=== PATIENT | male | born 1950 | race Caucasian/White ===

== ENCOUNTER → 2016-06-14 | Outpatient (CLI) | payer OTHER ==
[2016-03-29 12:20] VITALS: BP 116/91
[~2016-06-14] MED LIST: CYCL10TA2 PO; DIVA500T4 PO; FLUV100C2 PO; FLUV100T2 PO; HYDR200T PO; HYDR4TAB13 PO; IBUP200C9 PO; LIDO700A4 TP; LORA2TAB89 PO; OMEG-33 PO; OXYC-250 PO; OXYC10TA32 PO; OXYC20OR PO; OXYC20TA34 PO; PRED20TA PO; PRED50TA PO; PRED5SOL PO; PRIM250T28 PO; PROP60CA8 PO; RIVA20TA2 PO; VITA1000 PO
--- NOTE | 2016-06-14 11:26 | KCIC ---
PROCEDURE Bone mineral density exam HISTORY Steroid use, back pain, loss of height COMPARISON None FINDINGS Bone mineral density exam utilizing DEXA was performed. Lumbar spine bone mineral density was 1.290 grams/centimeter squared which corresponds with T-score 1.8 and a Z-score 2.6. Left hip bone mineral density was 1.014 grams/centimeter squared which corresponds with T-score of-0.1 and a Z-score 0.4. World Health Organization criteria for bone mineral density interpretation: Normal T-score greater than or equal to-1.0, Osteopenia T score between-1.0 and-2.5, Osteoporosis T-score less than or equal to-2.5. IMPRESSION There is normal bone density of the lumbar spine and the left hip. Electronically signed by: Dipesh Castro MD (Jun 14, 2016 11:24:59)
== END | disposition home or self-care (01) ==
LOC: KCIC DEXA 10:50
PROVIDERS: ATTEND Internal Medicine Rheumatology
DX: M54.9 Dorsalgia, unspecified (principal); R29.890 Loss of height; M81.8 Other osteoporosis without current pathological fracture
CPT/HCPCS: 77080

== ENCOUNTER → 2016-08-21 | Outpatient (CLI) | payer OTHER ==
[2016-03-29 12:20] VITALS: BP 116/91
--- NOTE | 2016-08-22 00:51 | PAIN ---
DATE OF SERVICE: 08/21/2016 DIAGNOSES: 1. 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 2. Myofascial pain. HISTORY OF PRESENT ILLNESS: The patient is a 66-year-old male who returns for followup status post thoracic facet injections as well as radiofrequency of the thoracic T6-7, T7-8, and T8-9 levels. The patient also has been managed with medication including Percocet and hydromorphone, which he is doing very well with. The patient has increased his activity with greater ease and comfort and is actually walking in today without use of his wheelchair, which is a significant stepper. He is trying to increase his activity better, trying to strengthen his back and leg muscles, he still has some balance issues, but is on his feet today and walking and looking much more comfortable. The patient reports still having pain in his low back as well as his right flank and chest mainly in the upper mid back on the right side. The patient reports it is tolerable with medication and is controlled about 80% without significant side effects. The patient is quite pleased with this. He did have some constipation, but has been using MiraLax with excellent results. We did try some Amitiza within the last visit, but this was only minimally helpful and the patient reports using MiraLax is much more effective and well tolerated. He also is keeping himself hydrated. The patient reports his pain is 4 on a scale 10 today, described as sharp, dull, alternating and worse with activity, but again he has been increasing his activity with better ease and ____ with medications and again without side effects. PHYSICAL EXAMINATION: VITAL SIGNS: The patient's blood pressure is 125/80, pulse 54, respirations are 18, temperature is 98.1 degrees Fahrenheit. Height is 6 feet 1 inch, weight is 276 pounds. GENERAL: The patient is awake, alert, oriented, appropriate, very pleasant demeanor. HEENT: Shows normocephalic, atraumatic. Extraocular movements are intact and symmetrical. Oral cavity, mucous membranes are moist and pink. Dentition is intact. NECK: Shows anterior throat supple without palpable lymphadenopathy noted. Swallow reflex is symmetrical. Neck shows full rotational motion of the cervical spine without difficulty or tenderness. CHEST: Shows normal on inspection. Breath sounds clear to auscultation bilaterally. HEART: Shows S1 and S2 clear. No murmurs are auscultated. BACK: The patient's posterior chest wall and ribs shows some moderate tenderness with palpation in the thoracic paraspinous musculature on the right side compared to the left in the mid and low distribution, but without significant pain in the upper and middle distribution of paraspinous muscles, rhomboid or trapezius, which are supple with palpation today without specific trigger points, without specific tenderness, which is found exceptional for him as he is usually very tender in this region. The patient's lower extremity show deep tendon reflexes at 1+ in the patellar and tendo calcaneus tendons are equal. Motor exam is approximately 4/5 with dorsiflexion, extension and 4/5 with quadriceps and hamstring flexion, but equal and symmetrical bilaterally. Again, the patient is able to stand, stand on his own power, he is not using any assistive devices; however, he is holding on to the wall fairly significantly when ambulating, does look a bit off balance. We discussed perhaps using a cane in the future as well with the patient. Options were discussed with the patient. The patient's old chart was reviewed and his current medication regimen updated. Current review of systems updated to date as well. We will refill the patient's medications of Percocet as well as hydromorphone with instructions, side effects to be aware of discussed. Also encouraged the patient obtain a cane and/or walker. He would like to start with a cane. We gave him some information ____ to obtain one and sizing, etc. Also, the patient will maintain hydration and MiraLax as necessary for constipation. The patient will follow in approximately 60 days, given 2-month prescription refill with instructions, side effects to be aware of. The patient will follow up as scheduled. ABBIE VALENCIA MD DR: JULIEN/sonam JOB#: [id number] / [id number]
== END | disposition home or self-care (01) ==
LOC: PNCL 13:36
PROVIDERS: ATTEND Anesthesiology
DX: M51.34 Other intervertebral disc degeneration, thoracic region (principal); M47.894 Other spondylosis, thoracic region; M51.24 Other intervertebral disc displacement, thoracic region; M79.1 Myalgia
CPT/HCPCS: G0463

== ENCOUNTER 2016-09-16 07:29 | Inpatient (IN) | payer OTHER ==
[~2016-09-16] VITALS: Ht 185.4 cm; Wt 126.1 kg
[2016-09-16] MEDS ORDERED: IV NORMAL SALINE 1000ML BAG 1,000 ML IV SCH (07:44)
[2016-09-16] MEDS ORDERED: IPRATRPIUM/ALBUTEROL 0.5/2.5MG 3 ML NEBU. NEB ONE (07:45)
--- NOTE | 2016-09-16 07:56 | PHYS DOC ---
Past Medical History Past Medical History: Bipolar, Other Additional Past Medical Histor: low back pain, tremors, "unidentified autoimmune disorder" Past Surgical History: Cholecystectomy, Other Additional Past Surgical Histo: pericardial sac removed, lumbar surgery Alcohol Use: None Drug Use: None Adult General Chief Complaint Chief Complaint: SHORTNESS OF BREATH HPI HPI Patient is a 66 year old male brought to the ED by his with the complaint of shortness of air since yesterday, getting worse. Patient does not have any history of COPD or asthma. 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 The patient had shortness of air and "wheezing, rattling, since last evening, worsening. No known fever. Denies vomiting. Denies significant pain at this time. Patient has no history of CHF, A. fib, or coronary artery disease. He had a pericardiectomy in the related to his autoimmune disease. PCP in [place], he sees Dr. Mckee at the pain clinic here, also sees a miniature set constructor. Medications include Depakote 500 twice a day for bipolar, Luvoxx, primidone, Dilaudid and Percocet daily for pain, Inderal 20 twice a day, Flexeril, prednisone 20 mg daily, vitamin E and fish oil Review of Systems Review of Systems Constitutional: No known fever per the patient or Eyes: Denies change in visual acuity, redness, or eye pain [] HENT: Denies nasal congestion or sore throat [] Respiratory: As in history of present illness Cardiovascular: No significant chest pain changed from usual GI: Denies abdominal pain, nausea, vomiting, bloody stools or diarrhea [] : Denies dysuria or hematuria [] Musculoskeletal: Chronic back and joint pain Integument: Denies rash or skin lesions [] Neurologic: Denies headache, focal weakness or sensory changes [] Current Medications Current Medications Current Medications Medications (Trade) Dose Ordered Sig/Ayanna Start Time Stop Time Status Last Admin Dose Admin Albuterol/ Ipratropium 3 ml 3 ml 1X ONCE 09/16/16 07:45 09/16/16 07:47 DC 09/16/16 08:02 3 ML Sodium Chloride (Iv Sodium Chloride 0.9% 1000ml Bag) 1,000 ml @ 100 mls/hr Q10H 09/16/16 07:56 Allergies Allergies Allergies Coded Allergies Type Severity Reaction Last Updated Verified No Known Allergies Allergy Unknown 10/27/13 Yes Physical Exam Physical Exam Constitutional: Obese male, appears dyspneic on room air, alert, color is good, mentating normally, pulse ox on room air 93% HENT: Normocephalic, atraumatic, bilateral external ears normal, nose normal. [ ] Eyes:, conjunctiva normal, no discharge. [] Neck: Normal range of motion, no stridor. [] Cardiovascular:Heart rate regular rhythm, no murmur [] Lungs & Thorax: Breath sounds present bilaterally, mildly diminished, no prolongation of expiratory phase, expiratory wheezes mild, scattered throughout Abdomen: Obese, Bowel sounds normal, soft, no tenderness, no masses, no pulsatile masses. [] Skin: Warm, dry, no erythema, no rash. [] Extremities: No tenderness, no cyanosis, no clubbing, ROM intact, no edema. [] Neurologic: Alert and oriented X 3, normal motor function, normal sensory function, no focal deficits noted. [] Current Patient Data Vital Signs Vital Signs Date Time Temp Pulse Resp B/P Pulse Ox O2 Delivery O2 Flow Rate FiO2 09/16/16 07:56 95 Nasal Cannula 2.0 09/16/16 07:51 75 24 152/95 09/16/16 07:35 99.2 99.2 Lab Values Laboratory Tests Test 09/16/16 07:47 09/16/16 07:55 09/16/16 08:25 White Blood Count 12.3x10^3/uL (4.0-11.0) H Red Blood Count 3.89x10^6/uL (4.30-5.70) L Hemoglobin 11.5g/dL (13.0-17.5) L Hematocrit 35.8% (39.0-53.0) L Mean Corpuscular Volume 92fL (79-100) Mean Corpuscular Hemoglobin 30pg (25-35) Mean Corpuscular Hemoglobin Concent 32g/dL (31-37) Red Cell Distribution Width 13.6% (11.5-14.5) Platelet Count 203x10^3/uL (140-400) Neutrophils (%) (Auto) 65% (31-73) Lymphocytes (%) (Auto) 23% (24-48) L Monocytes (%) (Auto) 10% (0-9) H Eosinophils (%) (Auto) 1% (0-3) Basophils (%) (Auto) 0% (0-3) Neutrophils # (Auto) 8.0x10^3uL (1.8-7.7) H Lymphocytes # (Auto) 2.9x10^3/uL (1.0-4.8) Monocytes # (Auto) 1.3x10^3/uL (0.0-1.1) H Eosinophils # (Auto) 0.1x10^3/uL (0.0-0.7) Basophils # (Auto) 0.1x10^3/uL (0.0-0.2) Sodium Level 136mmol/L (136-145) Potassium Level 4.2mmol/L (3.5-5.1) Chloride Level 98mmol/L (98-107) Carbon Dioxide Level 31mmol/L (21-32) Anion Gap 7 (6-14) Blood Urea Nitrogen 19mg/dL (8-26) Creatinine 1.0mg/dL (0.7-1.3) Estimated GFR (Cockcroft-Gault) 75.0 BUN/Creatinine Ratio 19 (6-20) Glucose Level 95mg/dL (70-99) Lactic Acid Level 1.4mmol/L (0.4-2.0) Calcium Level 8.7mg/dL (8.5-10.1) Total Bilirubin 0.3mg/dL (0.2-1.0) Aspartate Amino Transferase (AST) 20U/L (15-37) Alanine Aminotransferase (ALT) 31U/L (16-63) Alkaline Phosphatase 54U/L (46-116) Creatine Kinase 28U/L (39-308) L Creatine Kinase MB (Mass) < 0.5ng/mL (0.0-3.6) Creatine Kinase MB Relative Index % (0-4) Troponin I Quantitative < 0.017ng/mL (0.000-0.055) AJ-Rvv-S-Type Natriuretic Peptide 2190pg/mL (0-124) H Total Protein 7.4g/dL (6.4-8.2) Albumin 3.0g/dL (3.4-5.0) L Albumin/Globulin Ratio 0.7 (1.0-1.7) L Influenza Type A Antigen Negative (NEGATIVE) Influenza Type B Antigen Negative (NEGATIVE) Urine Collection Type Void Urine Color Yellow Urine Clarity Clear Urine pH 6.5 Urine Specific [place] 1.020 Urine Protein Negativemg/dL (NEG-TRACE) Urine Glucose (UA) Negativemg/dL (NEG) Urine Ketones (Stick) Negativemg/dL (NEG) Urine Blood Small (NEG) Urine Nitrite Negative (NEG) Urine Bilirubin Negative (NEG) Urine Urobilinogen Dipstick 1.0mg/dL (0.2 mg/dL) Urine Leukocyte Esterase Trace (NEG) Urine RBC 3-5/HPF (0-2) Urine WBC Occ/HPF (0-4) Urine Bacteria 0/HPF (0-FEW) Laboratory Tests 09/16/16 07:47 Laboratory Tests 09/16/16 07:47 EKG EKG 12-lead EKG read by me. Sinus rhythm. One PAC. There are no acute ST or T wave changes indicative of ischemia or infarction. No STEMI. 0741 [] Radiology/Procedures Radiology/Procedures [] Course & Med Decision Making Course & Med Decision Making Pertinent Labs and Imaging studies reviewed. 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 He has no history of cardiac disease, no history of CHF or A. fib, he has no edema and does not appear wet. EKG appears normal. His temp is slightly elevated at 99 to, I believe he likely has pneumonia. We'll start him with a breathing treatment during ED evaluation. It does not seem like the albuterol treatment helped his symptoms much. Chest x- ray clear. I'm still suspicious of pneumonia. I discussed with the radiologist, Dr. Lora, and will order a CT scan of his chest with contrast. Recheck patient at 0850. He is resting more comfortably wearing 2 L nasal cannula. He is laying flat on the cart with no dyspnea. I stopped his IV fluids. At this time did not give him any IV furosemide because I'd like to see the results of the CT scan. I discussed the case with Dr. Solorzano, [facility] medicine, who will admit the patient. I wrote bridge orders. Patient and his are agreeable to the plan for admission. [] Dragon Disclaimer Dragon Disclaimer This electronic medical record was generated, in whole or in part, using a voice recognition dictation system. Departure Departure Impression: Primary Impression: Community acquired pneumonia Additional Impression: Steroid dependent Disposition: ADMITTED INPATIENT Admitting Physician: Edgar Solorzano Condition: STABLE Referrals: ANUEL MAYER MD (PCP) Problem Qualifiers UBALDO ALVARENGA MD Sep 16, 2016 07:55
[2016-09-16 08:04] LABS: BASO # 0.1 x10^3/uL (0.0-0.2); BASO % 0 % (0-3); EOS % 1 % (0-3); HEMATOCRIT 35.8 % (39.0-53.0); HEMOGLOBIN 11.5 g/dL (13.0-17.5); LYMPH # 2.9 x10^3/uL (1.0-4.8); LYMPH % 23 % (24-48); MEAN CORPUSCULAR HEMOGLOBIN 30 pg (25-35); MEAN CORPUSCULAR HGB CONC 32 g/dL (31-37); MEAN CORPUSCULAR VOLUME 92 fL (79-100); MONO % 10 % (0-9); NEUT % 65 % (31-73); PLATELET COUNT 203 x10^3/uL (140-400); RED BLOOD COUNT 3.89 x10^6/uL (4.30-5.70); RED CELL DISTRIBUTION WIDTH 13.6 % (11.5-14.5); WHITE BLOOD COUNT 12.3 x10^3/uL (4.0-11.0)
[2016-09-16 08:15] LABS: CALCIUM 8.7 mg/dL (8.5-10.1); POTASSIUM 4.2 mmol/L (3.5-5.1)
[2016-09-16 08:19] LABS: ALBUMIN/GLOBULIN RATIO 0.7 (1.0-1.7); TOTAL BILIRUBIN 0.3 mg/dL (0.2-1.0); TOTAL PROTEIN 7.4 g/dL (6.4-8.2)
--- NOTE | 2016-09-16 08:24 | RAD ---
PORTABLE CHEST 1V Clinical Indication: soa Comparison: April 15, 2015 Technique: Single portable upright AP view of the chest is obtained. Findings: The patient is rotated to the right. No focal consolidation, pleural effusion or pneumothorax is seen. The inferior lateral left costophrenic angle is excluded from view. The cardiomediastinal silhouette appears stable in size, with stable cardiomegaly. Median sternotomy wires are redemonstrated. Visualized osseous structures and overlying soft tissues demonstrate no acute interval change. IMPRESSION: No focal consolidation or acute radiographic change.
[2016-09-16 08:31] LABS: CKMB MASS < 0.5 ng/mL (0.0-3.6); CREATINE KINASE 28 U/L (39-308)
[2016-09-16 08:32] LABS: OBC FLU VALID
[2016-09-16 08:33] LABS: BILIRUBIN,URINE NEGATIVE (NEG); GLUCOSE,URINE NEGATIVE (NEG); NITRITE,URINE NEGATIVE (NEG); PH,URINE 6.5; PROTEIN,URINE NEGATIVE (NEG-TRACE)
[2016-09-16 08:57] LABS: BACTERIA,URINE 0 /HPF (0-FEW); WBC,URINE OCC /HPF (0-4)
[2016-09-16] MEDS ORDERED: CONTRAST GIVEN MC PRN (09:15)
[2016-09-16] MEDS ORDERED: IOHEXOL 300 MG/ML 75 ML VIAL IV ONE (09:15)
--- NOTE | 2016-09-16 09:45 | ACF ---
Admit Criteria Forms Admit Criteria Forms Admit Criteria Forms PNEUMONIA, COMMUNITY ACQUIRED Clinical Indications for Admission to Inpatient Care ( Place 'X' for any and all applicable criteria): Admission is indicated for ANY ONE of the following (1)(2)(3): [ ]I. Hypoxemia indicated by ANY ONE of the following: [ ]a) Oxygen saturation less than 90% while breathing room air [ ]b) PO2 less than 60 mm Hg (8.0 kPa) while breathing room air [ ]c) Chronic lung disease with significant deterioration from baseline oxygenation [ ]II. Appropriate diagnostic testing and treatment unavailable in outpatient or recovery facility (eg,testing or infection control measures unavailable(10) [ ]III. Moderate-risk or high-risk category patients (Pneumonia Severity Index (PSI) class IV or V, or CURB-65 score of 3 or greater). [ ]IV. Outpatient treatment failure as indicated by ANY ONE of the following(9) : [ ]a) Failure to respond to antibiotic (eg, resistant organism) [ ]b) Clinically significant adverse effects from medication (eg, vomiting) [ ]c) Complications of pneumonia (eg, empyema, bacteremia) [ ]d) Significant worsening of comorbid cond necessitating inpatient care (eg, chronic heart failure) [ ]V. Intermediate-risk category patients (eg, PSI class III or CURB-65 score 2) who do not improve with initial therapy and observation. [ ]. Immunocompromised patients (eg, AIDS, chronic steroid use) at moderate or high risk based on clinical evaluation. [ ]VII. Complicated pleural effusions (eg, exudative, loculated) [ ]VIII.Hemodynamic instability [ ] IX. Altered mental status that is severe or persistent. [ ]X. Dehydration that is severe or persistent. [ ]XI. Bacteremia [X]XII. Respiratory finding (eg. tachypnea) that do not respond to outpatient or observation care treatment Extended stay beyond goal length of stay may be needed for (20) [ ]a) Unclear diagnosis [ ]b) Pleural disease [ ]c) Severe pneumonia or treatment failure (25 [ ]d) Respiratory failure (anticipate invasive or noninvasive ventilatory support) [ ]e) Abnormal serum electrolytes (serum Na concentration less than 135 mEq/L (mmol/L) (32)(33) [ ]f) Clinically significant comorbid illness (eg, heart failure, atrial fibrillation with rapid heart rate, alcohol withdrawal, renal insufficiency)(34)(35) [ ]g) Comorbid acute exacerbation of COPD(36) [ ]h) Concomitant diagnosis of malignancy that may be associated with malnutrition, immunologic impairment, or bronchial obstruction. [ ]i) Concomitant altered mental status [ ]j) Culture-identified Gram-negative or antibiotic-resistant organism (eg, Pseudomonas, methicillin-resistant Staphylococcus aureus)(30) [ ]k) Healthcare-associated pneumonia The original [email or web address] content created by [employer] has been revised. The portions of the content which have been revised are identified through the use of italic text or in bold, and [facility] has neither reviewed nor approved the modified material. All other unmodified content is copyright [email or web address]. Please see references footnoted in the original [email or web address] edition 2016 SUDHA GALLARDO Sep 16, 2016 09:45
--- NOTE | 2016-09-16 09:57 | RAD ---
EXAM: Chest CT with intravenous contrast. HISTORY: 66-year-old male with shortness of breath, crackles when breathing. TECHNIQUE: Computed tomographic images of the chest were obtained following the administration of 75 cc of Omni 300 intravenous contrast. Multiplanar reformatting was performed. PQRS Compliance Statement: One or more of the following individualized dose reduction techniques were utilized for this examination: 1. Automated exposure control 2. Adjustment of the mA and/or kV according to patient size 3. Use of iterative reconstruction technique COMPARISON: May 14, 2005. FINDINGS: No focal consolidation is present. Scattered centrilobular nodules and opacities are present within the right lung. The left lung is clear. No significant pleural effusion or pneumothorax is present. Central airways remain patent. A few scattered mediastinal lymph nodes are present, although without significant change when compared to the previous CT exam. Post-CABG changes are present. Heart is within upper limits of normal in size, without pericardial effusion. Coronary artery calcification is present. Thoracic aorta is normal in caliber with scattered atherosclerotic calcification. Overlying soft tissues and visualized osseous structures demonstrate no acute or suspicious finding. Visualized upper abdomen demonstrates no acute finding. Gallbladder is surgically absent. Degenerative changes are present throughout the spine. Healed anterior right-sided rib fractures are present. Median sternotomy wires are present. Post kyphoplasty changes at the L1 level. IMPRESSION: Scattered centrilobular nodules and groundglass opacities within the right lung, likely represent an infectious or inflammatory etiology. No focal consolidation. Left lung is clear.
[2016-09-16 10:25] VITALS: BP 134/74
[2016-09-16] MEDS ORDERED: PRIM250T (10:54)
[2016-09-16] MEDS ORDERED: OXYC1TAB9 (10:54)
[2016-09-16] MEDS ORDERED: DIVA500T4 PO (10:54)
[2016-09-16] MEDS ORDERED: FLUV100T2 PO (10:57)
[2016-09-16 10:59] VITALS: BP 134/74
[2016-09-16] MEDS ORDERED: PROP20TA PO (11:03)
[2016-09-16] MEDS ORDERED: DOCU-27 PO (11:03)
[2016-09-16] MEDS ORDERED: SENN8.6T3 PO (11:03)
--- NOTE | 2016-09-16 11:08 | PDOC ---
Provider Note Provider Note [id number] acute resp faiil acute bronchitis vs pneumonia ae of copd ? id consult, see orders. МАРИЯ MAJANO MD Sep 16, 2016 11:08
[2016-09-16] MEDS: IV NORMAL SALINE 1000ML BAG 1,000 ML IV SCH ×3 (11:49→23:00)
--- NOTE | 2016-09-16 11:55 | CONS ---
DATE OF CONSULTATION: 09/16/2016 I was asked to see this 66-year-old gentleman for shortness of breath, cough, wheezing. HISTORY OF PRESENT ILLNESS: He is a lifelong nonsmoker. He has history of pulmonary embolism two years ago, he was on Eliquis for 4 months. He has some sort of autoimmune disease and he is on prednisone 20 mg daily, so he has good days and bad days worth, but for the past 2 or 3 days he has had increased shortness of breath and cough with no sputum production. He denies chest pain, but has had wheezing. He has excessive daytime sleepiness, had an overnight oximetry done 2 years ago, which was not suggestive of sleep apnea. PAST MEDICAL HISTORY: Pulmonary embolism, back surgery, autoimmune disorder. ALLERGIES: No known drug allergies. MEDICATIONS: Currently, he is on IV fluid. SOCIAL HISTORY: He is a lifelong nonsmoker. FAMILY HISTORY: There is no history of lung disease. REVIEW OF SYSTEMS: As mentioned as above, other systems otherwise negative. PHYSICAL EXAMINATION: GENERAL: This is an obese gentleman. VITAL SIGNS: His O2 saturation on 2 liters of oxygen is 95%, respiratory rate 24, heart rate 75, temperature 99.2. HEENT: Normocephalic, atraumatic. Pupils are equal, round and reactive to light. Throat is clear. There is dependent palate right tongue base. Nose is clear. NECK: There is no JVD, lymphadenopathy or thyromegaly. CARDIOVASCULAR: Regular rate and rhythm. PMI is nondisplaced. CHEST: Inspection is normal. LUNGS: There is bilateral end expiratory wheezing. Percussion is within normal limit. ABDOMEN: Soft and obese. Bowel sounds are good. There is no mass. EXTREMITIES: There is no edema. LYMPHATICS: There is no lymphadenopathy. NEUROLOGIC: Alert and oriented x 3. SKIN: Chronic changes. LABORATORY DATA: I reviewed the following lab data: Chest x-ray shows no infiltrates. CT of the chest shows scattered centrilobular nodules and ground-glass opacities within the right lung. Left lung is clear. IMPRESSION: 1. Acute respiratory failure, multifactorial in etiology including acute exacerbation of asthma, acute bronchitis versus pneumonia versus others. 2. Abnormal CT of the chest. 3. Acute exacerbation of asthma. 4. Acute bronchitis versus pneumonia. 5. Immunocompromised. 6. Obesity, excessive daytime sleepiness, probable obstructive sleep apnea-hypopnea syndrome. 7. Autoimmune disease. 8. Leukocytosis. 9. Anemia. PLAN AND RECOMMENDATIONS: 1. Titrate the FiO2 to keep O2 saturation 92%. 2. Start bronchodilator. 3. Start Pulmicort. 4. Start Solu-Medrol 40 mg IV every 8 hours. 5. Protonix and Lovenox for deep venous thrombosis and stress ulcer prophylaxis. 6. Legionella and strep pneumoniae antigen. 7. I do recommend Infectious Disease consultation. The patient is immunocompromised. 8. Start Levaquin. 9. If he does not improve, he may require bronchoscopy to rule out atypical or opportunistic infection. 10. I do recommend sleep study as an outpatient. 11. Monitor respiratory status very closely. 12. Echocardiogram. 13. The findings and recommendations were discussed with the patient and his . They understood and agreed to proceed with the plan. I have answered all of their questions. Thank you very much for allowing me to participate in care of this very nice gentleman. МАРИЯ MAJANO M.D. DR: COREY/sonam JOB#: [id number] / [id number]
[2016-09-16] MEDS: IPRATRPIUM/ALBUTEROL 0.5/2.5MG 3 ML NEBU. NEB SCH ×3 (12:00→20:28)
[2016-09-16] MEDS: BUDESONIDE 0.5 MG/2 ML NEBU. NEB SCH ×2 (12:00→20:29)
--- NOTE | 2016-09-16 12:02 | EKG ---
[facility] [address] [place] [id number] Test Date: 2016-09-16 Test Time: 07:41:37 Pat Name: KENROY MCKINNEY Department: Room: Gender: M Direct Mail Coordinator: : 1950 Requested By: UBALDO ALVARENGA Order Number: [id number] Reading MD: Measurements Intervals [place] Rate: 70 P: 0 MS: 308 QRS: -24 QRSD: 106 T: 31 QT: 376 QTc: 409 Interpretive Statements SINUS RHYTHM PROLONGED MS INTERVAL LEFTWARD AXIS RI6.01 No previous ECG available for comparison
[2016-09-16] MEDS ORDERED: HYDROMORPHONE 4 MG TABLET. PO PRN (13:30)
[2016-09-16] MEDS ORDERED: CYCLOBENZAPRINE 10 MG TABLET. PO PRN (13:30)
[2016-09-16] MEDS ORDERED: SENNOSIDES 8.6 MG TABLET PO PRN (13:30)
[2016-09-16] MEDS ORDERED: DOCUSATE SODIUM 100 MG CAPSULE. PO PRN (13:30)
[2016-09-16] MEDS ORDERED: methylPREDNISolone SOD SUCC PF 40 MG/ML VIAL. IV SCH (14:00)
[2016-09-16] MEDS ORDERED: PREDNISONE 20 MG TABLET PO SCH (14:00)
[2016-09-16] MEDS: DIVALPROEX EXTENDED RELEASE 500 MG TAB.ER.24H. PO SCH ×2 (14:52→21:25)
[2016-09-16] MEDS: OXYCODONE/APAP 10/325 TABLET. PO PRN (14:52)
[2016-09-16 15:00] VITALS: BP 133/90
[2016-09-16] MEDS: ENOXAPARIN 40 MG/0.4 ML SYRINGE. SQ SCH (17:06)
[2016-09-16] MEDS: PRIMIDONE 250 MG TABLET PO SCH ×2 (17:06→21:26)
[2016-09-16 19:57] VITALS: BP 143/92
[2016-09-16] MEDS ORDERED: PRIMIDONE 250 MG TABLET PO SCH (21:00)
[2016-09-16] MEDS: PROPRANOLOL 10 MG TABLET. PO SCH (21:00)
[2016-09-16] MEDS: OMEGA-3 FATTY ACIDS/FISH OIL 1,000 MG CAPSULE. PO SCH (21:25)
[2016-09-16 23:11] VITALS: BP 148/84
--- NOTE | 2016-09-17 00:37 | HP ---
ADMIT DATE: 09/16/2016 CHIEF COMPLAINT: Shortness of breath. HISTORY OF PRESENT ILLNESS: A 66-year-old male patient with several comorbid conditions, presented to the ER with complaints of shortness of breath for 3 days with cough with minimal expectoration. The patient's ability to function is limited due to comorbid conditions; however, for last few days, his shortness of breath is very high. He denies any fever or chills. He is chronically taking steroids for his unknown rheumatological condition. At the time of arrival to the ER, the patient was with shortness of breath; however, he was saturating more than 90% on 2 liters of oxygen. He is actively wheezing. He denies any sick contacts or travel history. PAST MEDICAL HISTORY: Pulmonary embolism, back surgery, and rheumatological condition. ALLERGIES: NKDA. MEDICATIONS: Reviewed and reconciled. Please see MRAD. SOCIAL HISTORY: No smoking, no alcohol, no drug abuse. FAMILY HISTORY: No coronary artery disease or lung conditions. REVIEW OF SYSTEMS: CONSTITUTIONAL: No fever or chills. EYES: No recent vision changes. SKIN: No rash or itching. CARDIOVASCULAR: No chest pain, syncope, palpitations or edema. RESPIRATORY: Short of breath and cough. GASTROINTESTINAL: No nausea, vomiting, diarrhea or abdominal pain. NEUROLOGICAL: No headache, paralysis. ENDOCRINOLOGIC: No cold or heat intolerance. GENITOURINARY: No burning with urination, no urgency. MUSCULOSKELETAL: No back pain or joint pain. LYMPHATICS: No enlarged nodes. PSYCHIATRIC: No anxiety or depression. PHYSICAL EXAM: GENERAL: The patient is in distress. VITAL SIGNS: Temperature 97.8, pulse is 71, respirations 20, blood pressure 134/74, pulse ox 98% on 2 liters. HEENT: Head normocephalic, atraumatic. NECK: Supple. LUNGS: There is bilateral inspiratory and expiratory wheezing present. Normal air entry. HEART: Regular rate and rhythm; S1, S2 present; pulses intact. ABDOMEN: Soft and positive bowel sounds. EXTREMITIES: No cyanosis or edema. NEUROLOGIC: Normal speech and normal tone; alert and oriented. PSYCHIATRIC: Normal affect, normal mood. SKIN: No ulceration. LABORATORY DATA: WBC 12.3, hemoglobin is ____, MCV 92, platelets 203. Chemistry: Sodium 136, potassium 4.2, chloride is 98, anion gap is 7, BUN is 19, creatinine 1.0, ____. Troponin is less than 0.017. Albumin is 3.0. Urine: Color is yellow, pH is 6.5, protein negative, blood small, nitrites negative, bilirubin negative. Influenza A and B negative. IMAGING STUDIES: CT of the chest showed scattered centrilobular nodules and ground-glass opacities within the right lung, possible infectious or inflammatory process. No solid consolidation seen. ASSESSMENT: 1. Acute respiratory failure present on admission. Possible differential infectious versus inflammatory process. 2. Possible acute bronchitis. 3. Immunocompromised, chronic steroid use. 4. Obesity. BMI is 37.0. 5. Mild leukocytosis. 6. Physical debility. PLAN: 1. The patient has been kept on oxygen to keep saturations around 90% and DuoNebs every 4-6 hours for symptomatic relief. 2. Pulmonology has been started on Pulmicort and IV Solu-Medrol 40 mg t.i.d. 3. Lovenox for DVT prophylaxis. 4. He has been started on IV Levaquin in the ER. We will continue that. 5. Labs for legionella and pneumococcal antigen are pending. 6. Echocardiogram ordered and it is pending. 7. Monitor clinical response closely. 8. DVT prophylaxis with Lovenox. JOVANA CISNEROS MD DR: ODALYS/sonam JOB#: [id number] / [id number]
[2016-09-17] MEDS: OXYCODONE/APAP 10/325 TABLET. PO PRN ×2 (01:41→07:49)
[2016-09-17 03:52] VITALS: BP 141/89
[2016-09-17 07:00] VITALS: BP 158/110
--- NOTE | 2016-09-17 07:45 | PDOC ---
PULMONARY PROGRESS NOTES Subjective sob, cough, improved, has back pain, no runny nose. Vitals Vital Signs Date Time Temp Pulse Resp B/P Pulse Ox O2 Delivery O2 Flow Rate FiO2 09/17/16 03:52 97.7 67 18 141/89 97 Nasal Cannula 2.0 97.7 ROS: No Nausea, No Chest Pain, No Abdominal Pain General: Alert HEENT: Other (nc at perrl, nose clear, shallow oropharynx) Lungs: Other (a few end exp wheezing, better air movement) Cardiovascular: S1, S2 Abdomen: Soft, Non-tender Neuro Exam: Alert, Oriented Extremities: Other (edema) Skin: Warm Labs Laboratory Tests Test 09/16/16 07:47 09/16/16 07:55 09/16/16 08:25 White Blood Count 12.3x10^3/uL (4.0-11.0) Red Blood Count 3.89x10^6/uL (4.30-5.70) Hemoglobin 11.5g/dL (13.0-17.5) Hematocrit 35.8% (39.0-53.0) Mean Corpuscular Volume 92fL (79-100) Mean Corpuscular Hemoglobin 30pg (25-35) Mean Corpuscular Hemoglobin Concent 32g/dL (31-37) Red Cell Distribution Width 13.6% (11.5-14.5) Platelet Count 203x10^3/uL (140-400) Neutrophils (%) (Auto) 65% (31-73) Lymphocytes (%) (Auto) 23% (24-48) Monocytes (%) (Auto) 10% (0-9) Eosinophils (%) (Auto) 1% (0-3) Basophils (%) (Auto) 0% (0-3) Neutrophils # (Auto) 8.0x10^3uL (1.8-7.7) Lymphocytes # (Auto) 2.9x10^3/uL (1.0-4.8) Monocytes # (Auto) 1.3x10^3/uL (0.0-1.1) Eosinophils # (Auto) 0.1x10^3/uL (0.0-0.7) Basophils # (Auto) 0.1x10^3/uL (0.0-0.2) Sodium Level 136mmol/L (136-145) Potassium Level 4.2mmol/L (3.5-5.1) Chloride Level 98mmol/L (98-107) Carbon Dioxide Level 31mmol/L (21-32) Anion Gap 7 (6-14) Blood Urea Nitrogen 19mg/dL (8-26) Creatinine 1.0mg/dL (0.7-1.3) Estimated GFR (Cockcroft-Gault) 75.0 BUN/Creatinine Ratio 19 (6-20) Glucose Level 95mg/dL (70-99) Lactic Acid Level 1.4mmol/L (0.4-2.0) Calcium Level 8.7mg/dL (8.5-10.1) Total Bilirubin 0.3mg/dL (0.2-1.0) Aspartate Amino Transf (AST/SGOT) 20U/L (15-37) Alanine Aminotransferase (ALT/SGPT) 31U/L (16-63) Alkaline Phosphatase 54U/L (46-116) Creatine Kinase 28U/L (39-308) Creatine Kinase MB (Mass) < 0.5ng/mL (0.0-3.6) Creatine Kinase MB Relative Index % (0-4) Troponin I Quantitative < 0.017ng/mL (0.000-0.055) ZK-[id number]-Type Natriuretic Peptide 2190pg/mL (0-124) Total Protein 7.4g/dL (6.4-8.2) Albumin 3.0g/dL (3.4-5.0) Albumin/Globulin Ratio 0.7 (1.0-1.7) Influenza Type A Antigen Negative (NEGATIVE) Influenza Type B Antigen Negative (NEGATIVE) Urine Collection Type Void Urine Color Yellow Urine Clarity Clear Urine pH 6.5 Urine Specific [place] 1.020 Urine Protein Negativemg/dL (NEG-TRACE) Urine Glucose (UA) Negativemg/dL (NEG) Urine Ketones (Stick) Negativemg/dL (NEG) Urine Blood Small (NEG) Urine Nitrite Negative (NEG) Urine Bilirubin Negative (NEG) Urine Urobilinogen Dipstick 1.0mg/dL (0.2 mg/dL) Urine Leukocyte Esterase Trace (NEG) Urine RBC 3-5/HPF (0-2) Urine WBC Occ/HPF (0-4) Urine Bacteria 0/HPF (0-FEW) Laboratory Tests Test 09/16/16 07:47 09/16/16 07:55 09/16/16 08:25 White Blood Count 12.3x10^3/uL (4.0-11.0) Red Blood Count 3.89x10^6/uL (4.30-5.70) Hemoglobin 11.5g/dL (13.0-17.5) Hematocrit 35.8% (39.0-53.0) Mean Corpuscular Volume 92fL (79-100) Mean Corpuscular Hemoglobin 30pg (25-35) Mean Corpuscular Hemoglobin Concent 32g/dL (31-37) Red Cell Distribution Width 13.6% (11.5-14.5) Platelet Count 203x10^3/uL (140-400) Neutrophils (%) (Auto) 65% (31-73) Lymphocytes (%) (Auto) 23% (24-48) Monocytes (%) (Auto) 10% (0-9) Eosinophils (%) (Auto) 1% (0-3) Basophils (%) (Auto) 0% (0-3) Neutrophils # (Auto) 8.0x10^3uL (1.8-7.7) Lymphocytes # (Auto) 2.9x10^3/uL (1.0-4.8) Monocytes # (Auto) 1.3x10^3/uL (0.0-1.1) Eosinophils # (Auto) 0.1x10^3/uL (0.0-0.7) Basophils # (Auto) 0.1x10^3/uL (0.0-0.2) Sodium Level 136mmol/L (136-145) Potassium Level 4.2mmol/L (3.5-5.1) Chloride Level 98mmol/L (98-107) Carbon Dioxide Level 31mmol/L (21-32) Anion Gap 7 (6-14) Blood Urea Nitrogen 19mg/dL (8-26) Creatinine 1.0mg/dL (0.7-1.3) Estimated GFR (Cockcroft-Gault) 75.0 BUN/Creatinine Ratio 19 (6-20) Glucose Level 95mg/dL (70-99) Lactic Acid Level 1.4mmol/L (0.4-2.0) Calcium Level 8.7mg/dL (8.5-10.1) Total Bilirubin 0.3mg/dL (0.2-1.0) Aspartate Amino Transf (AST/SGOT) 20U/L (15-37) Alanine Aminotransferase (ALT/SGPT) 31U/L (16-63) Alkaline Phosphatase 54U/L (46-116) Creatine Kinase 28U/L (39-308) Creatine Kinase MB (Mass) < 0.5ng/mL (0.0-3.6) Creatine Kinase MB Relative Index % (0-4) Troponin I Quantitative < 0.017ng/mL (0.000-0.055) BE-Rtn-S-Type Natriuretic Peptide 2190pg/mL (0-124) Total Protein 7.4g/dL (6.4-8.2) Albumin 3.0g/dL (3.4-5.0) Albumin/Globulin Ratio 0.7 (1.0-1.7) Influenza Type A Antigen Negative (NEGATIVE) Influenza Type B Antigen Negative (NEGATIVE) Urine Collection Type Void Urine Color Yellow Urine Clarity Clear Urine pH 6.5 Urine Specific [place] 1.020 Urine Protein Negativemg/dL (NEG-TRACE) Urine Glucose (UA) Negativemg/dL (NEG) Urine Ketones (Stick) Negativemg/dL (NEG) Urine Blood Small (NEG) Urine Nitrite Negative (NEG) Urine Bilirubin Negative (NEG) Urine Urobilinogen Dipstick 1.0mg/dL (0.2 mg/dL) Urine Leukocyte Esterase Trace (NEG) Urine RBC 3-5/HPF (0-2) Urine WBC Occ/HPF (0-4) Urine Bacteria 0/HPF (0-FEW) Medications Active Scripts Medications Dose Route/Sig Days Date Category Senna (Sennosides) 8.6 Mg Tablet 8.6 Mg PO PRN 09/16/16 Reported Colace (Docusate Sodium) 100 Mg Capsule 1 Cap PO BID PRN 09/16/16 Reported Propranolol Hcl 20 Mg Tablet 1 Tab PO BID 09/16/16 Reported Fluvoxamine Maleate 100 Mg Tablet 300 Mg PO DAILY06 09/16/16 Reported Depakote Er (Divalproex Sodium) 500 Mg Tab.er.24h 1 Tab PO BID 09/16/16 Reported Primidone 250 Mg Tablet 250 BID 09/16/16 Reported Plaquenil (Hydroxychloroquine Sulfate) 200 Mg Tablet 200 Mg PO BID 03/06/16 Reported Prednisone 20 Mg Tablet 20 Mg PO DAILY 09/29/15 Reported Percocet 10-325 Mg Tablet (Oxycodone/Acetaminophen) 1 Each Tablet 1 Tab PO Q4-6HRS 06/09/15 Reported Cyclobenzaprine Hcl 10 Mg Tablet 10 Mg PO TID PRN 06/25/14 Reported Dilaudid (Hydromorphone Hcl) 4 Mg Tablet 8 Mg PO PRN Q6HRS PRN 12/18/13 Reported Vitamin E 1,000 Unit Capsule 1,000 Unit PO DAILY 07/22/13 Reported Mysoline (Primidone) 250 Mg Tablet 250 Mg PO BID 07/22/13 Reported [place] 3 1,000 Mg Softgel ([place]-3 Fatty Acids/Fish Oil) 1 Each Capsule 1 Each PO TID 07/22/[address] reviewed, Scattered centrilobular nodules and groundglass opacities within the right lung, likely represent an infectious or inflammatory etiology. No focal consolidation. Left lung is clear. Impression . IMPRESSION: 1. Acute respiratory failure, multifactorial in etiology including acute exacerbation of asthma, acute bronchitis versus pneumonia versus others. 2. Abnormal CT of the chest. 3. Acute exacerbation of asthma. 4. Acute bronchitis versus pneumonia. 5. Immunocompromised. 6. Obesity, excessive daytime sleepiness, probable obstructive sleep apnea-hypopnea syndrome. 7. Autoimmune disease. 8. Leukocytosis. 9. Anemia. Plan . PLAN AND RECOMMENDATIONS: 1. Titrate the FiO2 to keep O2 saturation 92%. 2. bronchodilator. 3. Pulmicort. 4. change Solu-Medrol to 40 mg IV every 12 hours. 5. Protonix and Lovenox for deep venous thrombosis and stress ulcer prophylaxis. 6. Legionella and strep pneumoniae antigen. 7. ?Infectious Disease consultation. 8. Levaquin. 9. If he does not improve, he may require bronchoscopy to rule out atypical or opportunistic infection. 10. I do recommend sleep study as an outpatient. 11. Monitor respiratory status very closely. 12. Echocardiogram. 13. The findings and recommendations were discussed with the patient and his . They understood and agreed to proceed with the plan. I have answered all of their questions. МАРИЯ MAJANO MD Sep 17, 2016 07:45
[2016-09-17] MEDS: BUDESONIDE 0.5 MG/2 ML NEBU. NEB SCH ×2 (08:24→20:44)
[2016-09-17] MEDS: IPRATRPIUM/ALBUTEROL 0.5/2.5MG 3 ML NEBU. NEB SCH ×4 (08:24→20:44)
[2016-09-17] MEDS: methylPREDNISolone SOD SUCC PF 40 MG/ML VIAL. IV SCH ×2 (08:51→20:25)
[2016-09-17] MEDS: DIVALPROEX EXTENDED RELEASE 500 MG TAB.ER.24H. PO SCH ×2 (08:52→20:26)
[2016-09-17] MEDS: OMEGA-3 FATTY ACIDS/FISH OIL 1,000 MG CAPSULE. PO SCH ×3 (08:52→20:26)
[2016-09-17] MEDS: FLUVOXAMINE MALEATE 25 MG PO SCH (08:52)
[2016-09-17] MEDS: VITAMIN E 200 UNIT CAPSULE. PO SCH (08:52)
[2016-09-17] MEDS: PROPRANOLOL 10 MG TABLET. PO SCH ×2 (08:53→20:25)
[2016-09-17] MEDS: PRIMIDONE 250 MG TABLET PO SCH ×2 (08:54→20:25)
[2016-09-17 09:14] LABS: SPECIMEN SOURCE Urine (.)
[2016-09-17 09:17] LABS: BASO # 0.1 x10^3/uL (0.0-0.2); BASO % 1 % (0-3); EOS % 2 % (0-3); HEMATOCRIT 35.2 % (39.0-53.0); HEMOGLOBIN 11.7 g/dL (13.0-17.5); LYMPH # 2.3 x10^3/uL (1.0-4.8); LYMPH % 27 % (24-48); MEAN CORPUSCULAR HEMOGLOBIN 30 pg (25-35); MEAN CORPUSCULAR HGB CONC 33 g/dL (31-37); MEAN CORPUSCULAR VOLUME 90 fL (79-100); MONO % 7 % (0-9); NEUT % 64 % (31-73); PLATELET COUNT 204 x10^3/uL (140-400); RED CELL DISTRIBUTION WIDTH 13.6 % (11.5-14.5); WHITE BLOOD COUNT 8.6 x10^3/uL (4.0-11.0)
[2016-09-17 11:00] VITALS: BP 140/90
--- NOTE | 2016-09-17 12:31 | PDOC ---
PROGRESS NOTES Chief Complaint Chief Complaint cc: sob A/P 1. Acute respiratory failure present on admission. Possible differential infectious versus inflammatory process.: on Levaquin and iv solumedol, PRN nebulizations, clinically improving, labs better. 2. Possible acute bronchitis. 3. 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 Obesity. BMI is 37.0. 5. Mild leukocytosis. 6. Physical debility. Vitals Vitals Vital Signs Date Time Temp Pulse Resp B/P Pulse Ox O2 Delivery O2 Flow Rate FiO2 09/17/16 11:02 97 Nasal Cannula 2.0 09/17/16 11:00 96.5 55 20 140/90 96.5 Physical Exam General: Alert, Oriented X3 Heart: Normal S1, Normal S2 Lungs: Clear, Other (a few end exp wheezing, better air movement) Abdomen: Normal bowel sounds Labs LABS Laboratory Tests Test 09/17/16 09:00 White Blood Count 8.6x10^3/uL (4.0-11.0) Red Blood Count 3.90x10^6/uL (4.30-5.70) Hemoglobin 11.7g/dL (13.0-17.5) Hematocrit 35.2% (39.0-53.0) Mean Corpuscular Volume 90fL (79-100) Mean Corpuscular Hemoglobin 30pg (25-35) Mean Corpuscular Hemoglobin Concent 33g/dL (31-37) Red Cell Distribution Width 13.6% (11.5-14.5) Platelet Count 204x10^3/uL (140-400) Neutrophils (%) (Auto) 64% (31-73) Lymphocytes (%) (Auto) 27% (24-48) Monocytes (%) (Auto) 7% (0-9) Eosinophils (%) (Auto) 2% (0-3) Basophils (%) (Auto) 1% (0-3) Neutrophils # (Auto) 5.5x10^3uL (1.8-7.7) Lymphocytes # (Auto) 2.3x10^3/uL (1.0-4.8) Monocytes # (Auto) 0.6x10^3/uL (0.0-1.1) Eosinophils # (Auto) 0.2x10^3/uL (0.0-0.7) Basophils # (Auto) 0.1x10^3/uL (0.0-0.2) Assessment and Plan Assessmemt and Plan Problems Medical Problems: (1) Community acquired pneumonia Status: Acute (2) Steroid dependent Status: Acute Problems: Comment Review of Relevant I have reviewed the following items sujit (where applicable) has been applied. Labs Laboratory Tests Test 09/16/16 07:47 09/16/16 07:55 09/16/16 08:25 09/17/16 09:00 White Blood Count 12.3x10^3/uL (4.0-11.0) 8.6x10^3/uL (4.0-11.0) Red Blood Count 3.89x10^6/uL (4.30-5.70) 3.90x10^6/uL (4.30-5.70) Hemoglobin 11.5g/dL (13.0-17.5) 11.7g/dL (13.0-17.5) Hematocrit 35.8% (39.0-53.0) 35.2% (39.0-53.0) Mean Corpuscular Volume 92fL (79-100) 90fL (79-100) Mean Corpuscular Hemoglobin 30pg (25-35) 30pg (25-35) Mean Corpuscular Hemoglobin Concent 32g/dL (31-37) 33g/dL (31-37) Red Cell Distribution Width 13.6% (11.5-14.5) 13.6% (11.5-14.5) Platelet Count 203x10^3/uL (140-400) 204x10^3/uL (140-400) Neutrophils (%) (Auto) 65% (31-73) 64% (31-73) Lymphocytes (%) (Auto) 23% (24-48) 27% (24-48) Monocytes (%) (Auto) 10% (0-9) 7% (0-9) Eosinophils (%) (Auto) 1% (0-3) 2% (0-3) Basophils (%) (Auto) 0% (0-3) 1% (0-3) Neutrophils # (Auto) 8.0x10^3uL (1.8-7.7) 5.5x10^3uL (1.8-7.7) Lymphocytes # (Auto) 2.9x10^3/uL (1.0-4.8) 2.3x10^3/uL (1.0-4.8) Monocytes # (Auto) 1.3x10^3/uL (0.0-1.1) 0.6x10^3/uL (0.0-1.1) Eosinophils # (Auto) 0.1x10^3/uL (0.0-0.7) 0.2x10^3/uL (0.0-0.7) Basophils # (Auto) 0.1x10^3/uL (0.0-0.2) 0.1x10^3/uL (0.0-0.2) Sodium Level 136mmol/L (136-145) Potassium Level 4.2mmol/L (3.5-5.1) Chloride Level 98mmol/L (98-107) Carbon Dioxide Level 31mmol/L (21-32) Anion Gap 7 (6-14) Blood Urea Nitrogen 19mg/dL (8-26) Creatinine 1.0mg/dL (0.7-1.3) Estimated GFR (Cockcroft-Gault) 75.0 BUN/Creatinine Ratio 19 (6-20) Glucose Level 95mg/dL (70-99) Lactic Acid Level 1.4mmol/L (0.4-2.0) Calcium Level 8.7mg/dL (8.5-10.1) Total Bilirubin 0.3mg/dL (0.2-1.0) Aspartate Amino Transf (AST/SGOT) 20U/L (15-37) Alanine Aminotransferase (ALT/SGPT) 31U/L (16-63) Alkaline Phosphatase 54U/L (46-116) Creatine Kinase 28U/L (39-308) Creatine Kinase MB (Mass) < 0.5ng/mL (0.0-3.6) Creatine Kinase MB Relative Index % (0-4) Troponin I Quantitative < 0.017ng/mL (0.000-0.055) MT-Hef-K-Type Natriuretic Peptide 2190pg/mL (0-124) Total Protein 7.4g/dL (6.4-8.2) Albumin 3.0g/dL (3.4-5.0) Albumin/Globulin Ratio 0.7 (1.0-1.7) Influenza Type A Antigen Negative (NEGATIVE) Influenza Type B Antigen Negative (NEGATIVE) Urine Collection Type Void Urine Color Yellow Urine Clarity Clear Urine pH 6.5 Urine Specific [place] 1.020 Urine Protein Negativemg/dL (NEG-TRACE) Urine Glucose (UA) Negativemg/dL (NEG) Urine Ketones (Stick) Negativemg/dL (NEG) Urine Blood Small (NEG) Urine Nitrite Negative (NEG) Urine Bilirubin Negative (NEG) Urine Urobilinogen Dipstick 1.0mg/dL (0.2 mg/dL) Urine Leukocyte Esterase Trace (NEG) Urine RBC 3-5/HPF (0-2) Urine WBC Occ/HPF (0-4) Urine Bacteria 0/HPF (0-FEW) Body Fluid Culture (LAB) (.) Urine Legionella Antigen Negative (Negative) Streptococcus pneumoniae Antigen Negative (Negative) Organism Identification (LAB) (.) LAINEY Specimen Source Urine (.) Laboratory Tests Test 09/17/16 09:00 White Blood Count 8.6x10^3/uL (4.0-11.0) Red Blood Count 3.90x10^6/uL (4.30-5.70) Hemoglobin 11.7g/dL (13.0-17.5) Hematocrit 35.2% (39.0-53.0) Mean Corpuscular Volume 90fL (79-100) Mean Corpuscular Hemoglobin 30pg (25-35) Mean Corpuscular Hemoglobin Concent 33g/dL (31-37) Red Cell Distribution Width 13.6% (11.5-14.5) Platelet Count 204x10^3/uL (140-400) Neutrophils (%) (Auto) 64% (31-73) Lymphocytes (%) (Auto) 27% (24-48) Monocytes (%) (Auto) 7% (0-9) Eosinophils (%) (Auto) 2% (0-3) Basophils (%) (Auto) 1% (0-3) Neutrophils # (Auto) 5.5x10^3uL (1.8-7.7) Lymphocytes # (Auto) 2.3x10^3/uL (1.0-4.8) Monocytes # (Auto) 0.6x10^3/uL (0.0-1.1) Eosinophils # (Auto) 0.2x10^3/uL (0.0-0.7) Basophils # (Auto) 0.1x10^3/uL (0.0-0.2) Microbiology 09/16/16 Urine Culture - Preliminary, Resulted 09/16/16 Urine Culture Result 1 (LAINEY) - Preliminary, Resulted Medications Current Medications Sodium Chloride (Iv Sodium Chloride 0.9% 1000ml Bag) 1,000 ml @ 1,000 mls/hr Q1H IV Last administered on 09/16/16 07:53; Start 09/16/16 at 07:44; Stop at 07:57; Status DC Albuterol/ Ipratropium 3 ml 3 ml 1X ONCE NEB Last administered on 09/16/16 08 :02; Start 09/16/16 at 07:45; Stop 09/16/16 at 07:47; Status DC Sodium Chloride (Iv Sodium Chloride 0.9% 1000ml Bag) 1,000 ml @ 100 mls/hr Q10H IV Last administered on 09/16/16 23:00; Start 09/16/16 at 07:56 Iohexol (Omnipaque 300 Mg/ml) 75 ml 1X ONCE IV Last administered on 09/16/16 09:22; Start 09/16/16 at 09:15; Stop 09/16/16 at 09:16; Status DC Info 1 each 1 each PRN DAILY PRN MC SEE COMMENTS; Start 09/16/16 at 09:15; Stop 09/18/16 at 09:14 Levofloxacin/ Dextrose (LEVAQUIN 750mg PREMIX) 150 ml @ 100 mls/hr Q24H IV Last administered on 09/17/16 12:27; Start 09/16/16 at 12:00 Albuterol/ Ipratropium (Duoneb) 3 ml RTQID NEB Last administered on 09/17/16 11:02; Start 09/16/16 at 12:00 Budesonide (Pulmicort) 0.5 mg RTBID NEB Last administered on 09/17/16 08:24; Start 09/16/16 at 12:00 Methylprednisolone Sodium Succinate (Solu-Medrol 40mg Vial) 40 mg Q8HRS IV ; Start 09/16/16 at 14:00; Stop 09/16/16 at 14:00; Status DC Cyclobenzaprine HCl (Flexeril) 10 mg PRN TID PRN PO MUSCLE SPASMS Last administered on 09/17/16 08:53; Start 09/16/16 at 13:30 Divalproex Sodium (Depakote Er) 500 mg BID PO Last administered on 09/17/16 08 :52; Start 09/16/16 at 14:00 Docusate Sodium (Colace) 100 mg PRN BID PRN PO CONSTIPATION Last administered on 09/17/16 09:00; Start 09/16/16 at 13:30 Hydromorphone HCl (Dilaudid) 8 mg PRN Q6HRS PRN PO PAIN Last administered on 09:00; Start 09/16/16 at 13:30 Oxycodone/ Acetaminophen (Percocet 10/325) 1 tab PRN Q4HRS PRN PO PAIN Last administered on 09/17/16 07:49; Start 09/16/16 at 13:30 Prednisone (Prednisone) 20 mg DAILY PO Last administered on 09/16/16 14:52; Start 09/16/16 at 14:00; Stop 09/17/16 at 07:48; Status DC Primidone (Mysoline) 250 mg BID PO Last administered on 09/17/16 08:54; Start 09/16/16 at 14:30 Primidone (Mysoline) 250 mg BID PO ; Start 09/16/16 at 21:00; Status UNV Sennosides (Senna) 8.6 mg PRN DAILY PRN PO CONSTIPATION Last administered on 09:00; Start 09/16/16 at 13:30 Fluvoxamine Maleate (Luvox) 300 mg DAILY PO Last administered on 09/17/16 08: 52; Start 09/17/16 at 09:00 Fish Oil (Fish Oil) 1,000 mg TID PO Last administered on 09/17/16 08:52; Start 09/16/16 at 21:00 Propranolol HCl (Inderal) 20 mg BID PO Last administered on 09/17/16 08:53; Start 09/16/16 at 21:00 Vitamin E 200 unit DAILY PO Last administered on 09/17/16 08:52; Start at 09:00 Enoxaparin Sodium (Lovenox 40mg Syringe) 40 mg DAILY16 SQ Last administered on 09/16/16 17:06; Start 09/16/16 at 16:00 Methylprednisolone Sodium Succinate (Solu-Medrol 40mg Vial) 40 mg Q12HR IV Last administered on 09/17/16 08:51; Start 09/17/16 at 09:00 Active Scripts Active Reported Senna (Sennosides) 8.6 Mg Tablet 8.6 Mg PO PRN Colace (Docusate Sodium) 100 Mg Capsule 1 Cap PO BID PRN Propranolol Hcl 20 Mg Tablet 1 Tab PO BID Fluvoxamine Maleate 100 Mg Tablet 300 Mg PO DAILY06 Depakote Er (Divalproex Sodium) 500 Mg Tab.er.24h 1 Tab PO BID Primidone 250 Mg Tablet 250 BID Plaquenil (Hydroxychloroquine Sulfate) 200 Mg Tablet 200 Mg PO BID Prednisone 20 Mg Tablet 20 Mg PO DAILY Percocet 10-325 Mg Tablet (Oxycodone/Acetaminophen) 1 Each Tablet 1 Tab PO Q4- 6HRS Cyclobenzaprine Hcl 10 Mg Tablet 10 Mg PO TID PRN Dilaudid (Hydromorphone Hcl) 4 Mg Tablet 8 Mg PO PRN Q6HRS PRN Vitamin E 1,000 Unit Capsule 1,000 Unit PO DAILY Mysoline (Primidone) 250 Mg Tablet 250 Mg PO BID [place] 3 1,000 Mg Softgel ([place]-3 Fatty Acids/Fish Oil) 1 Each Capsule 1 Each PO TID Vitals/I & O Vital Sign - Last 24 Hours 09/16/16 09/16/16 09/16/16 09/16/16 15:00 15:42 17:12 19:57 Temp 98.2 98.1 98.2 98.1 Pulse 65 64 Resp 20 18 B/P 133/90 143/92 Pulse Ox 96 97 94 O2 Delivery Nasal Cannula Nasal Cannula Nasal Cannula Nasal Cannula O2 Flow Rate 2.0 2.0 2.0 2.0 09/16/16 09/16/16 09/16/16 09/16/16 20:00 20:24 21:00 23:11 Temp 98.1 98.1 Pulse 50 60 Resp 18 B/P 148/84 Pulse Ox 97 98 O2 Delivery Nasal Cannula Nasal Cannula Nasal Cannula O2 Flow Rate 2.0 2.0 2.0 09/17/16 09/17/16 09/17/16 09/17/16 01:41 02:41 03:52 07:00 Temp 97.7 98.0 97.7 98.0 Pulse 67 68 Resp 18 18 B/P 141/89 158/110 Pulse Ox 98 98 97 97 O2 Delivery Nasal Cannula Nasal Cannula Nasal Cannula Nasal Cannula O2 Flow Rate 2.0 2.0 2.0 2.0 09/17/16 09/17/16 09/17/16 09/17/16 08:00 08:27 08:53 11:00 Temp 96.5 96.5 Pulse 68 55 Resp 20 B/P 158/110 140/90 Pulse Ox 100 98 O2 Delivery Nasal Cannula Nasal Cannula Nasal Cannula O2 Flow Rate 2.0 2.0 2.0 09/17/16 11:02 Pulse Ox 97 O2 Delivery Nasal Cannula O2 Flow Rate 2.0 Intake and Output 09/16/16 09/16/16 09/17/16 14:59 22:59 06:59 Intake Total 800 ml 100 ml Output Total 950 ml 1875 ml Balance 800 ml -850 ml -1875 ml JOVANA CISNEROS MD Sep 17, 2016 12:31
[2016-09-17] MEDS: IV NORMAL SALINE 1000ML BAG 1,000 ML IV SCH ×3 (13:56→23:56)
[2016-09-17 15:00] VITALS: BP 124/78
[2016-09-17] MEDS: ENOXAPARIN 40 MG/0.4 ML SYRINGE. SQ SCH (15:51)
[2016-09-17 19:15] VITALS: BP 146/84
[2016-09-17 23:15] VITALS: BP 173/96
[2016-09-18] MEDS: OXYCODONE/APAP 10/325 TABLET. PO PRN ×2 (01:31→08:02)
[2016-09-18 03:15] VITALS: BP 157/93
[2016-09-18] MEDS: IV NORMAL SALINE 1000ML BAG 1,000 ML IV SCH (06:22)
[2016-09-18 07:00] VITALS: BP 144/92
[2016-09-18] MEDS: IPRATRPIUM/ALBUTEROL 0.5/2.5MG 3 ML NEBU. NEB SCH ×2 (07:54→12:08)
[2016-09-18] MEDS: BUDESONIDE 0.5 MG/2 ML NEBU. NEB SCH (07:55)
[2016-09-18] MEDS: PRIMIDONE 250 MG TABLET PO SCH (08:01)
[2016-09-18] MEDS: FLUVOXAMINE MALEATE 25 MG PO SCH (08:01)
[2016-09-18] MEDS: PROPRANOLOL 10 MG TABLET. PO SCH (08:01)
[2016-09-18] MEDS: OMEGA-3 FATTY ACIDS/FISH OIL 1,000 MG CAPSULE. PO SCH ×2 (08:02→13:04)
[2016-09-18] MEDS: DIVALPROEX EXTENDED RELEASE 500 MG TAB.ER.24H. PO SCH (08:02)
[2016-09-18] MEDS: VITAMIN E 200 UNIT CAPSULE. PO SCH (08:02)
[2016-09-18] MEDS: methylPREDNISolone SOD SUCC PF 40 MG/ML VIAL. IV SCH (08:02)
[2016-09-18 11:00] VITALS: BP 149/88
[2016-09-18] MEDS ORDERED: LEVO500T38 PO (11:35)
--- NOTE | 2016-09-18 11:38 | PDOC3 ---
Discharge Summary Visit Information Date of Admission: Sep 16, 2016 Date of Discharge: Sep 18, 2016 Admitting Diagnosis Comment: 1. Acute respiratory failure present on admission. Possible differential infectious versus inflammatory process.: on Levaquin and iv solumedol, PRN nebulizations, clinically improving, labs better. 2. Possible acute bronchitis. 3. 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 Obesity. BMI is 37.0. 5. Mild leukocytosis. 6. Physical debility. Final Diagnosis Problems Medical Problems: (1) CAP (community acquired pneumonia) Status: Acute (2) Community acquired pneumonia Status: Acute (3) Steroid dependent Status: Acute Brief Hospital Course Allergies Allergies Coded Allergies Type Severity Reaction Last Updated Verified No Known Allergies Allergy Unknown 10/27/13 Yes Vital Signs Vital Signs Date Time Temp Pulse Resp B/P Pulse Ox O2 Delivery O2 Flow Rate FiO2 09/18/16 11:00 97.7 58 20 149/88 95 Nasal Cannula 2.0 97.7 Lab Results Laboratory Tests Test 09/17/16 09:00 White Blood Count 8.6x10^3/uL (4.0-11.0) Red Blood Count 3.90x10^6/uL (4.30-5.70) Hemoglobin 11.7g/dL (13.0-17.5) Hematocrit 35.2% (39.0-53.0) Mean Corpuscular Volume 90fL (79-100) Mean Corpuscular Hemoglobin 30pg (25-35) Mean Corpuscular Hemoglobin Concent 33g/dL (31-37) Red Cell Distribution Width 13.6% (11.5-14.5) Platelet Count 204x10^3/uL (140-400) Neutrophils (%) (Auto) 64% (31-73) Lymphocytes (%) (Auto) 27% (24-48) Monocytes (%) (Auto) 7% (0-9) Eosinophils (%) (Auto) 2% (0-3) Basophils (%) (Auto) 1% (0-3) Neutrophils # (Auto) 5.5x10^3uL (1.8-7.7) Lymphocytes # (Auto) 2.3x10^3/uL (1.0-4.8) Monocytes # (Auto) 0.6x10^3/uL (0.0-1.1) Eosinophils # (Auto) 0.2x10^3/uL (0.0-0.7) Basophils # (Auto) 0.1x10^3/uL (0.0-0.2) Brief Hospital Course Mr. Fatima is a 66 old male admitted for 2 MN for acute bronchitis , possibly some CAP in an immunocompromised (on biologics for rheumatologic condition),. Legionella and strep pneumo antigen neg, CO managed with pulmo, On levaquin, NO fevers, no white ct, Did well with PT.OT, HAs family at home Dc home today MAR done Rx levaquin, medrol dose pack Pt seen and examined Dc 31 mins > 50% counselling Proc: CTA Discharge Information Condition at Discharge: Improved, Stable Disposition/Orders: D/C to Home Scheduled Divalproex Sodium (Depakote Er) 1 TAB PO BID (Reported) Fluvoxamine Maleate (Fluvoxamine Maleate) 300 MG PO DAILY06 (Reported) Hydroxychloroquine Sulfate (Plaquenil) 200 MG PO BID (Reported) [place]-3 Fatty Acids/Fish Oil ([place] 3 1,000 Mg Softgel) 1 EACH PO TID (Reported ) Oxycodone/Apap 10-325 (Percocet 10-325 Mg Tablet) 1 TAB PO Q4-6HRS (Reported) Prednisone (Prednisone) 20 MG PO DAILY (Reported) Primidone (Mysoline) 250 MG PO BID (Reported) Primidone (Primidone) 250 BID (Reported) Propranolol Hcl (Propranolol Hcl) 1 TAB PO BID (Reported) Vitamin E (Vitamin E) 1,000 UNIT PO DAILY (Reported) Scheduled PRN Cyclobenzaprine Hcl (Cyclobenzaprine Hcl) 10 MG PO TID PRN PRN MUSCLE SPASMS ( Reported) Docusate Sodium (Colace) 1 CAP PO BID PRN PRN CONSTIPATION (Reported) Hydromorphone Hcl (Dilaudid) 8 MG PO PRN Q6HRS PRN PRN PAIN (Reported) Sennosides (Senna) 8.6 MG PO PRN CONSTIPATION (Reported) Discontinued Medications Divalproex Sodium (Depakote Er) 500 MG PO BID (Reported) Fluvoxamine Maleate (Fluvoxamine Maleate) 100 MG PO TID (Reported) Oxycodone Hcl/Acetaminophen (Oxycodone-Acetaminophen 10-325) 10 (Reported) TERMULO,PEARL Y MD Sep 18, 2016 11:38
== END 2016-09-18 14:04 | disposition home or self-care (01) | DRG 193 ==
LOC: ER 07:29 → 6 SOUTH 09:00
PROVIDERS: ADMIT Internal Medicine; ATTEND Internal Medicine
DX: J18.9 Pneumonia, unspecified organism (principal); J96.00 Acute respiratory failure, unspecified whether with hypoxia or hypercapnia; J45.901 Unspecified asthma with (acute) exacerbation; J20.9 Acute bronchitis, unspecified; D89.9 Disorder involving the immune mechanism, unspecified; E66.9 Obesity, unspecified; G47.33 Obstructive sleep apnea (adult) (pediatric); D64.9 Anemia, unspecified; K59.00 Constipation, unspecified; F31.9 Bipolar disorder, unspecified; Z90.49 Acquired absence of other specified parts of digestive tract; Z79.52 Long term (current) use of systemic steroids; Z86.711 Personal history of pulmonary embolism; Z68.37 Body mass index [BMI] 37.0-37.9, adult
CPT/HCPCS: 36415; 71010; 71260; 80053; 81001; 82553; 83605; 83880; 84484; 85027; 87086; 87449; 87804; 93005; 93306; 94250; 94640; 94760; J1650; J1956; J2920; J7030; J7512; J7620; Q9967; 99285-25

== ENCOUNTER 2016-10-04 10:30 | Emergency (ER) | payer OTHER ==
[~2016-10-04] VITALS: Ht 188 cm; Wt 122.5 kg
[~2016-10-04 10:30] MED LIST changes: +DOCU-27 PO; +LEVO500T38 PO; +OXYC1TAB9; +PRIM250T; +PROP20TA PO; +SENN8.6T3 PO
--- NOTE | 2016-10-04 11:40 | PHYS DOC ---
Past Medical History Past Medical History: Bipolar, Other Additional Past Medical Histor: low back pain, tremors, "unidentified autoimmune disorder" Past Surgical History: Cholecystectomy, Other Additional Past Surgical Histo: PERICARDECTOMY , lumbar surgery Alcohol Use: None Drug Use: None Adult General Chief Complaint Chief Complaint: MECHANICAL FALL HPI HPI Patient is a 66 year old male presents the emergency Department today with complaint of low back pain and posterior right hip pain secondary to a fall off of a ladder approximately 3 days ago. Patient states he was approximate 4 feet above the ground when he had a dizzy spell and fell. Patient reports that dizzy spells are chronic and recurring for him. He denies chest pain, palpitations during the time of the fall. He states that he did not pass out. Patient states he did not strike his head or lose consciousness. Patient states that this low back pain or right hip pain have not been manageable with atypical pain medication that he takes at home. He states that he has been able to partially bear weight and walk. He denies radiation of the pain. He denies saddle anesthesia or incontinence of urine or bowel. Patient describes having either a vertebroplasty or some type of disc enhancement in his lower back within the past year. Review of Systems Review of Systems Constitutional: Denies fever or chills [] Eyes: Denies change in visual acuity, redness, or eye pain [] HENT: Denies nasal congestion or sore throat [] Respiratory: Denies cough or shortness of breath [] Cardiovascular: No additional information not addressed in HPI [] GI: Denies abdominal pain, nausea, vomiting, bloody stools or diarrhea [] : Denies dysuria or hematuria [] Musculoskeletal: Denies back pain or joint pain [] Integument: Denies rash or skin lesions [] Neurologic: Denies headache, focal weakness or sensory changes [] Endocrine: Denies polyuria or polydipsia [] Current Medications Current Medications Current Medications Medications (Trade) Dose Ordered Sig/Ayanna Start Time Stop Time Status Last Admin Dose Admin Diazepam (Valium) 5 mg 1X ONCE 10/04/16 11:45 10/04/16 11:46 DC 10/04/16 11:49 5 MG Fentanyl Citrate (Fentanyl 2ml Vial) 75 mcg 1X ONCE 10/04/16 11:45 10/04/16 11:46 DC 10/04/16 11:50 75 MCG Allergies Allergies Allergies Coded Allergies Type Severity Reaction Last Updated Verified No Known Allergies Allergy Unknown 10/27/13 Yes Physical Exam Physical Exam Constitutional: Well developed, well nourished, mild distress, non-toxic appearance. Patient states that he is having pain in his right lower back and posterior right hip. HENT: Normocephalic, atraumatic, bilateral external ears normal, oropharynx moist, no oral exudates, nose normal. [] Eyes: PERRLA, EOMI, conjunctiva normal, no discharge. [] Neck: Normal range of motion, no tenderness, supple, no stridor. Cardiovascular:Heart rate regular rhythm, no murmur [] Lungs & Thorax: Bilateral breath sounds clear to auscultation [] Abdomen: Bowel sounds normal, soft, no tenderness, no masses, no pulsatile masses. [] Skin: Overlying contusion in the right paraspinous region of patient's back and posterior right hip. Back: No tenderness, no CVA tenderness. [] Extremities: There is tenderness to palpation in the posterior lateral aspect of right hip extended into the left SI joint region. There is no palpable defect , deformity, instability or crepitus. Patient complains of pain with passive range of motion. Right lower extremity itself is warm and dry without any evidence of injury and nontender to palpation. Neurologic: Alert and oriented X 3, normal motor function, normal sensory function, no focal deficits noted. [] Psychologic: Affect normal, judgement normal, mood normal. [] Current Patient Data Vital Signs Vital Signs Date Time Temp Pulse Resp B/P Pulse Ox O2 Delivery O2 Flow Rate FiO2 10/04/16 13:27 55 16 121/68 94 Nasal Cannula 2 10/04/16 10:45 98.3 98.3 Lab Values Laboratory Tests Test 10/04/16 11:40 White Blood Count 12.4x10^3/uL (4.0-11.0) H Red Blood Count 4.06x10^6/uL (4.30-5.70) L Hemoglobin 12.3g/dL (13.0-17.5) L Hematocrit 38.0% (39.0-53.0) L Mean Corpuscular Volume 94fL (79-100) Mean Corpuscular Hemoglobin 30pg (25-35) Mean Corpuscular Hemoglobin Concent 32g/dL (31-37) Red Cell Distribution Width 13.7% (11.5-14.5) Platelet Count 237x10^3/uL (140-400) Prothrombin Time 14.1SEC (11.7-14.0) H Prothrombin Time INR 1.2 (0.8-1.1) H Sodium Level 137mmol/L (136-145) Potassium Level 4.3mmol/L (3.5-5.1) Chloride Level 97mmol/L (98-107) L Carbon Dioxide Level 35mmol/L (21-32) H Anion Gap 5 (6-14) L Blood Urea Nitrogen 16mg/dL (8-26) Creatinine 1.0mg/dL (0.7-1.3) Estimated GFR (Cockcroft-Gault) 75.0 BUN/Creatinine Ratio 16 (6-20) Glucose Level 98mg/dL (70-99) Calcium Level 8.4mg/dL (8.5-10.1) L Total Bilirubin 0.3mg/dL (0.2-1.0) Aspartate Amino Transferase (AST) 23U/L (15-37) Alanine Aminotransferase (ALT) 39U/L (16-63) Alkaline Phosphatase 51U/L (46-116) Total Protein 7.3g/dL (6.4-8.2) Albumin 2.8g/dL (3.4-5.0) L Albumin/Globulin Ratio 0.6 (1.0-1.7) L Laboratory Tests 10/04/16 11:40 Laboratory Tests 10/04/16 11:40 EKG EKG [] Radiology/Procedures Radiology/Procedures [facility] [address] [place] [address] IMAGING REPORT Signed PATIENT: KENROY MCKINNEY ACCOUNT: [id number] : 1950 LOCATION: ER AGE: 66 SEX: M EXAM STATUS: REG ER ORD. PHYSICIAN: ALTON LAZCANO REASON: PROCEDURE: CT LUMBAR SPINE RECONSTRUCTION CT of the lumbar spine without contrast, 10/04/2016: History: Fall, pain The study was performed in conjunction with the CT abdomen and pelvis exam. Multiplanar reconstructions of the lumbar spine were produced. Comparison is made to a study from 02/09/2016. There is a nondisplaced fracture of the right transverse process at L1 which is new. There is an old vertebral compression fracture at T12. There has been an interval vertebroplasty at that level with a small amount of cement extending into the T11-T12 disc space. Slight posterior protrusion of the posterior superior aspect of the vertebral body into the anterior aspect of the spinal canal is unchanged. No additional fracture is identified. There are moderate degenerative changes involving multiple facet joints bilaterally. There are mild posterior disc bulges and marginal spurs, most prominent at L5-S1. There is moderate associated bilateral foraminal encroachment at L4-5 and L5-S1. No high-grade central spinal stenosis is evident. IMPRESSION: 1. Moderate multilevel degenerative change. 2. Old T12 vertebral compression fracture with vertebroplasty change. 3. New nondisplaced fracture of the right transverse process at L1. DICTATED and SIGNED BY: ELY ALLAN MD DATE: 10/04/16 1245 CC: ALTON LAZCANO; ANUEL MAYER MD; ANUEL MCPHERSON MD ~ [address] [id number] IMAGING REPORT Signed PATIENT: KENROY MCKINNEY ACCOUNT: [id number] : 1950 LOCATION: ER AGE: 66 SEX: M EXAM STATUS: REG ER ORD. PHYSICIAN: ALTON LAZCANO REASON: fall, low back and right hip pain PROCEDURE: CT ABDOMEN PELVIS WO CONTRAST Indication pain. Status post falling off a ladder. Axial images of the abdomen and pelvis were obtained. The study is limited. No IV or gastrointestinal contrast was administered. The lumbar spine was also evaluated which is the subject of a separate dictation. There is mild chronic pleural-parenchymal changes at the lung bases. A definite significant finding in either lung base is not seen. The liver and spleen appear grossly normal. Clips are seen in the gallbladder fossa. There are a few retrocrural lymph nodes. These are probably incidental. No pancreatic adrenal or significant renal pathology is seen. An acute finding in the abdomen is not seen. No acute finding is apparent in the pelvis. IMPRESSION: No acute soft tissue finding seen in the abdomen or pelvis PQRS Compliance Statement: One or more of the following individualized dose reduction techniques were utilized for this examination: 1. Automated exposure control 2. Adjustment of the mA and/or kV according to patient size 3. Use of iterative reconstruction technique DICTATED and SIGNED BY: KAIDEN MIDDLETON MD DATE: 10/04/16 7920 CC: ALTON LAZCANO; ANUEL MAYER MD; ANUEL MCPHERSON MD ~ Course & Med Decision Making Course & Med Decision Making Patient has had an uneventful stay here in the emergency department and reports feeling much better. I discussed CT scan findings with patient and his , who is now at the bedside. Patient's states that patient has "plenty of pain medication and muscle relaxers at home." I advised patient and to call Dr. Luevano's office this afternoon or tomorrow to schedule follow-up appointment. This is the physician that performed the vertebral plasty and patient's back. Dragon Disclaimer Dragon Disclaimer This electronic medical record was generated, in whole or in part, using a voice recognition dictation system. Departure Departure Impression: Primary Impression: Lumbar transverse process fracture Disposition: 01 HOME, SELF-CARE Condition: GOOD Referrals: ANUEL MAYER MD (PCP) Patient Instructions: Transverse Process Fracture Additional Instructions: 1. Take since as prescribed, including pain medication and muscle relaxer. 2. Call Dr. Luevano's office this afternoon or tomorrow to schedule follow-up appointment for reevaluation. 3. Review the discharge instructions provided for self-care and reasons to return to the emergency department. Problem Qualifiers Primary Impression: Lumbar transverse process fracture Encounter type: initial encounter Fracture type: closed Qualified Code: S32.008A - Other fracture of unspecified lumbar vertebra, initial encounter for closed fracture ALTON LAZCANO October 04, 2016 11:40 ANUEL MCPHEROSN MD October 04, 2016 15:10
[2016-10-04] MEDS ORDERED: fentaNYL PF VIAL 100 MCG/2 ML VIAL IV ONE (11:45)
[2016-10-04 12:05] LABS: CALCIUM 8.4 mg/dL (8.5-10.1); POTASSIUM 4.3 mmol/L (3.5-5.1)
[2016-10-04 12:10] LABS: ALBUMIN 2.8 g/dL (3.4-5.0); ALBUMIN/GLOBULIN RATIO 0.6 (1.0-1.7); TOTAL BILIRUBIN 0.3 mg/dL (0.2-1.0); TOTAL PROTEIN 7.3 g/dL (6.4-8.2)
[2016-10-04] MEDS ORDERED: VITA400C6 PO (12:12)
[2016-10-04 12:19] LABS: INR 1.2 (0.8-1.1); PROTHROMBIN TIME PATIENT 14.1 SEC (11.7-14.0)
[2016-10-04 12:20] LABS: HEMOGLOBIN 12.3 g/dL (13.0-17.5); RED BLOOD COUNT 4.06 x10^6/uL (4.30-5.70); RED CELL DISTRIBUTION WIDTH 13.7 % (11.5-14.5); WHITE BLOOD COUNT 12.4 x10^3/uL (4.0-11.0)
--- NOTE | 2016-10-04 12:59 | RAD ---
Indication pain. Status post falling off a ladder. Axial images of the abdomen and pelvis were obtained. The study is limited. No IV or gastrointestinal contrast was administered. The lumbar spine was also evaluated which is the subject of a separate dictation. There is mild chronic pleural-parenchymal changes at the lung bases. A definite significant finding in either lung base is not seen. The liver and spleen appear grossly normal. Clips are seen in the gallbladder fossa. There are a few retrocrural lymph nodes. These are probably incidental. No pancreatic adrenal or significant renal pathology is seen. An acute finding in the abdomen is not seen. No acute finding is apparent in the pelvis. IMPRESSION: No acute soft tissue finding seen in the abdomen or pelvis PQRS Compliance Statement: One or more of the following individualized dose reduction techniques were utilized for this examination: 1. Automated exposure control 2. Adjustment of the mA and/or kV according to patient size 3. Use of iterative reconstruction technique
--- NOTE | 2016-10-04 12:59 | RAD ---
CT of the lumbar spine without contrast, 10/04/2016: History: Fall, pain The study was performed in conjunction with the CT abdomen and pelvis exam. Multiplanar reconstructions of the lumbar spine were produced. Comparison is made to a study from 02/09/2016. There is a nondisplaced fracture of the right transverse process at L1 which is new. There is an old vertebral compression fracture at T12. There has been an interval vertebroplasty at that level with a small amount of cement extending into the T11-T12 disc space. Slight posterior protrusion of the posterior superior aspect of the vertebral body into the anterior aspect of the spinal canal is unchanged. No additional fracture is identified. There are moderate degenerative changes involving multiple facet joints bilaterally. There are mild posterior disc bulges and marginal spurs, most prominent at L5-S1. There is moderate associated bilateral foraminal encroachment at L4-5 and L5-S1. No high-grade central spinal stenosis is evident. IMPRESSION: 1. Moderate multilevel degenerative change. 2. Old T12 vertebral compression fracture with vertebroplasty change. 3. New nondisplaced fracture of the right transverse process at L1.
[2016-10-04 13:27] VITALS: BP 121/68
== END 2016-10-04 13:35 | disposition home or self-care (01) ==
LOC: ER 10:30
CPT/HCPCS: 36415; 74176; 80053; 85027; 85610; 96374; 96376; 99285; J3010; J3360

== ENCOUNTER → 2016-10-16 | Outpatient (CLI) | payer OTHER ==
[2016-10-04 13:27] VITALS: BP 121/68
[~2016-10-16] MED LIST changes: +VITA400C6 PO
--- NOTE | 2016-10-16 20:26 | PAIN ---
DATE OF SERVICE: 10/16/2016 PROGRESS NOTE FOR PAIN CLINIC DIAGNOSES: 1. Thoracic spondylosis with thoracic degenerative disk disease, thoracic herniated disk. 2. Myofascial pain. HISTORY OF PRESENT ILLNESS: The patient is a 66-year-old male, who returns for followup with medication management with both the oxycodone and hydromorphone. The patient reports he has been doing fairly well with this, being on very stable regimen; however, on 10/04/2016. He was climbing a ladder to change the ____ and lost his balance, fell off the ladder about a distance in total about 5 feet onto his back with significant pain in the mid and low back, but in the Emergency Department had a CT scan and it showed a nondisplaced fracture of the right transverse process at L1. No other acute fractures or other changes. He has significant pain, now increased in the mid and low back, since that time slightly to the right of midline, but getting better with time, but only very gradually. The patient is still taking prednisone 20 mg a day, which he decreased this to 10, but increased back after the injury and this has been taking care of a lot of the pain has still much worse with movement or rotational motion of the lumbar spine, bending, flexing, difficulty sleeping, but doing better again over the past week or so. The patient reports still pain, stabbing, sharp, constant, severe in the mid back and upper back as well as low back, rated as a 10 on a scale of 10 is worse with activity of 5 at least is a 5, currently today. The patient reports no new motor or sensory deficits, no new bowel or bladder incontinence or other complaints. PHYSICAL EXAMINATION: VITAL SIGNS: The patient's blood pressure is 113/73, pulse ____, respirations are 16, temperature 98.5 degrees Fahrenheit, height 6 feet 1 inch, weight is 275 pounds. GENERAL: The patient is awake, alert, oriented, appropriate, very pleasant demeanor. The patient accompanied by his spouse. HEENT: Shows normocephalic, atraumatic. Extraocular movements are intact, symmetrical. Oral cavity shows mucous membranes moist and pink. Dentition is intact. NECK: Shows anterior throat supple without palpable lymphadenopathy noted. Swallow reflex is symmetrical. CHEST: Shows normal on inspection. Breath sounds clear to auscultation bilaterally. HEART: Shows S1 and S2 clear. ABDOMEN: Obese, soft, nontender, nondistended. No palpable organomegaly. No rebound or guarding demonstrated. BACK: Shows spine grossly midline. Slight exaggeration of thoracic kyphosis and mild flattening of lumbar lordotic curvature other some moderate tenderness to palpation in the middle upper distribution, thoracic paraspinous muscle, but only very mildly without radiation low back shows some moderate tenderness on the right compared to the left in the paraspinous musculature in the upper lumbar spine consistent with the findings on CT scan of right-sided transverse fracture at L1 without any specific radiation. No severe pain with palpation. The patient does show some pain with extension as well as right lateral rotation. EXTREMITIES: Lower extremities show deep tendon reflexes 1+ in the patellar and tendo calcaneus tendons are equal. Motor exam is approximately 4 on a scale of 5, but symmetrical with dorsiflexion, extension, quadriceps and hamstring flexion and equal. Options were discussed with the patient and the patient's old chart was reviewed as his current medication regimen updated. Current review of systems updated today as well. We will refill the patient's oxycodone as well as hydromorphone with instructions, side effects to be aware of and again he has been on very stable regimen, has had appropriate K-TRACS reporting today and appropriate urinalysis today as well. The patient was given instructions as well as side effects to be aware of with the medication. We will follow up in approximately 2 months or sooner if necessary. ABBIE VALENCIA MD DR: JULIEN/sonam JOB#: [id number] / [id number]
== END | disposition home or self-care (01) ==
LOC: PNCL 11:08
PROVIDERS: ATTEND Anesthesiology
DX: M51.34 Other intervertebral disc degeneration, thoracic region (principal); M47.894 Other spondylosis, thoracic region; M51.24 Other intervertebral disc displacement, thoracic region; M79.1 Myalgia
CPT/HCPCS: G0463

== ENCOUNTER → 2016-12-11 | Outpatient (CLI) | payer OTHER ==
[~2016-12-11] MED LIST changes: +DOCU-109 PO; -DOCU-27 PO; -HYDR4TAB13 PO; +HYDR4TAB45 PO; -LEVO500T38 PO; +LEVO500T59 PO; -OXYC-250 PO; +OXYC-328 PO; -OXYC10TA32 PO; +OXYC10TA45 PO; +SENN-79 PO; -SENN8.6T3 PO
== END | disposition home or self-care (01) ==
LOC: PNCL 11:18
PROVIDERS: ATTEND Anesthesiology
DX: M51.34 Other intervertebral disc degeneration, thoracic region (principal); M51.24 Other intervertebral disc displacement, thoracic region; M47.894 Other spondylosis, thoracic region; M79.1 Myalgia
CPT/HCPCS: 99212

== ENCOUNTER → 2017-02-06 | Outpatient (CLI) | payer OTHER, MEDICARE ==
[2017-01-18 11:00] VITALS: BP 126/81
[~2017-02-06] MED LIST changes: +ATOR40TA59 PO; +BUPIVACAINE MPF 0.25% 10 ML VIAL. ONE; +HYDR8TAB29 PO; +LISI-338 PO; +methylPREDNISolone ACETATE 40 MG/ML VIAL. ONE
--- NOTE | 2017-02-06 23:46 | PAIN ---
DATE OF SERVICE: 02/06/2017 DIAGNOSES: 1. Thoracic spondylosis with thoracic degenerative disk disease, thoracic herniated disk. 2. Myofascial pain. HISTORY OF PRESENT ILLNESS: The patient is a 66-year-old male who returns for followup status post medication management with both oxycodone and hydromorphone. The patient reports he has been doing fairly well with this, ____ much better until last week when he was helping his switch out a drive belt on a riding lawnmower. The patient was lifting the mower on its side and reaching up inside to get the belt switched caused a significant pain and had a ripping sensation in his right low back. The patient reports that since that time, he has had a significant pain, has been very inactive since that time, again about a week ago, and has been almost no activity, has been using his riding scooter once again, electric wheelchair as opposed to ambulating when he can. The patient reports it is still painful. He has been putting some heat and ice on it, but this is not helping significantly and is to the right side of the low back, stabbing, severe, constant, unbearable and sharp; rates as a 10 on a scale of 10 at its worst, 7 at its least and is now a 9 on a scale of 10 today. The patient reports otherwise has been doing very well with the pain medications, has been on a very good regimen with about 75-80% improvement with the medication itself without significant side effects. PHYSICAL EXAMINATION: VITAL SIGNS: Show blood pressure of 122/76, pulse of 103, respirations 18, temperature 98.0 degrees Fahrenheit. Height is 6 feet. GENERAL: The patient is awake, alert, oriented, appropriate, is very pleasant demeanor. The patient is accompanied by his spouse. HEENT: Shows normocephalic, atraumatic. Extraocular movements are intact and symmetrical. Oral cavity, mucous membranes are moist and pink. Dentition is intact. NECK: Shows anterior throat supple. CHEST: Shows breath sounds clear to auscultation bilaterally. HEART: Shows S1 and S2 clear. ABDOMEN: Obese, soft, nontender, nondistended. BACK: The patient's back shows spine grossly in the midline. Thoracic paraspinous muscle shows some diffuse tenderness in the middle upper distribution, but only diffusely in the bilateral paraspinous musculature without radiation. Lumbar paraspinous muscle shows some extreme tenderness and very firm rope-like musculature in the lower lumbar distribution to the right of midline approximately 10 cm off the midline to the right just above the iliac crest, but more medial well above the sacroiliac region with no tenderness over the SI joints bilaterally. No tenderness over the left paraspinous musculature with palpation. Well-healed surgical scar is again appreciated in the midline in the lumbar distribution and pain is approximately 10 cm to the right of the upper aspect of the incisional scar. Very firm rope-like musculature consistent with trigger point muscle, very firm and tender but without radiation on palpation. MUSCULOSKELETAL: The patient's lower extremities showed deep tendon reflexes 1+ in the patellar and tendo-calcaneus tendons. Motor exam is intact with a 4/5 dorsiflexion and extension, but equal and symmetrical. Options were discussed with the patient and the patient's old chart was reviewed as his current medication regimen updated. Current review of systems updated today as well. We will proceed with trigger point injections of the right lumbar paraspinous musculature. Risks were discussed including, but not limited to bleeding, infection, possibility of intravascular injection sequelae, spread of local anesthetic and numbness, side effects of steroid medication, poor results regarding pain control. The patient understands and wishes to proceed. The patient will return to the clinic in approximately 2 months for a followup. He was given refill prescription of oxycodone as well as hydromorphone with instructions, side effects to be aware of with each. Also, encouraged the patient to increase his activity, also discussed pressure release techniques with the right lumbar paraspinous musculature as well as heat and ice application and stretching and increasing mobility as soon as tolerable. The patient understands and will start increasing activity as of today. The patient also counseled as to hydration status and diet and side effects to be aware of with the medication. The patient will follow up in approximately 2 months or sooner as necessary. DIAGNOSIS: Myofascial pain. PROCEDURE: Trigger point injections, right lumbar paraspinous musculature under sterile prep and drape using local anesthetic. Medication injected a total of 40 mg Depo-Medrol plus total of 2 mL of 0.25% bupivacaine after a negative aspiration. CONDITION AT DISCHARGE: Stable. The patient tolerated procedure well, had no complications. ABBIE VALENCIA MD DR: Young JOB#: [id number] / [id number]
== END | disposition home or self-care (01) ==
LOC: PNCL 14:28
PROVIDERS: ATTEND Anesthesiology
DX: M51.34 Other intervertebral disc degeneration, thoracic region (principal); M47.814 Spondylosis without myelopathy or radiculopathy, thoracic region; I10 Essential (primary) hypertension; Z87.39 Personal history of other diseases of the musculoskeletal system and connective tissue; Z86.69 Personal history of other diseases of the nervous system and sense organs; Z86.39 Personal history of other endocrine, nutritional and metabolic disease
CPT/HCPCS: 20552; J1030; J3490

== ENCOUNTER → 2017-05-30 | Outpatient (CLI) | payer OTHER, MEDICARE | END | disposition home or self-care (01) | LOC: PNCL 12:48 | DX: M51.34 Other intervertebral disc degeneration, thoracic region (principal); M51.24 Other intervertebral disc displacement, thoracic region; M47.894 Other spondylosis, thoracic region | CPT/HCPCS: 99212 ==

== ENCOUNTER → 2017-08-13 | Outpatient (CLI) | payer OTHER, MEDICARE | END | disposition home or self-care (01) | LOC: PNCL 12:37 | DX: M47.894 Other spondylosis, thoracic region (principal); M51.34 Other intervertebral disc degeneration, thoracic region; M51.24 Other intervertebral disc displacement, thoracic region; M79.1 Myalgia | CPT/HCPCS: 99212 ==

== ENCOUNTER → 2017-11-06 | Outpatient (CLI) | payer OTHER, MEDICARE | END | disposition home or self-care (01) | LOC: PNCL 13:15 | DX: M51.34 Other intervertebral disc degeneration, thoracic region (principal); M51.24 Other intervertebral disc displacement, thoracic region; M47.894 Other spondylosis, thoracic region; M79.1 Myalgia | CPT/HCPCS: 99212 ==

== ENCOUNTER 2018-01-05 06:46 | Emergency (ER) | payer OTHER, MEDICARE ==
[2018-01-05] MEDS: IOHEXOL 300 MG/ML 100ML VIAL. IV ×2 (07:30)
[2018-01-05] MEDS: MORPHINE SULFATE 4 MG/ML DISP.SYRIN. IV ×6 (07:41→09:19)
[2018-01-05] MEDS: IV NORMAL SALINE 500ML BAG 500 ML IV ×2 (07:42)
[2018-01-05] MEDS ORDERED: CONTRAST GIVEN. MC ×2 (07:45)
[2018-01-05 07:56] LABS: ADD MAN DIFF? NO; BASO # 0.1 x10^3/uL (0.0-0.2); BASO % 1 % (0-3); EOS # 0.1 x10^3/uL (0.0-0.7); EOS % 1 % (0-3); HEMATOCRIT 41.7 % (39.0-53.0); HEMOGLOBIN 13.8 g/dL (13.0-17.5); LYMPH # 2.7 x10^3/uL (1.0-4.8); LYMPH % 17 % (24-48); MEAN CORPUSCULAR HEMOGLOBIN 31 pg (25-35); MEAN CORPUSCULAR HGB CONC 33 g/dL (31-37); MEAN CORPUSCULAR VOLUME 94 fL (79-100); MONO # 1.1 x10^3/uL (0.0-1.1); MONO % 7 % (0-9); NEUT # 11.4 x10^3uL (1.8-7.7); NEUT % 74 % (31-73); PLATELET COUNT 231 x10^3/uL (140-400); RED BLOOD COUNT 4.44 x10^6/uL (4.30-5.70); RED CELL DISTRIBUTION WIDTH 13.5 % (11.5-14.5); WHITE BLOOD COUNT 15.4 x10^3/uL (4.0-11.0)
[2018-01-05 08:07] LABS: INR 1.1 (0.8-1.1); PROTHROMBIN TIME PATIENT 14.1 SEC (11.7-14.0)
[2018-01-05 08:10] LABS: ANION GAP 6 (6-14); BLOOD UREA NITROGEN 23 mg/dL (8-26); CALCIUM 8.4 mg/dL (8.5-10.1); CARBON DIOXIDE 29 mmol/L (21-32); CHLORIDE 100 mmol/L (98-107); GFR 74.8; GLUCOSE 124 mg/dL (70-99); POTASSIUM 3.7 mmol/L (3.5-5.1); SODIUM 135 mmol/L (136-145)
[2018-01-05 08:28] LABS: PARTIAL THROMBOPLASTIN TIME 22 SEC (24-38)
[2018-01-05 09:57] LABS: TROPONINI < 0.017 ng/mL (0.000-0.055)
== END 2018-01-05 10:15 | disposition home or self-care (01) ==
LOC: ER 06:46
DX: S42.011A Anterior displaced fracture of sternal end of right clavicle, initial encounter for closed fracture (principal); G89.29 Other chronic pain; F31.9 Bipolar disorder, unspecified; Z90.49 Acquired absence of other specified parts of digestive tract; Z98.890 Other specified postprocedural states; X58.XXXA Exposure to other specified factors, initial encounter; W10.8XXA Fall (on) (from) other stairs and steps, initial encounter; Y93.89 Activity, other specified; Y92.89 Other specified places as the place of occurrence of the external cause; Y99.8 Other external cause status
CPT/HCPCS: 36415; 70450; 71260; 72125; 73200; 74177; 80048; 84484; 85025; 85610; 85730; 96374; 96376; 99285-25; J2270; J7040; Q9967

== ENCOUNTER → 2018-01-29 | Outpatient (CLI) | payer OTHER, MEDICARE ==
[2018-01-05 07:24] VITALS: BP 139/102
[~2018-01-29] MED LIST changes: -BUPIVACAINE MPF 0.25% 10 ML VIAL. ONE; -HYDR200T PO; +HYDR200T71 PO; +OXYC-411; -OXYC1TAB9; -methylPREDNISolone ACETATE 40 MG/ML VIAL. ONE
--- NOTE | 2018-01-29 16:34 | PAIN ---
DATE OF SERVICE: 01/29/2018 DIAGNOSES: 1. Thoracic spondylosis with thoracic degenerative disk disease, thoracic herniated disk. 2. Myofascial pain. HISTORY OF PRESENT ILLNESS: The patient is a 67-year-old male who returns for followup status post medication management with both Percocet and hydromorphone. The patient reports he has been doing very well, has been on a very stable regimen, about 75% improvement overall and the pain in his upper mid back. The patient reports he had a fall several weeks ago, broke his right collar bone as he fell on the top of the stairs and fell, pretty much down about 7 stairs, hitting the wall with his right shoulder on the way down. The patient reports that pain had become much more controlled. He wore a sling for about a week, afterwards and now has full rotational motion of the shoulder without significant amount of pain in there. The patient reports the main pain is in his mid back, upper back, sharp, stabbing, constant, unbearable at times, worse with activity, better with sitting or lying down, does not awaken him from sleep every night, but does awake him from sleep, sometimes 4-6 hours after he is sleeping. The patient reports no new motor or sensory deficits, no side effects with medication. He reports he has been on a very stable regimen, feels that he is doing well and is functional to his liking and ability during the day as well as getting decent sleep at night with the medications without significant side effects. The patient rates his pain a 10 on a scale of 10 at its worst, 8 on average and 6 at its least and is a 6 today, and his shoulder again doing much better after the fall. PHYSICAL EXAMINATION: VITAL SIGNS: The patient's blood pressure 137/84, pulse 68, respirations are 18, temperature is 97.9 degrees Fahrenheit. Height is 6 feet and 1 inch. Weight is deferred as the patient in on an electric wheelchair. GENERAL: The patient is awake, alert, oriented, appropriate, very pleasant demeanor. HEENT: Head shows normocephalic, atraumatic. Extraocular movements are intact, symmetrical. Oral cavity, mucous membranes are moist and pink. Dentition is intact. NECK: Shows anterior throat supple without palpable lymphadenopathy noted. Swallow reflex is symmetrical. CHEST: Shows normal on inspection. Breath sounds clear to auscultation bilaterally, but distant. HEART: Shows S1, S2 clear. No murmurs auscultated. ABDOMEN: Obese, soft, nontender, nondistended. No palpable organomegaly is noted. BACK: Spine is grossly in the midline. Slight exaggeration of thoracic kyphosis, normal cervical lordotic curvature and some mild flattening of lumbar lordotic curvature. Thoracic paraspinous muscle shows symmetrical on inspection, with palpation shows some mild tenderness to moderate tenderness in the mid upper distribution of paraspinous muscles, but only diffusely without significant radiation. The patient does show good rotational motion with extension, flexion, lateral rotation right and left without significant increase in pain on exam today. EXTREMITIES: The patient's upper extremities show deep tendon reflexes 2+ in the biceps and triceps tendons. Manager Urology strength is strong with 5/5 ward nurse strength bilaterally. Peripheral pulses are 2+ radial distribution. Options were discussed with the patient. The patient's old chart was reviewed, as his current medication regimen updated. Current review of systems updated today as well. We will refill the patient's hydromorphone as well as oxycodone for 2-month prescription. The patient has had appropriate K-TRACS reporting as well as appropriate urinalysis to date. We will give him 2-month prescription and follow up that time or sooner if necessary. The patient is also discussed water therapy, he has been using his pool at home and feels this may be helping his pain as well. I encouraged him to continue this as well as do some strengthening and stretching exercises, which he again discussed. Again, if any side effects occur or any new changes or conditions, he will call prior to his next appointment, which will be in 2 months for followup as scheduled. ABBIE VALENCIA MD DR: JULIEN/sonam JOB#: [id number] / [id number]
== END | disposition home or self-care (01) ==
LOC: PNCL 12:48
PROVIDERS: ATTEND Anesthesiology
DX: M51.24 Other intervertebral disc displacement, thoracic region (principal); M51.34 Other intervertebral disc degeneration, thoracic region; M47.894 Other spondylosis, thoracic region; M79.1 Myalgia; I10 Essential (primary) hypertension; K21.9 Gastro-esophageal reflux disease without esophagitis; E66.9 Obesity, unspecified; J45.909 Unspecified asthma, uncomplicated; Z86.2 Personal history of diseases of the blood and blood-forming organs and certain disorders involving the immune mechanism; Z86.711 Personal history of pulmonary embolism; Z86.39 Personal history of other endocrine, nutritional and metabolic disease; Z87.39 Personal history of other diseases of the musculoskeletal system and connective tissue; Z86.69 Personal history of other diseases of the nervous system and sense organs; Z90.49 Acquired absence of other specified parts of digestive tract; Z68.37 Body mass index [BMI] 37.0-37.9, adult; Z82.49 Family history of ischemic heart disease and other diseases of the circulatory system
CPT/HCPCS: G0463

== ENCOUNTER → 2018-03-26 | Outpatient (CLI) | payer OTHER, MEDICARE ==
[2018-01-05 07:24] VITALS: BP 139/102
[2018-03-26 14:23] LABS: BASO # 0.1 x10^3/uL (0.0-0.2); BASO % 1 % (0-3); EOS # 0.1 x10^3/uL (0.0-0.7); EOS % 1 % (0-3); HEMATOCRIT 45.3 % (39.0-53.0); HEMOGLOBIN 15.4 g/dL (13.0-17.5); LYMPH # 2.4 x10^3/uL (1.0-4.8); LYMPH % 18 % (24-48); MEAN CORPUSCULAR HEMOGLOBIN 32 pg (25-35); MEAN CORPUSCULAR HGB CONC 34 g/dL (31-37); MEAN CORPUSCULAR VOLUME 94 fL (79-100); MONO # 1.3 x10^3/uL (0.0-1.1); MONO % 10 % (0-9); NEUT # 9.4 x10^3uL (1.8-7.7); NEUT % 70 % (31-73); PLATELET COUNT 267 x10^3/uL (140-400); RED BLOOD COUNT 4.82 x10^6/uL (4.30-5.70); RED CELL DISTRIBUTION WIDTH 13.6 % (11.5-14.5); WHITE BLOOD COUNT 13.3 x10^3/uL (4.0-11.0)
[2018-03-26 14:35] LABS: ALBUMIN 3.1 g/dL (3.4-5.0); ALBUMIN/GLOBULIN RATIO 0.6 (1.0-1.7); ALK PHOS 80 U/L (46-116); ALT (SGPT) 58 U/L (16-63); ANION GAP 9 (6-14); AST (SGOT) 29 U/L (15-37); BLOOD UREA NITROGEN 26 mg/dL (8-26); BUN/CREATININE RATIO 22 (6-20); CALCIUM 9.1 mg/dL (8.5-10.1); CARBON DIOXIDE 31 mmol/L (21-32); CHLORIDE 98 mmol/L (98-107); CREATININE 1.2 mg/dL (0.7-1.3); GFR 60.4; GLUCOSE 146 mg/dL (70-99); POTASSIUM 3.9 mmol/L (3.5-5.1); SODIUM 138 mmol/L (136-145); TOTAL BILIRUBIN 0.2 mg/dL (0.2-1.0); TOTAL PROTEIN 7.9 g/dL (6.4-8.2)
[2018-03-26 14:36] LABS: VAL ACID 51 mcg/mL (50-100)
[2018-03-26 14:44] LABS: FREE T4 0.83 ng/dL (0.76-1.46); THYROID STIM HORMONE (TSH) 2.117 uIU/mL (0.358-3.74)
== END | disposition home or self-care (01) ==
LOC: LAB 11:17
PROVIDERS: ATTEND Nurse Practitioner Psychiatric/Mental Health
DX: M47.894 Other spondylosis, thoracic region (principal); M51.34 Other intervertebral disc degeneration, thoracic region; I10 Essential (primary) hypertension
CPT/HCPCS: 36415; 80053; 80164; 84439; 84443; 85025

== ENCOUNTER → 2018-03-26 | Outpatient (CLI) | payer OTHER, MEDICARE ==
[2018-01-05 07:24] VITALS: BP 139/102
[~2018-03-26] MED LIST changes: +BUPIVACAINE MPF 0.25% 10 ML VIAL. ONE; +methylPREDNISolone ACETATE 40 MG/ML VIAL. ONE
--- NOTE | 2018-03-26 17:48 | PAIN ---
DATE OF SERVICE: 03/26/2018 PROGRESS NOTE FOR PAIN CLINIC DIAGNOSES: 1. Thoracic spondylosis with thoracic degenerative disk disease, thoracic herniated disk. 2. Myofascial pain. HISTORY OF PRESENT ILLNESS: The patient is 68-year-old male who returns for followup status post medication management as well as thoracic radiofrequency ablation as well as facet injections over the years. The patient has done fairly well with these, but only for a limited period of time. The patient is doing well with this medication management. He reports increased pain between the shoulder blades and the mid upper back, slightly more on the left than the right, but becoming more constant, more aching and severe. The patient describes the pain as 10 on a scale 10 at its worst, 8 on average, 6 at its least and is an 8 today. The patient reports it is sharp, stabbing, constant, becoming more severe in the mid upper back again more on the left side. The patient reports no new motor or sensory deficits or other complaints, but significant pain waking him from sleep at night about every 6 hours or so, he is to reposition to get back to bed. Also with sitting up in his electric wheelchair, pain is becoming more noticeable as well between the shoulder blades and the mid upper back, again slightly more on the left than right without any specific radiation. The patient reports no new motor or sensory deficits or other complaints. No side effects with this medication. He reports about 75% improvement with the medication generally until the last 2 weeks or so, but the pain is beginning to become more noticeable in the mid upper back. PHYSICAL EXAMINATION: VITAL SIGNS: The patient's blood pressure is 124/89, pulse 94, respirations 20, temperature 98.3 degrees Fahrenheit, weight is 294 pounds. GENERAL: The patient is awake, alert, oriented, appropriate, very pleasant demeanor. The patient accompanied by his spouse. HEENT: Head shows normocephalic, atraumatic. Extraocular muscles are intact and symmetrical. Oral cavity: Mucous membranes moist and pink. Dentition is intact. NECK: Shows anterior throat supple without palpable lymphadenopathy noted. Swallow reflex symmetrical. CHEST: Shows normal on inspection. Breath sounds clear to auscultation bilaterally. HEART: Shows S1, S2 clear. No murmurs auscultated. ABDOMEN: Obese, soft, nontender, nondistended. No palpable organomegaly is noted. No rebound or guarding demonstrated. BACK: Shows spine grossly in the midline with slight exaggeration of thoracic kyphosis with palpation shows some moderate tenderness and even severe tenderness with the mid left paraspinous musculature with very firm rope-like musculature consistent with trigger point areas of muscle on the left greater than right, but present bilaterally and very tender without specific radiation on palpation. The patient shows good rotational motion of the thoracic spine with some minor tenderness with extension, but not forward flexion or left and right lateral rotation. EXTREMITIES: The patient's upper extremities show deep tendon reflexes at 2+ in the biceps and triceps tendons. Motor exam is strong with predator control trapper strength rated at 5/5. Peripheral pulses are 2+ radial distribution bilaterally. Options were discussed with the patient. The patient's old chart was reviewed as his current medication regimen updated. Current review of systems updated today as well. We will proceed with trigger point injections of the mid thoracic paraspinous musculature bilaterally. Risks were discussed including but not limited to bleeding, infection, possibility of intravascular injection sequelae, spread of local anesthetic and numbness, pneumothorax, side effects of steroid medication and poor results regarding pain control. The patient understands and wished to proceed. The patient to return to clinic in approximately 4 weeks for followup. He was given refill prescriptions. He has had appropriate K-TRACS reporting as well as appropriate urinalysis to date and we will give a 2-month refill with instructions and side effects to be aware of discussed. The patient will follow up as scheduled. DIAGNOSES: Myofascial pain with thoracic spondylosis and thoracic degenerative disk disease. PROCEDURE: Trigger point injections to the thoracic paraspinous musculature bilaterally under sterile prep and drape using local anesthetic. MEDICATION INJECTED: A total of 6 mL of 0.25% bupivacaine, total of 40 mg Depo-Medrol after negative aspiration at each injection site. CONDITION AT DISCHARGE: Stable. The patient tolerated the procedure well, had no complications. ABBIE VALENCIA MD DR: JULIEN/sonam JOB#: [id number] / [id number]
== END | disposition home or self-care (01) ==
LOC: PNCL 11:32
PROVIDERS: ATTEND Anesthesiology
DX: M79.18 Myalgia, other site (principal); M51.34 Other intervertebral disc degeneration, thoracic region; M47.814 Spondylosis without myelopathy or radiculopathy, thoracic region
CPT/HCPCS: 20552; J1030; J3490; 20553

== ENCOUNTER → 2018-05-21 | Outpatient (CLI) | payer OTHER, MEDICARE ==
[2018-01-05 07:24] VITALS: BP 139/102
[~2018-05-21] MED LIST changes: -BUPIVACAINE MPF 0.25% 10 ML VIAL. ONE; -OXYC-328 PO; -OXYC10TA45 PO; +OXYC10TA46 PO; +OXYC1TAB22 PO; -SENN-79 PO; +SENN-80 PO; -methylPREDNISolone ACETATE 40 MG/ML VIAL. ONE
--- NOTE | 2018-05-21 15:21 | PAIN ---
DATE OF SERVICE: 05/21/2018 DIAGNOSES: 1. 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 2. Myofascial pain. HISTORY OF PRESENT ILLNESS: The patient is a 68-year-old male who returns for a followup status post medication management, also trigger point injection on his last visit. The patient reports about 75% improvement after the injection, but the pain is still significant in the mid upper back. The patient reports his medication, however, is controlling the pain fairly significantly to about a 75-80% improvement overall and without any side effects. The patient reports no new motor or sensory deficits, no new changes, no bowel or bladder incontinence. Still significant pain reported in the mid upper back as it was previously, some on the right side greater than the left, in the low back as well. The patient reports it is cramping and stabbing, sharp at times, radiating, worse with activity, changing positions, better with sitting or lying down, worse with standing or walking. The patient is using a motorized wheelchair at all times for his ambulation. The patient reports the pain is a 10 on a scale of 10 at its worst, 7 on average and a 4 at its least and is a 4 today. The patient reports again no side effects with the medication, reports it gets him through his day and he is able to sleep better at night because of it. Again, no side effects noted. PHYSICAL EXAMINATION: VITAL SIGNS: The patient's blood pressure is 142/86, pulse 79, respirations 18, temperature 97.7 degrees Fahrenheit. Height is 6 feet 1 inch, weight is deferred as the patient is in his motorized wheelchair. GENERAL: The patient is awake, alert, oriented, appropriate, very pleasant in demeanor. The patient accompanied by his and granddaughter. HEENT: Shows normocephalic, atraumatic. Extraocular movements intact and symmetrical. Oral cavity shows mucous membranes moist and pink. NECK: Shows anterior throat supple without palpable lymphadenopathy noted. Swallow reflex symmetrical. Neck shows good rotational motion both laterally as well as extension and flexion without significant tenderness greater than 45 degrees right and left as well as extension and forward flexion, but only minor pain reported with each of these maneuvers. CHEST: Shows normal with inspection. Breath sounds are clear to auscultation bilaterally. HEART: Shows S1, S2 clear. No murmurs auscultated. ABDOMEN: Obese, soft, nontender, nondistended. No palpable organomegaly is noted. No rebound or guarding demonstrated. MUSCULOSKELETAL: The patient's back shows spine grossly in the midline, slight exaggerated thoracic kyphosis. Some minor tenderness with palpation in the thoracic distribution without significant radiation, moderately firm, though bilaterally, but without specific trigger points on inspection today as from previous inspection and slightly less painful. The patient's lower extremities show deep tendon reflexes at 1+ in the patellar and tendo-calcaneus tendons. Motor exam is approximately 4 on a scale of 5, but equal and symmetrical bilaterally. Peripheral pulses are 1+ posterior tibia. No peripheral edema is noted bilaterally. PLAN: Options were discussed with the patient. The patient's old chart was reviewed as his current medication regimen and updated. Current review of systems updated today as well. We will refill the patient's medication both hydromorphone as well as oxycodone. The patient was given instruction as well as side effects to be aware of with each of the medications. The patient had appropriate K-TRACS reporting as well as appropriate urinalysis to date and we will refill this for 2 months. The patient was given instruction as well as side effects to be aware of with medication and again has had appropriate K-TRACS reporting and urinalysis, will have a 2-month refill period or sooner if necessary. ABBIE VALENCIA MD DR: JULIEN/sonam JOB#: [id number] / [id number]
== END | disposition home or self-care (01) ==
LOC: PNCL 11:37
PROVIDERS: ATTEND Anesthesiology
DX: M51.34 Other intervertebral disc degeneration, thoracic region (principal); M51.24 Other intervertebral disc displacement, thoracic region; M47.814 Spondylosis without myelopathy or radiculopathy, thoracic region
CPT/HCPCS: G0463

== ENCOUNTER → 2018-07-23 | Outpatient (CLI) | payer OTHER, MEDICARE ==
[2018-01-05 07:24] VITALS: BP 139/102
[~2018-07-23] MED LIST changes: +BUPIVACAINE MPF 0.25% 10 ML VIAL. ONE; +methylPREDNISolone ACETATE 40 MG/ML VIAL. ONE
--- NOTE | 2018-07-23 20:00 | PAIN ---
DATE OF SERVICE: 07/23/2018 DIAGNOSES: 1. Thoracic spondylosis with thoracic degenerative disk disease, thoracic herniated disk. 2. Myofascial pain. HISTORY OF PRESENT ILLNESS: The patient is a 68-year-old male who returns for followup status post medication management with both hydromorphone and oxycodone. The patient has been on very stable regimen of this and has been doing fairly well, but reports his pain has been increased over the past 3 to 4 weeks. He has fallen twice including once out of bed this morning, caused some pain into the right low back and hip region. The patient reports no radiation of pain in the leg, but across into the low back, more on the right side. The patient reports it is a 10 on a scale of 10 on average at worst and is a 7 at its least and is a 10 today. The patient reports no loss of motor function, but has significant difficulty even getting up out of his chair, getting out of bed, getting into bed, changing positions or bending forward when he is standing, even trying to shave in the morning at his sink counter. The patient says it is extremely worse, has not thought of any other incidents besides the falls that could have caused the pain, described it as constant, severe, unbearable, sharp, radiating across the back at times, but not into the lower extremities. The patient reports his medication is doing well, but only decreasing the pain by about 50%, was normally 75% or better and no side effects. PHYSICAL EXAMINATION: VITAL SIGNS: The patient's blood pressure 133/90, pulse is 76, respirations are 18, temperature 98.3 degrees Fahrenheit. GENERAL: The patient is awake, alert, oriented, appropriate, very pleasant demeanor. HEENT: Shows normocephalic, atraumatic. Extraocular movements are intact and symmetrical. Oral cavity: Mucous membranes moist and pink. Dentition is intact. NECK: Shows anterior throat supple without palpable lymphadenopathy noted. Swallow reflex is symmetrical. CHEST: Shows normal on inspection. Breath sounds are clear bilaterally. HEART: Shows S1 and S2 clear. No murmurs auscultated. ABDOMEN: Obese, soft, nontender, nondistended. BACK: Shows spine grossly in the midline. Slight exaggeration of thoracic kyphosis and some flattening of lumbar lordotic curvature. Well-healed surgical scar in the lumbar distribution. Lumbar paraspinous muscle shows symmetrical, but with palpation shows some significant tenderness with very firm rope-like musculature in the right low paraspinous region, also into the right superior medial gluteus with very firm rope-like musculature, very consistent with trigger point areas of muscle, but without significant radiation. The patient shows difficulty with rotational motion of lumbar spine with pain on the right side as well as with flexion and extension, but not with left lateral rotation. EXTREMITIES: The patient's lower extremities show deep tendon reflexes 1+ in the patellar and tendo calcaneus tendons. Motor exam is approximately 4 on a scale of 5, but equal with dorsiflexion and extension and peripheral pulses are 1+ bilaterally. Options were discussed with the patient. The patient's old chart was reviewed as was his current medication regimen updated. Current review of systems is updated today as well. We will proceed with trigger point injections of the right paraspinous musculature as well as right gluteus musculature. Risks were discussed including, but not limited to bleeding, infection, possibility of intravascular injection sequelae, spread of local anesthetic and numbness, side effects of steroid medication and poor results regarding pain control. The patient understands and wished to proceed. The patient will return to the clinic in approximately 2 months or sooner if necessary. The patient was given refill prescription for both the oxycodone as well as the hydromorphone with instructions, side effects to be aware of discussed. The patient had appropriate K-TRACS reporting as well as appropriate urinalysis to date and we will have him return on a 2-month period or sooner as necessary. DIAGNOSIS: Myofascial pain. PROCEDURE: Trigger point injections, right lumbar paraspinous musculature and right gluteus, under sterile prep and drape using local anesthetic. MEDICATION INJECTED: A total of 40 mg Depo-Medrol plus total of 3 mL of 0.5% bupivacaine after negative aspiration at each injection site. CONDITION AT DISCHARGE: Stable. The patient tolerated the procedure well, had no complications. ABBIE VALENCIA MD DR: JULIEN/sonam JOB#: [id number] / [id number]
== END | disposition home or self-care (01) ==
LOC: PNCL 11:42
PROVIDERS: ATTEND Anesthesiology
DX: M79.18 Myalgia, other site (principal); M51.34 Other intervertebral disc degeneration, thoracic region; M47.814 Spondylosis without myelopathy or radiculopathy, thoracic region
CPT/HCPCS: 20552; J1030; J3490

== ENCOUNTER → 2018-09-30 | Outpatient (CLI) | payer OTHER, MEDICARE ==
[2018-01-05 07:24] VITALS: BP 139/102
[~2018-09-30] MED LIST changes: +AMOX1TAB11 PO; +ASPI325T11 PO; -BUPIVACAINE MPF 0.25% 10 ML VIAL. ONE; +LACT1CAP19 PO; +LEVO75TA PO; +QUET25TA PO; -methylPREDNISolone ACETATE 40 MG/ML VIAL. ONE
--- NOTE | 2018-10-01 07:41 | PAIN ---
DATE OF SERVICE: 09/30/2018 DIAGNOSES: 1. 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 2. Myofascial pain. HISTORY OF PRESENT ILLNESS: The patient is a 68-year-old male who returns for followup status post medication management with both hydromorphone and oxycodone. The patient is on a very stable regimen with the medications and reports he is doing fairly well with this with about a 70% improvement overall without significant side effects. The patient is somewhat sleepy today as he did not sleep well at night. He is having some increased pain in the low back and mid back. He reports he has been becoming less and less mobile secondary to the pain. We discussed this with he and his spouse at length today and encouraged him to increase his activity as he is getting into a significant deconditioned state, which is causing his pain, most likely being intensified. The patient voices understanding, as does his spouse even, and we discussed some walking daily 3-4 times through the house if possible. The patient reports his pain across the low back, mid back, upper back, rated 10 on a scale of 10 at its worst, 9 on average, 6 at its least over the past week and is a 9 today. The patient reports it is constant and sometimes unbearable, aching, dull, sharp, worse with walking, standing, changing positions, better with sitting or lying down, does not awaken him from sleep; however, he feels fairly good when he is lying down, even a recumbent or semirecumbent position as well. The patient reports no new changes. No new bowel or bladder incontinence or significant side effects with medications. PHYSICAL EXAMINATION: VITAL SIGNS: His blood pressure 144/81, pulse 64, respirations 18, temperature 97.9 degrees Fahrenheit. Height is 6 feet, weight is 300 pounds. GENERAL: The patient is awake, alert, oriented, appropriate, very pleasant demeanor. HEENT: Shows normocephalic, atraumatic. Extraocular movements intact and symmetrical. Oral cavity: Mucous membranes are moist and pink. Dentition is intact. NECK: Shows anterior throat supple without palpable lymphadenopathy noted. Swallow reflex symmetrical. CHEST: Shows normal with inspection. Breath sounds are clear bilaterally. HEART: Shows S1, S2 clear. No murmurs auscultated. ABDOMEN: Obese, soft, nontender, nondistended. BACK: Shows spine grossly in the midline. Slight exaggeration of thoracic kyphosis and flattening of lumbar lordotic curvature. Thoracic paraspinous muscle shows symmetrical on inspection and palpation shows some moderate tenderness diffusely bilaterally in the middle and upper distribution of paraspinous muscles. No tenderness over the spinous processes. The patient has good rotational motion with only very minimal discomfort with extension, flexion, right and left lateral rotation. Lumbar spine shows some increased pain with palpation in the lower lumbar distribution of paraspinous muscles bilaterally, but appears roughly symmetrical on inspection. No trigger points, no radiation of pain. The patient does show some minor tenderness with extension, but not with forward flexion of the lumbar spine, but only minor. EXTREMITIES: The patient's lower extremities show deep tendon reflexes 1+ in the patellar and tendo calcaneus tendons. Motor exam is approximately 4 on a scale of 5 with dorsiflexion, extension, but equal and symmetrical. Peripheral pulses are 1+ bilaterally. IMPRESSION: Options were discussed with the patient and the patient's spouse again. The patient has been on a stable regimen with the medications, had appropriate K-TRACS reporting as well as appropriate urinalysis to date. We will refill his hydromorphone as well as oxycodone for a 2-month period, with instructions, side effects to be aware of discussed. Also, again stressed the importance of increase his activity with some conditioning for the back and legs and offered formal physical therapy consultation if he would like to pursue this. The patient would like to try and do this on his own first. We will revisit this on his next visit. The patient also has a pool at home and encouraged him to use this as well with some therapy, he has done in the past effectively. The patient will follow up in approximately 2 months or sooner as necessary, was given instructions as well as side effects to be aware of with medications. ABBIE VALENCIA MD DR: JULIEN/sonam JOB#: [id number] / [id number]
== END | disposition home or self-care (01) ==
LOC: EDBD → PNCL 13:50
PROVIDERS: ATTEND Anesthesiology
DX: M51.34 Other intervertebral disc degeneration, thoracic region (principal); M47.814 Spondylosis without myelopathy or radiculopathy, thoracic region; M51.24 Other intervertebral disc displacement, thoracic region; M79.18 Myalgia, other site
CPT/HCPCS: G0463

== ENCOUNTER 2018-11-07 15:38 | Inpatient (IN) | payer OTHER, MEDICARE ==
[~2018-11-07] VITALS: Ht 188 cm; Wt 139.7 kg
[~2018-11-07 15:38] MED LIST changes: -AMOX1TAB11 PO; -ASPI325T11 PO; -LACT1CAP19 PO; -LEVO75TA PO; -QUET25TA PO
[2018-11-07 17:45] VITALS: BP 137/79
[2018-11-07] MEDS ORDERED: HYDROmorphone 4 MG TABLET PO PRN (18:00)
--- NOTE | 2018-11-07 18:05 | EKG ---
[facility] [address] [place] [address] Test Date: 2018-11-07 Test Time: 18:03:21 Pat Name: KENROY MCKINNEY Department: Room: 254 1 Gender: M [employer] Instructor: MARCO ANTONIO : 1950 Requested By: YOSEF QUINONES Order Number: [id number] Reading MD: Measurements Intervals [place] Rate: 57 P: [place]: QRS: -24 QRSD: 104 T: -5 QT: 412 QTc: 404 Interpretive Statements IRREGULAR RHYTHM, NO P-WAVE FOUND LEFTWARD AXIS OTHERWISE NORMAL ECG RI6.01 Compared to ECG 01/16/2017 14:34:46 First degree AV block no longer present T-wave abnormality no longer present
[2018-11-07] MEDS ORDERED: CYCL10TA2 PO (18:11)
[2018-11-07] MEDS ORDERED: DOCUSATE SODIUM 100 MG CAPSULE. PO PRN (18:15)
[2018-11-07] MEDS: HYDROmorphone 4 MG TABLET PO PRN (18:36)
[2018-11-07] MEDS: oxyCODONE/APAP 10/325 1 TAB TABLET PO PRN (18:36)
[2018-11-07 19:30] VITALS: BP 167/87
[2018-11-07] MEDS: DIVALPROEX EXTENDED RELEASE 500 MG TAB.ER.24H. PO SCH (20:21)
[2018-11-07] MEDS: OMEGA-3 FATTY ACIDS/FISH OIL 1,000 MG CAPSULE. PO SCH ×2 (20:21→20:25)
[2018-11-07] MEDS: CYCLOBENZAPRINE 10 MG TABLET. PO SCH (20:21)
[2018-11-07] MEDS: ATORVASTATIN CALCIUM 40 MG TABLET. PO SCH ×2 (20:21→20:25)
[2018-11-07] MEDS: QUEtiapine 25 MG TABLET. PO SCH (20:22)
[2018-11-07] MEDS: LORazepam 1 MG TABLET PO SCH (20:22)
[2018-11-07 20:49] LABS: BASO # 0.1 x10^3/uL (0.0-0.2); BASO % 1 % (0-3); EOS % 0 % (0-3); HEMATOCRIT 34.3 % (39.0-53.0); HEMOGLOBIN 11.4 g/dL (13.0-17.5); LYMPH # 1.2 x10^3/uL (1.0-4.8); LYMPH % 16 % (24-48); MEAN CORPUSCULAR HEMOGLOBIN 31 pg (25-35); MEAN CORPUSCULAR HGB CONC 33 g/dL (31-37); MEAN CORPUSCULAR VOLUME 92 fL (79-100); MONO # 0.7 x10^3/uL (0.0-1.1); MONO % 9 % (0-9); NEUT # 5.8 x10^3uL (1.8-7.7); NEUT % 74 % (31-73); PLATELET COUNT 271 x10^3/uL (140-400); RED BLOOD COUNT 3.71 x10^6/uL (4.30-5.70); RED CELL DISTRIBUTION WIDTH 13.1 % (11.5-14.5); WHITE BLOOD COUNT 7.8 x10^3/uL (4.0-11.0)
[2018-11-07] MEDS: PRIMIDONE 250 MG TABLET PO SCH (21:00)
[2018-11-07 21:09] LABS: ALBUMIN 2.1 g/dL (3.4-5.0); ALBUMIN/GLOBULIN RATIO 0.5 (1.0-1.7); CALCIUM 8.4 mg/dL (8.5-10.1); CREATININE 0.8 mg/dL (0.7-1.3); GFR 96.4; POTASSIUM 3.7 mmol/L (3.5-5.1); TOTAL BILIRUBIN 0.4 mg/dL (0.2-1.0); TOTAL PROTEIN 6.4 g/dL (6.4-8.2)
--- NOTE | 2018-11-07 21:45 | NUR ---
Patient direct admit from [facility] prior to shift change. , Wiley, RN at [facility], at bedside. Patient is alert. C/O pain. Soft Neck Brace in place. Had fall at home prior to admit to [facility] with Dx of C2 Fx. Admit to CVC 2/2 A-Flutter on the monitor. Controlled rate of 56 bpm. Skin tear noted to left elbow on arrival to floor. Pictures taken and wound care consulted. Dr Rapp on the floor to see patient.
--- NOTE | 2018-11-07 22:06 | PDOC1 ---
History and Physical Date of Admission Date of Admission DATE: 11/07/18 TIME: 22:01 History of Present Illness History of Present Illness transfer today from [facility] hospital. He was admitted there 4 days prior for a fall and neck pain. New neck fracture, was admitted to the ICU, neurosurg consult, rigid collar and wsa in the ICU there until today. Treated wtih Abx for pneumonia, and he has agitation and confuion problems the last few days. His is an RN here, and request was made to transfer here for insurance reasons. He has chronic neck pain, takes 8mg PO dilaudid PRN at baseline for his pain. follows with Dr. Mckee here for pain, and fell at home last sunday and had severe neck pain and neck fracture. chronic pain is back and neck due to autoimmune disease and predisone use and likely osteopenia. This PM, he has been agitated, now calm and sleepinging, has gotten IV ativan, history per his . he does have new Atrial flutter, but is rate controlled about 60, and they did an echo at [facility] that was reproted as normal. Past Medical History Cardiovascular: HTN, Other Pulmonary: Other Psych: Anxiety, Bipolar, Depression Musculoskeletal: Osteoarthritis, Other Infectious disease: No pertinent hx Renal/: No pertinent hx Endocrine: No pertinent hx Past Surgical History Past Surgical History: Cholecystectomy, Other Family History Family History: Coronary Artery Disease Social History ALCOHOL: none Drugs: None Current Medications Current Medications Current Medications Hydromorphone HCl (Dilaudid) 8 mg PRN Q4HRS PRN PO PAIN; Start 11/07/18 at 18:00; Status Cancel Quetiapine Fumarate (SEROquel) 50 mg QHS PO Last administered on 11/07/18at 20:22; Start 11/07/18 at 21:00 Oxycodone/ Acetaminophen (Percocet 10/325) 1 tab PRN Q4HRS PRN PO severe pain Last administered on 11/07/18at 18:36; Start 11/07/18 at 18:15 Atorvastatin Calcium (Lipitor) 40 mg QHS PO ; Start 11/07/18 at 21:00 Cyclobenzaprine HCl (Flexeril) 10 mg BID PO Last administered on 11/07/18at 20:21; Start 11/07/18 at 21:00 Divalproex Sodium (Depakote Er) 500 mg BID PO Last administered on 11/07/18at 20:21; Start 11/07/18 at 21:00 Docusate Sodium (Colace) 100 mg PRN BID PRN PO CONSTIPATION; Start 11/07/18 at 18:15 Prednisone (Prednisone) 20 mg DAILY PO ; Start 11/08/18 at 09:00 Non-Formulary Medication (Fluvoxamine Maleate ) 300 mg DAILY06 PO ; Start 11/08/18 at 06:00; Status UNV Hydromorphone HCl (Dilaudid) 8 mg PRN Q4HRS PRN PO PAIN Last administered on 11/07/18at 18:36; Start 11/07/18 at 18:30 Lisinopril (Prinivil) 5 mg DAILY PO ; Start 11/08/18 at 09:00 Lorazepam (Ativan) 2 mg HS PO Last administered on 11/07/18at 20:22; Start 11/07/18 at 21:00 Fish Oil (Fish Oil) 1,000 mg TID PO ; Start 11/07/18 at 21:00 Primidone (Mysoline) 250 mg BID PO ; Start 11/07/18 at 21:00 Active Scripts Active Lisinopril 5 Mg Tablet 5 Mg PO DAILY Atorvastatin Calcium 40 Mg Tablet 40 Mg PO QHS Reported Cyclobenzaprine Hcl 10 Mg Tablet 1 Tab PO BID Dilaudid (Hydromorphone Hcl) 8 Mg Tablet 1 Tab PO Q4-6HRS PRN Ativan (Lorazepam) 2 Mg Tablet 2 Mg PO HS Vitamin E (Vitamin E (Dl,Tocopheryl Acet)) 400 Unit Capsule 400 Unit PO Senna (Sennosides) 8.6 Mg Tablet 8.6 Mg PO PRN Colace (Docusate Sodium) 100 Mg Capsule 1 Cap PO BID PRN Fluvoxamine Maleate 100 Mg Tablet 300 Mg PO DAILY06 Depakote Er (Divalproex Sodium) 500 Mg Tab.er.24h 1 Tab PO BID Prednisone 20 Mg Tablet 20 Mg PO DAILY Percocet 10-325 Mg Tablet (Oxycodone/Acetaminophen) 1 Each Tablet 1 Tab PO Q4HRS Mysoline (Primidone) 250 Mg Tablet 250 Mg PO BID [place] 3 1,000 Mg Softgel ([place]-3 Fatty Acids/Fish Oil) 1 Each Capsule 1 Each PO TID Allergies Allergies: Coded Allergies: No Known Allergies (Verified Allergy, Unknown, 10/27/13) ROS General: YES: Fatigue PSYCHOLOGICAL ROS: YES: Anxiety, Disorientation, Hallucinations, Irritablity, Sleep disturbances Eyes: No Blurry vision, No Decreased vision, No Double vision, No Dry eyes, No Excessive tearing, No Eye Pain, No Itchy Eyes, No Loss of vision, No Photophobia, No Scotomata, No Uses contacts, No Uses glasses, No Other HEENT: No: Heacaches, Visual Changes, Hearing change, Nasal congestion, Nasal discharge, Oral lesions, Sinus pain, Sore Throat, Epistaxis, Sneezing, Snoring, Tinnitus, Vertigo, Vocal changes, Other Respiratory: YES: SOB with excertion, Sputum Changes, Tachypnea, Wheezing; No: Cough, Hemoptysis, Orthopnea, Pleuritic Pain, Shortness of breath, Stridor, Other Cardiovascular: No Chest Pain, No Palpitations, No Orthopnea, No Paroxysmal Noc. Dyspnea, No Edema, No Lt Headedness, No Other Gastrointestinal: No Nausea, No Vomiting, No Abdominal Pain, No Diarrhea, No Constipation, No Melena, No Hematochezia, No Other Genitourinary: No Dysuria, No Frequency, No Incontinence, No Hematuria, No Retention, No Discharge, No Urgency, No Pain, No Flank Pain, No Other, No , No , No , No , No , No , No Musculoskeletal: Yes Gait Disturbance, Yes Joint Pain, Yes Joint Stiffness, Yes Muscular Weakness, Yes Pain In: Neurological: Yes Gait Disturbance; No Behavorial Changes, No Bowel/Bladder ControlChng, No Confusion, No Dizziness, No Headaches, No Impaired Coord/balance, No Memory Loss, No Num bness/Tingling, No Seizures, No Speech Problems, No Tremors, No Visual Changes, No Weakness, No Other Skin: No Dry Skin, No Eczema, No Hair Changes, No Lumps, No Mole Changes, No Mottling, No Nail Changes, No Pruritus, No Rash, No Skin Lesion Changes, No Other, No Acne Physical Exam General: Alert, Cooperative, mild distress, Other HEENT: EOMI Lungs: Other (mod volume, rales, ) Heart: S1S2, no gallops Abdomen: Normal bowel sounds, Soft Rectal Exam: not examined Extremities: No edema Skin: No significant lesion Neuro: Normal speech, Normal tone, Cranial nerves 3-12 NL Vitals Vitals Vital Signs Date Time Temp Pulse Resp B/P (MAP) Pulse Ox O2 Delivery O2 Flow Rate FiO2 11/07/18 19:36 18 95 Nasal Cannula 2.0 11/07/18 19:30 97.9 56 167/87 (113) 97.9 Labs Labs Laboratory Tests Test 11/07/18 20:30 White Blood Count 7.8 x10^3/uL (4.0-11.0) Red Blood Count 3.71 x10^6/uL (4.30-5.70) Hemoglobin 11.4 g/dL (13.0-17.5) Hematocrit 34.3 % (39.0-53.0) Mean Corpuscular Volume 92 fL (79-100) Mean Corpuscular Hemoglobin 31 pg (25-35) Mean Corpuscular Hemoglobin Concent 33 g/dL (31-37) Red Cell Distribution Width 13.1 % (11.5-14.5) Platelet Count 271 x10^3/uL (140-400) Neutrophils (%) (Auto) 74 % (31-73) Lymphocytes (%) (Auto) 16 % (24-48) Monocytes (%) (Auto) 9 % (0-9) Eosinophils (%) (Auto) 0 % (0-3) Basophils (%) (Auto) 1 % (0-3) Neutrophils # (Auto) 5.8 x10^3uL (1.8-7.7) Lymphocytes # (Auto) 1.2 x10^3/uL (1.0-4.8) Monocytes # (Auto) 0.7 x10^3/uL (0.0-1.1) Eosinophils # (Auto) 0.0 x10^3/uL (0.0-0.7) Basophils # (Auto) 0.1 x10^3/uL (0.0-0.2) Sodium Level 137 mmol/L (136-145) Potassium Level 3.7 mmol/L (3.5-5.1) Chloride Level 102 mmol/L (98-107) Carbon Dioxide Level 29 mmol/L (21-32) Anion Gap 6 (6-14) Blood Urea Nitrogen 22 mg/dL (8-26) Creatinine 0.8 mg/dL (0.7-1.3) Estimated GFR (Cockcroft-Gault) 96.4 BUN/Creatinine Ratio 28 (6-20) Glucose Level 124 mg/dL (70-99) Calcium Level 8.4 mg/dL (8.5-10.1) Total Bilirubin 0.4 mg/dL (0.2-1.0) Aspartate Amino Transf (AST/SGOT) 97 U/L (15-37) Alanine Aminotransferase (ALT/SGPT) 78 U/L (16-63) Alkaline Phosphatase 47 U/L (46-116) Total Protein 6.4 g/dL (6.4-8.2) Albumin 2.1 g/dL (3.4-5.0) Albumin/Globulin Ratio 0.5 (1.0-1.7) Laboratory Tests Test 11/07/18 20:30 White Blood Count 7.8 x10^3/uL (4.0-11.0) Red Blood Count 3.71 x10^6/uL (4.30-5.70) Hemoglobin 11.4 g/dL (13.0-17.5) Hematocrit 34.3 % (39.0-53.0) Mean Corpuscular Volume 92 fL (79-100) Mean Corpuscular Hemoglobin 31 pg (25-35) Mean Corpuscular Hemoglobin Concent 33 g/dL (31-37) Red Cell Distribution Width 13.1 % (11.5-14.5) Platelet Count 271 x10^3/uL (140-400) Neutrophils (%) (Auto) 74 % (31-73) Lymphocytes (%) (Auto) 16 % (24-48) Monocytes (%) (Auto) 9 % (0-9) Eosinophils (%) (Auto) 0 % (0-3) Basophils (%) (Auto) 1 % (0-3) Neutrophils # (Auto) 5.8 x10^3uL (1.8-7.7) Lymphocytes # (Auto) 1.2 x10^3/uL (1.0-4.8) Monocytes # (Auto) 0.7 x10^3/uL (0.0-1.1) Eosinophils # (Auto) 0.0 x10^3/uL (0.0-0.7) Basophils # (Auto) 0.1 x10^3/uL (0.0-0.2) Sodium Level 137 mmol/L (136-145) Potassium Level 3.7 mmol/L (3.5-5.1) Chloride Level 102 mmol/L (98-107) Carbon Dioxide Level 29 mmol/L (21-32) Anion Gap 6 (6-14) Blood Urea Nitrogen 22 mg/dL (8-26) Creatinine 0.8 mg/dL (0.7-1.3) Estimated GFR (Cockcroft-Gault) 96.4 BUN/Creatinine Ratio 28 (6-20) Glucose Level 124 mg/dL (70-99) Calcium Level 8.4 mg/dL (8.5-10.1) Total Bilirubin 0.4 mg/dL (0.2-1.0) Aspartate Amino Transf (AST/SGOT) 97 U/L (15-37) Alanine Aminotransferase (ALT/SGPT) 78 U/L (16-63) Alkaline Phosphatase 47 U/L (46-116) Total Protein 6.4 g/dL (6.4-8.2) Albumin 2.1 g/dL (3.4-5.0) Albumin/Globulin Ratio 0.5 (1.0-1.7) VTE Prophylaxis Ordered VTE Prophylaxis Devices: Yes VTE Pharmacological Prophylaxi: No Assessment/Plan Assessment/Plan acute on chronic neck pain, s/p fall and new cervical fracture, pain control, consult Dr. Mckee and Dr. Huffman he has seen neurosurg at [facility] pneumonia and recent sepsis, cont abx course, breathign tx prior pneumoia and chest pain and bronchitis obesity BMI 37 autoimmune disease, NOS, rhematoid, YOSEF QUINONES MD Nov 07, 2018 22:06
[2018-11-07] MEDS: DOXYCYCLINE HYCLATE 100 MG TABLET PO SCH (23:29)
[2018-11-07] MEDS: cefTRIAXone IV Push 1 GM VIAL. IVP SCH (23:30)
[2018-11-07] MEDS: ENOXAPARIN 40 MG/0.4 ML SYRINGE. SQ SCH (23:30)
[2018-11-07 23:37] VITALS: BP 105/73
[2018-11-08] MEDS: PRIMIDONE 250 MG TABLET PO SCH ×3 (00:51→21:04)
[2018-11-08] MEDS: HYDROmorphone 4 MG TABLET PO PRN ×4 (00:52→17:52)
[2018-11-08] MEDS: oxyCODONE/APAP 10/325 1 TAB TABLET PO PRN ×5 (01:25→21:05)
[2018-11-08 02:49] VITALS: BP 115/80
[2018-11-08 04:40] LABS: BASO # 0.1 x10^3/uL (0.0-0.2); BASO % 1 % (0-3); EOS # 0.1 x10^3/uL (0.0-0.7); EOS % 2 % (0-3); HEMATOCRIT 34.2 % (39.0-53.0); HEMOGLOBIN 11.5 g/dL (13.0-17.5); LYMPH # 1.7 x10^3/uL (1.0-4.8); LYMPH % 20 % (24-48); MEAN CORPUSCULAR HEMOGLOBIN 31 pg (25-35); MEAN CORPUSCULAR HGB CONC 34 g/dL (31-37); MEAN CORPUSCULAR VOLUME 92 fL (79-100); MONO % 11 % (0-9); NEUT # 5.7 x10^3uL (1.8-7.7); NEUT % 66 % (31-73); PLATELET COUNT 278 x10^3/uL (140-400); RED BLOOD COUNT 3.72 x10^6/uL (4.30-5.70); RED CELL DISTRIBUTION WIDTH 13.3 % (11.5-14.5); WHITE BLOOD COUNT 8.5 x10^3/uL (4.0-11.0)
[2018-11-08 05:12] LABS: ALBUMIN 2.2 g/dL (3.4-5.0); ALBUMIN/GLOBULIN RATIO 0.5 (1.0-1.7); CALCIUM 8.5 mg/dL (8.5-10.1); CREATININE 0.8 mg/dL (0.7-1.3); GFR 96.4; POTASSIUM 3.5 mmol/L (3.5-5.1); TOTAL BILIRUBIN 0.4 mg/dL (0.2-1.0); TOTAL PROTEIN 6.7 g/dL (6.4-8.2)
[2018-11-08] MEDS: FLUVOXAMINE MALEATE 300 MG PO SCH (05:26)
[2018-11-08 07:23] VITALS: BP 163/109
[2018-11-08] MEDS: DOXYCYCLINE HYCLATE 100 MG TABLET PO SCH ×2 (10:02→21:04)
[2018-11-08] MEDS: predniSONE 20 MG TABLET PO SCH (10:02)
[2018-11-08] MEDS: OMEGA-3 FATTY ACIDS/FISH OIL 1,000 MG CAPSULE. PO SCH ×3 (10:02→21:00)
[2018-11-08] MEDS: CYCLOBENZAPRINE 10 MG TABLET. PO SCH ×2 (10:02→21:04)
[2018-11-08] MEDS: DIVALPROEX EXTENDED RELEASE 500 MG TAB.ER.24H. PO SCH ×2 (10:03→21:03)
[2018-11-08] MEDS: LACTOBACILLUS RHAMNOSUS GG 1 CAPSULE. PO SCH ×2 (10:03→21:03)
[2018-11-08] MEDS: LISINOPRIL 5 MG TABLET. PO SCH (10:06)
--- NOTE | 2018-11-08 10:10 | NUR ---
wound care patient seen per wound care consult. see wound assessment. patient has a skin tear to the left lateral arm, the wound was cleaned, and redressed with Xeroform gauze with a foam dressing, recommendations of changing the dressing every 2-3 days. patient assessed from head to toe and no other wounds noted at this time. patient has a pink blanchable bottom, applied Calazime cream at this time. patient refused to turn at this time. heels placed in an off-loading position with pillow. notified ZARI Jerry about the POC and wound care will continue to f/u.
--- NOTE | 2018-11-08 10:50 | PDOC2 ---
ELIZABETH ESPINO TABLE GAMES DUAL RATE SUPERVISOR 11/08/18 1050: CARDIAC CONSULT DATE OF CONSULT Date of Consult DATE: 11/08/18 TIME: 10:04 REASON FOR CONSULT Reason for Consult: New onset atrial flutter REFERRING PHYSICIAN Referring Physician: Dionte SOURCE Source: Chart review, Patient HISTORY OF PRESENT ILLNESS HISTORY OF PRESENT ILLNESS This is a pleasant 68 yo male admitted for post fall and neck fracture and noted new atrial flutter. Apparently pt was transferred to [facility] due to insurance coverage. He fell in the bathroom, lost his balance but no lost of consciousness. At [facility] he was also treated for pneumonia. Prior to this trauma, he reports no hx of arrhythmias, CAD, CVA or VTE. No frequent falls. He does have chronic back pain and RA. He was on rate controlled with periods of bradycardia with atrial flutter overnight and converted to SR this morning. He is known for past mobitz type 1 as well as bradycardia in the past. He was seen in 2017 and outpt event monitor was performed and no significant arrhythmias was noted. PAST MEDICAL HISTORY Cardiovascular: HTN, Hyperlipidemia, Pulmonary hypertension, Other (mobitz type 1; pericarditis, bradycardia; Ascending aortic aneurysm; measuring 3.9 cm in 2017) Pulmonary: Pulmonary embolus, Pneumonia CENTRAL NERVOUS SYSTEM: Other (No pertinent history) GI: Constipation Heme/Onc: No pertinent hx Hepatobiliary: Cholelithiasis Psych: Anxiety, Bipolar, Depression Musculoskeletal: Osteoarthritis, Other (chronic opioid use; right clavicular fracture) Rheumatologic: Rheumatoid arthritis, Other (?lupus) ENT: No pertinent hx Renal/: No pertinent hx Endocrine: Osteopenia Dermatology: Other (vitiligo) PAST SURGICAL HISTORY Past Surgical History: Cholecystectomy, Other (pericardiectomy, back surgery) FAMILY HISTORY Family History: Coronary Artery Disease (father and mother) SOCIAL HISTORY Smoke: No ALCOHOL: none Drugs: None Lives: with Family CURRENT MEDICATIONS CURRENT MEDICATIONS Current Medications Medications (Trade) Dose Ordered Sig/Ayanna Route PRN Reason Start Time Stop Time Status Last Admin Dose Admin Quetiapine Fumarate (SEROquel) 50 mg QHS PO 11/07/18 21:00 11/07/18 20:22 Oxycodone/ Acetaminophen (Percocet 10/325) 1 tab PRN Q4HRS PRN PO severe pain 11/07/18 18:15 11/08/18 05:25 Cyclobenzaprine HCl (Flexeril) 10 mg BID PO 11/07/18 21:00 11/07/18 20:21 Divalproex Sodium (Depakote Er) 500 mg BID PO 11/07/18 21:00 11/07/18 20:21 Hydromorphone HCl (Dilaudid) 8 mg PRN Q4HRS PRN PO PAIN 11/07/18 18:30 11/08/18 08:13 Lorazepam (Ativan) 2 mg HS PO 11/07/18 21:00 11/07/18 20:22 Primidone (Mysoline) 250 mg BID PO 11/07/18 21:00 11/08/18 00:51 Ceftriaxone Sodium (Rocephin) 1 gm Q24H IVP 11/07/18 23:00 11/07/18 23:30 Doxycycline Hyclate (Vibra-Tab) 100 mg BID PO 11/07/18 23:00 11/07/18 23:29 Enoxaparin Sodium (Lovenox 40mg Syringe) 40 mg QHS SQ 11/07/18 23:00 11/07/18 23:30 ALLERGIES ALLERGIES: Coded Allergies: No Known Allergies (Verified Allergy, Unknown, 10/27/13) ROS Review of System 14 point ROS evaluated with pertinent positives noted per HPI PHYSICAL EXAM General: Alert, Oriented X3, Cooperative, No acute distress HEENT: Atraumatic, Mucous membr. moist/pink, Other (soft collar in place with noted ) Lungs: Other (diminished bases) Heart: Other (YON border systolic murmur 3/6) Abdomen: Soft, No tenderness Extremities: No cyanosis, No edema Skin: Other (vitiligo, left elbow wound with dressing) Neuro: Normal speech, Sensation intact Psych/Mental Status: Mental status NL, Other (flat affect) MUSCULOSKELETAL: Osteoarthritic changes both hands VITALS VITALS Vital Signs Date Time Temp Pulse Resp B/P (MAP) Pulse Ox O2 Delivery O2 Flow Rate FiO2 11/08/18 07:23 97.7 78 20 163/109 (127) 96 Nasal Cannula 2.0 97.7 LABS Lab: Laboratory Tests Test 11/07/18 20:30 11/08/18 04:20 White Blood Count 7.8 x10^3/uL (4.0-11.0) 8.5 x10^3/uL (4.0-11.0) Red Blood Count 3.71 x10^6/uL (4.30-5.70) 3.72 x10^6/uL (4.30-5.70) Hemoglobin 11.4 g/dL (13.0-17.5) 11.5 g/dL (13.0-17.5) Hematocrit 34.3 % (39.0-53.0) 34.2 % (39.0-53.0) Mean Corpuscular Volume 92 fL (79-100) 92 fL (79-100) Mean Corpuscular Hemoglobin 31 pg (25-35) 31 pg (25-35) Mean Corpuscular Hemoglobin Concent 33 g/dL (31-37) 34 g/dL (31-37) Red Cell Distribution Width 13.1 % (11.5-14.5) 13.3 % (11.5-14.5) Platelet Count 271 x10^3/uL (140-400) 278 x10^3/uL (140-400) Neutrophils (%) (Auto) 74 % (31-73) 66 % (31-73) Lymphocytes (%) (Auto) 16 % (24-48) 20 % (24-48) Monocytes (%) (Auto) 9 % (0-9) 11 % (0-9) Eosinophils (%) (Auto) 0 % (0-3) 2 % (0-3) Basophils (%) (Auto) 1 % (0-3) 1 % (0-3) Neutrophils # (Auto) 5.8 x10^3uL (1.8-7.7) 5.7 x10^3uL (1.8-7.7) Lymphocytes # (Auto) 1.2 x10^3/uL (1.0-4.8) 1.7 x10^3/uL (1.0-4.8) Monocytes # (Auto) 0.7 x10^3/uL (0.0-1.1) 1.0 x10^3/uL (0.0-1.1) Eosinophils # (Auto) 0.0 x10^3/uL (0.0-0.7) 0.1 x10^3/uL (0.0-0.7) Basophils # (Auto) 0.1 x10^3/uL (0.0-0.2) 0.1 x10^3/uL (0.0-0.2) Sodium Level 137 mmol/L (136-145) 139 mmol/L (136-145) Potassium Level 3.7 mmol/L (3.5-5.1) 3.5 mmol/L (3.5-5.1) Chloride Level 102 mmol/L (98-107) 101 mmol/L (98-107) Carbon Dioxide Level 29 mmol/L (21-32) 30 mmol/L (21-32) Anion Gap 6 (6-14) 8 (6-14) Blood Urea Nitrogen 22 mg/dL (8-26) 18 mg/dL (8-26) Creatinine 0.8 mg/dL (0.7-1.3) 0.8 mg/dL (0.7-1.3) Estimated GFR (Cockcroft-Gault) 96.4 96.4 BUN/Creatinine Ratio 28 (6-20) 23 (6-20) Glucose Level 124 mg/dL (70-99) 101 mg/dL (70-99) Calcium Level 8.4 mg/dL (8.5-10.1) 8.5 mg/dL (8.5-10.1) Total Bilirubin 0.4 mg/dL (0.2-1.0) 0.4 mg/dL (0.2-1.0) Aspartate Amino Transf (AST/SGOT) 97 U/L (15-37) 99 U/L (15-37) Alanine Aminotransferase (ALT/SGPT) 78 U/L (16-63) 84 U/L (16-63) Alkaline Phosphatase 47 U/L (46-116) 47 U/L (46-116) Total Protein 6.4 g/dL (6.4-8.2) 6.7 g/dL (6.4-8.2) Albumin 2.1 g/dL (3.4-5.0) 2.2 g/dL (3.4-5.0) Albumin/Globulin Ratio 0.5 (1.0-1.7) 0.5 (1.0-1.7) ECHOCARDIOGRAM ECHOCARDIOGRAM <Conclusion> Left ventricle systolic function is normal. The Ejection Fraction is 50-55%. Septal motion suggestive of post-operative state. Regional wall motion not well defined due to poor image quality. Grossly normal motion. The aortic valve is moderately sclerotic. The aortic valve is not well visualized. DATE: 01/17/17 1150 STRESS TEST STRESS TEST Conclusion 1. No evidence of ischemia by EKG on vasodilator testing. 2. Normal perfusion at stress. 3. Normal wall motion. EF 70% 4. Low risk study DATE: 01/17/17 1654 ASSESSMENT/PLAN ASSESSMENT/PLAN 1. Traumatic fall with C2 fracture: not tolerating rigid collar so soft collar presently 2. Atrial flutter: new onset controlled lowest in the 40s, Paroxysms alt with SR with first degree AV block with intermittent PVCs. 3. Known hx of bradycardia and mobitz type 1: hence propranolol was discontinued but per review was possibly taking it at home 4. POA CAP: per PCP 5. Chronic steroid therapy: suspicion of lupus and rheumatoid per review 6. Hx of past PE 7. HTN: controlled 8. HLP 9. Obesity 10. High risk for falls: multiple fall hx with injuries Recommendations 1. Hold any AV sana blocking agents for now with predisposition to bradycardia. Monitor rhythm. Will note for orthostasis 2. No syncope nor presyncope per details but will need MCOT and note any need of PPM. 3. He is a candidate for anticoagulation given his associated comorbid conditions but with recent events and trauma currently a poor candidate for anticoagulation. ASA for stroke prevention for now. 4. Recent echo at [facility], will obtain record. 5. TSH 6. CM for placement. No surgical plans. CHAU PALMER MD 11/08/18 1530: CARDIAC CONSULT ASSESSMENT/PLAN ASSESSMENT/PLAN Pt. seen and examined. Agree with above GEOLOGICAL SURVEY FIELD ASSISTANT note. Await OSH records. Plan for event monitor on discharge, then decide how to proceed if he needs pacer. Unclear if his fall is related to bradycardia. He is on significant amount of pain medicines, this fall may be a side-effect of his meds. On the other hand, if family feels like his falls have been significant and u nrelated to meds, then event monitor and pacer prn. ELIZABETH ESPINO APRN Nov 08, 2018 10:50 CHAU PALMER MD Nov 08, 2018 15:30
[2018-11-08 11:04] VITALS: BP 143/84
[2018-11-08] MEDS: ASPIRIN ENTERIC COATED 325 MG TABLET.DR. PO SCH (11:21)
--- NOTE | 2018-11-08 11:32 | NUR ---
SS following for discharge planning. SS reviewed pt chart. Pt is from home and is currently requiring oxygen. No discharge needs noted at this time. SS will continue to follow for discharge planning.
--- NOTE | 2018-11-08 11:33 | EKG ---
[facility] [address] [place] [address] Test Date: 2018-11-08 Test Time: 11:25:24 Pat Name: KENROY MCKINNEY Department: Room: 254 1 Gender: M Incident Analyst: RAJESH : 1950 Requested By: ELIZABETH ESPINO Order Number: [id number] Reading MD: Measurements Intervals [place] Rate: 74 P: [place]: QRS: -28 QRSD: 94 T: 7 QT: 392 QTc: 440 Interpretive Statements IRREGULAR RHYTHM, NO P-WAVE FOUND VENTRICULAR PREMATURE COMPLEX(ES) LEFTWARD AXIS R-S TRANSITION ZONE IN V LEADS DISPLACED TO THE RIGHT ABNORMAL ECG RI6.01 Unconfirmed report Compared to ECG 01/16/2017 14:34:46 First degree AV block no longer present T-wave abnormality no longer present
[2018-11-08] MEDS ORDERED: POTASSIUM CHLORIDE 20 MEQ TABLET.ER. PO ONE (11:45)
--- NOTE | 2018-11-08 12:40 | PDOC ---
SUBJECTIVE Subjective neck pain after fall at home 5 days ago OBJECTIVE Objective 68 yo male s/p fall 5 days ago at home with neck/upper back pain, transfered from [facility]. He was admitted there 4 days prior for a fall and neck pain. New neck fracture,C2, was admitted to the ICU, with rigid, now soft collar. Treated wtih Abx for pneumona, has had agitation and confuion problems over the last few days. Vital Signs Vital Signs Date Time Temp Pulse Resp B/P (MAP) Pulse Ox O2 Delivery O2 Flow Rate FiO2 11/08/18 11:22 93 Nasal Cannula 2.0 11/08/18 11:04 97.9 70 20 143/84 (103) 93 Nasal Cannula 2.0 97.9 11/08/18 10:06 78 163/109 11/08/18 08:00 Nasal Cannula 2.0 11/08/18 07:23 97.7 78 20 163/109 (127) 96 Nasal Cannula 2.0 97.7 11/08/18 06:25 19 92 Nasal Cannula 2.0 11/08/18 05:25 18 92 Nasal Cannula 2.0 11/08/18 02:49 98.0 63 16 115/80 (92) 92 Nasal Cannula 2.0 98.0 11/08/18 01:25 18 91 Nasal Cannula 2.0 11/07/18 23:37 98.2 59 20 105/73 (84) 91 Nasal Cannula 2.0 98.2 11/07/18 20:00 Nasal Cannula 2.0 11/07/18 19:30 97.9 56 18 167/87 (113) Nasal Cannula 2.0 97.9 11/07/18 18:36 95 Nasal Cannula 2.0 11/07/18 17:45 97.4 57 18 137/79 (98) 95 Nasal Cannula 2.0 97.4 I & O Intake and Output 11/08/18 06:59 Intake Total 120 ml Output Total 600 ml Balance -480 ml Intake Oral 120 ml Output Urine Total 600 ml # Voids 2 ASSESSMENT/PLAN Assessment/Plan 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 REC: maintain home meds as ordered, as long as able to take p.o. Consider COIL W[employer] REPAIR hydromorphone if npo COMMENT Lab Laboratory Tests Test 11/07/18 20:30 11/08/18 04:20 White Blood Count 7.8 x10^3/uL (4.0-11.0) 8.5 x10^3/uL (4.0-11.0) Red Blood Count 3.71 x10^6/uL (4.30-5.70) 3.72 x10^6/uL (4.30-5.70) Hemoglobin 11.4 g/dL (13.0-17.5) 11.5 g/dL (13.0-17.5) Hematocrit 34.3 % (39.0-53.0) 34.2 % (39.0-53.0) Mean Corpuscular Volume 92 fL (79-100) 92 fL (79-100) Mean Corpuscular Hemoglobin 31 pg (25-35) 31 pg (25-35) Mean Corpuscular Hemoglobin Concent 33 g/dL (31-37) 34 g/dL (31-37) Red Cell Distribution Width 13.1 % (11.5-14.5) 13.3 % (11.5-14.5) Platelet Count 271 x10^3/uL (140-400) 278 x10^3/uL (140-400) Neutrophils (%) (Auto) 74 % (31-73) 66 % (31-73) Lymphocytes (%) (Auto) 16 % (24-48) 20 % (24-48) Monocytes (%) (Auto) 9 % (0-9) 11 % (0-9) Eosinophils (%) (Auto) 0 % (0-3) 2 % (0-3) Basophils (%) (Auto) 1 % (0-3) 1 % (0-3) Neutrophils # (Auto) 5.8 x10^3uL (1.8-7.7) 5.7 x10^3uL (1.8-7.7) Lymphocytes # (Auto) 1.2 x10^3/uL (1.0-4.8) 1.7 x10^3/uL (1.0-4.8) Monocytes # (Auto) 0.7 x10^3/uL (0.0-1.1) 1.0 x10^3/uL (0.0-1.1) Eosinophils # (Auto) 0.0 x10^3/uL (0.0-0.7) 0.1 x10^3/uL (0.0-0.7) Basophils # (Auto) 0.1 x10^3/uL (0.0-0.2) 0.1 x10^3/uL (0.0-0.2) Sodium Level 137 mmol/L (136-145) 139 mmol/L (136-145) Potassium Level 3.7 mmol/L (3.5-5.1) 3.5 mmol/L (3.5-5.1) Chloride Level 102 mmol/L (98-107) 101 mmol/L (98-107) Carbon Dioxide Level 29 mmol/L (21-32) 30 mmol/L (21-32) Anion Gap 6 (6-14) 8 (6-14) Blood Urea Nitrogen 22 mg/dL (8-26) 18 mg/dL (8-26) Creatinine 0.8 mg/dL (0.7-1.3) 0.8 mg/dL (0.7-1.3) Estimated GFR (Cockcroft-Gault) 96.4 96.4 BUN/Creatinine Ratio 28 (6-20) 23 (6-20) Glucose Level 124 mg/dL (70-99) 101 mg/dL (70-99) Calcium Level 8.4 mg/dL (8.5-10.1) 8.5 mg/dL (8.5-10.1) Total Bilirubin 0.4 mg/dL (0.2-1.0) 0.4 mg/dL (0.2-1.0) Aspartate Amino Transf (AST/SGOT) 97 U/L (15-37) 99 U/L (15-37) Alanine Aminotransferase (ALT/SGPT) 78 U/L (16-63) 84 U/L (16-63) Alkaline Phosphatase 47 U/L (46-116) 47 U/L (46-116) Total Protein 6.4 g/dL (6.4-8.2) 6.7 g/dL (6.4-8.2) Albumin 2.1 g/dL (3.4-5.0) 2.2 g/dL (3.4-5.0) Albumin/Globulin Ratio 0.5 (1.0-1.7) 0.5 (1.0-1.7) Thyroid Stimulating Hormone (TSH) 8.145 uIU/mL (0.358-3.74) ABBIE VALENCIA MD Nov 08, 2018 12:40
[2018-11-08] MEDS: IPRATRPIUM/ALBUTEROL 0.5/2.5MG 3 ML NEBU. NEB SCH ×3 (12:59→20:18)
--- NOTE | 2018-11-08 13:01 | PDOC ---
PROGRESS NOTES Chief Complaint Chief Complaint acute on chronic neck pain, s/p fall and new cervical fracture, has had trouble with pain control, pneumonia and recent sepsis, cont abx course, prior pneumonia x2, and chest pain and bronchitis new atrial flutter, rate controlled, new minor diastolic CHF obesity BMI 37 autoimmune disease, NOS, rhematoid, CHF, chronic diastolic History of Present Illness History of Present Illness pain OK anxiety better, more alert than yesterday, slept OK cont current Dr. Mckee and Armida to see. brittany need SNU a Vitals Vitals Vital Signs Date Time Temp Pulse Resp B/P (MAP) Pulse Ox O2 Delivery O2 Flow Rate FiO2 11/08/18 11:22 93 Nasal Cannula 2.0 11/08/18 11:04 97.9 70 20 143/84 (103) 97.9 Physical Exam General: Alert, Oriented X3, Cooperative, No acute distress Heart: Other (YON border systolic murmur /) Lungs: Clear, Other Abdomen: Soft, No tenderness Extremities: No cyanosis, No edema Skin: Other (vitiligo, left elbow wound with dressing) Labs LABS Laboratory Tests Test 11/07/18 20:30 11/08/18 04:20 White Blood Count 7.8 x10^3/uL (4.0-11.0) 8.5 x10^3/uL (4.0-11.0) Red Blood Count 3.71 x10^6/uL (4.30-5.70) 3.72 x10^6/uL (4.30-5.70) Hemoglobin 11.4 g/dL (13.0-17.5) 11.5 g/dL (13.0-17.5) Hematocrit 34.3 % (39.0-53.0) 34.2 % (39.0-53.0) Mean Corpuscular Volume 92 fL (79-100) 92 fL (79-100) Mean Corpuscular Hemoglobin 31 pg (25-35) 31 pg (25-35) Mean Corpuscular Hemoglobin Concent 33 g/dL (31-37) 34 g/dL (31-37) Red Cell Distribution Width 13.1 % (11.5-14.5) 13.3 % (11.5-14.5) Platelet Count 271 x10^3/uL (140-400) 278 x10^3/uL (140-400) Neutrophils (%) (Auto) 74 % (31-73) 66 % (31-73) Lymphocytes (%) (Auto) 16 % (24-48) 20 % (24-48) Monocytes (%) (Auto) 9 % (0-9) 11 % (0-9) Eosinophils (%) (Auto) 0 % (0-3) 2 % (0-3) Basophils (%) (Auto) 1 % (0-3) 1 % (0-3) Neutrophils # (Auto) 5.8 x10^3uL (1.8-7.7) 5.7 x10^3uL (1.8-7.7) Lymphocytes # (Auto) 1.2 x10^3/uL (1.0-4.8) 1.7 x10^3/uL (1.0-4.8) Monocytes # (Auto) 0.7 x10^3/uL (0.0-1.1) 1.0 x10^3/uL (0.0-1.1) Eosinophils # (Auto) 0.0 x10^3/uL (0.0-0.7) 0.1 x10^3/uL (0.0-0.7) Basophils # (Auto) 0.1 x10^3/uL (0.0-0.2) 0.1 x10^3/uL (0.0-0.2) Sodium Level 137 mmol/L (136-145) 139 mmol/L (136-145) Potassium Level 3.7 mmol/L (3.5-5.1) 3.5 mmol/L (3.5-5.1) Chloride Level 102 mmol/L (98-107) 101 mmol/L (98-107) Carbon Dioxide Level 29 mmol/L (21-32) 30 mmol/L (21-32) Anion Gap 6 (6-14) 8 (6-14) Blood Urea Nitrogen 22 mg/dL (8-26) 18 mg/dL (8-26) Creatinine 0.8 mg/dL (0.7-1.3) 0.8 mg/dL (0.7-1.3) Estimated GFR (Cockcroft-Gault) 96.4 96.4 BUN/Creatinine Ratio 28 (6-20) 23 (6-20) Glucose Level 124 mg/dL (70-99) 101 mg/dL (70-99) Calcium Level 8.4 mg/dL (8.5-10.1) 8.5 mg/dL (8.5-10.1) Total Bilirubin 0.4 mg/dL (0.2-1.0) 0.4 mg/dL (0.2-1.0) Aspartate Amino Transf (AST/SGOT) 97 U/L (15-37) 99 U/L (15-37) Alanine Aminotransferase (ALT/SGPT) 78 U/L (16-63) 84 U/L (16-63) Alkaline Phosphatase 47 U/L (46-116) 47 U/L (46-116) Total Protein 6.4 g/dL (6.4-8.2) 6.7 g/dL (6.4-8.2) Albumin 2.1 g/dL (3.4-5.0) 2.2 g/dL (3.4-5.0) Albumin/Globulin Ratio 0.5 (1.0-1.7) 0.5 (1.0-1.7) Thyroid Stimulating Hormone (TSH) 8.145 uIU/mL (0.358-3.74) Review of Systems Review of Systems neck pain 9/10 weakness, some dyspnea, Comment Review of Relevant I have reviewed the following items sujit (where applicable) has been applied. Labs Laboratory Tests Test 11/07/18 20:30 11/08/18 04:20 White Blood Count 7.8 x10^3/uL (4.0-11.0) 8.5 x10^3/uL (4.0-11.0) Red Blood Count 3.71 x10^6/uL (4.30-5.70) 3.72 x10^6/uL (4.30-5.70) Hemoglobin 11.4 g/dL (13.0-17.5) 11.5 g/dL (13.0-17.5) Hematocrit 34.3 % (39.0-53.0) 34.2 % (39.0-53.0) Mean Corpuscular Volume 92 fL (79-100) 92 fL (79-100) Mean Corpuscular Hemoglobin 31 pg (25-35) 31 pg (25-35) Mean Corpuscular Hemoglobin Concent 33 g/dL (31-37) 34 g/dL (31-37) Red Cell Distribution Width 13.1 % (11.5-14.5) 13.3 % (11.5-14.5) Platelet Count 271 x10^3/uL (140-400) 278 x10^3/uL (140-400) Neutrophils (%) (Auto) 74 % (31-73) 66 % (31-73) Lymphocytes (%) (Auto) 16 % (24-48) 20 % (24-48) Monocytes (%) (Auto) 9 % (0-9) 11 % (0-9) Eosinophils (%) (Auto) 0 % (0-3) 2 % (0-3) Basophils (%) (Auto) 1 % (0-3) 1 % (0-3) Neutrophils # (Auto) 5.8 x10^3uL (1.8-7.7) 5.7 x10^3uL (1.8-7.7) Lymphocytes # (Auto) 1.2 x10^3/uL (1.0-4.8) 1.7 x10^3/uL (1.0-4.8) Monocytes # (Auto) 0.7 x10^3/uL (0.0-1.1) 1.0 x10^3/uL (0.0-1.1) Eosinophils # (Auto) 0.0 x10^3/uL (0.0-0.7) 0.1 x10^3/uL (0.0-0.7) Basophils # (Auto) 0.1 x10^3/uL (0.0-0.2) 0.1 x10^3/uL (0.0-0.2) Sodium Level 137 mmol/L (136-145) 139 mmol/L (136-145) Potassium Level 3.7 mmol/L (3.5-5.1) 3.5 mmol/L (3.5-5.1) Chloride Level 102 mmol/L (98-107) 101 mmol/L (98-107) Carbon Dioxide Level 29 mmol/L (21-32) 30 mmol/L (21-32) Anion Gap 6 (6-14) 8 (6-14) Blood Urea Nitrogen 22 mg/dL (8-26) 18 mg/dL (8-26) Creatinine 0.8 mg/dL (0.7-1.3) 0.8 mg/dL (0.7-1.3) Estimated GFR (Cockcroft-Gault) 96.4 96.4 BUN/Creatinine Ratio 28 (6-20) 23 (6-20) Glucose Level 124 mg/dL (70-99) 101 mg/dL (70-99) Calcium Level 8.4 mg/dL (8.5-10.1) 8.5 mg/dL (8.5-10.1) Total Bilirubin 0.4 mg/dL (0.2-1.0) 0.4 mg/dL (0.2-1.0) Aspartate Amino Transf (AST/SGOT) 97 U/L (15-37) 99 U/L (15-37) Alanine Aminotransferase (ALT/SGPT) 78 U/L (16-63) 84 U/L (16-63) Alkaline Phosphatase 47 U/L (46-116) 47 U/L (46-116) Total Protein 6.4 g/dL (6.4-8.2) 6.7 g/dL (6.4-8.2) Albumin 2.1 g/dL (3.4-5.0) 2.2 g/dL (3.4-5.0) Albumin/Globulin Ratio 0.5 (1.0-1.7) 0.5 (1.0-1.7) Thyroid Stimulating Hormone (TSH) 8.145 uIU/mL (0.358-3.74) Laboratory Tests Test 11/07/18 20:30 11/08/18 04:20 White Blood Count 7.8 x10^3/uL (4.0-11.0) 8.5 x10^3/uL (4.0-11.0) Red Blood Count 3.71 x10^6/uL (4.30-5.70) 3.72 x10^6/uL (4.30-5.70) Hemoglobin 11.4 g/dL (13.0-17.5) 11.5 g/dL (13.0-17.5) Hematocrit 34.3 % (39.0-53.0) 34.2 % (39.0-53.0) Mean Corpuscular Volume 92 fL (79-100) 92 fL (79-100) Mean Corpuscular Hemoglobin 31 pg (25-35) 31 pg (25-35) Mean Corpuscular Hemoglobin Concent 33 g/dL (31-37) 34 g/dL (31-37) Red Cell Distribution Width 13.1 % (11.5-14.5) 13.3 % (11.5-14.5) Platelet Count 271 x10^3/uL (140-400) 278 x10^3/uL (140-400) Neutrophils (%) (Auto) 74 % (31-73) 66 % (31-73) Lymphocytes (%) (Auto) 16 % (24-48) 20 % (24-48) Monocytes (%) (Auto) 9 % (0-9) 11 % (0-9) Eosinophils (%) (Auto) 0 % (0-3) 2 % (0-3) Basophils (%) (Auto) 1 % (0-3) 1 % (0-3) Neutrophils # (Auto) 5.8 x10^3uL (1.8-7.7) 5.7 x10^3uL (1.8-7.7) Lymphocytes # (Auto) 1.2 x10^3/uL (1.0-4.8) 1.7 x10^3/uL (1.0-4.8) Monocytes # (Auto) 0.7 x10^3/uL (0.0-1.1) 1.0 x10^3/uL (0.0-1.1) Eosinophils # (Auto) 0.0 x10^3/uL (0.0-0.7) 0.1 x10^3/uL (0.0-0.7) Basophils # (Auto) 0.1 x10^3/uL (0.0-0.2) 0.1 x10^3/uL (0.0-0.2) Sodium Level 137 mmol/L (136-145) 139 mmol/L (136-145) Potassium Level 3.7 mmol/L (3.5-5.1) 3.5 mmol/L (3.5-5.1) Chloride Level 102 mmol/L (98-107) 101 mmol/L (98-107) Carbon Dioxide Level 29 mmol/L (21-32) 30 mmol/L (21-32) Anion Gap 6 (6-14) 8 (6-14) Blood Urea Nitrogen 22 mg/dL (8-26) 18 mg/dL (8-26) Creatinine 0.8 mg/dL (0.7-1.3) 0.8 mg/dL (0.7-1.3) Estimated GFR (Cockcroft-Gault) 96.4 96.4 BUN/Creatinine Ratio 28 (6-20) 23 (6-20) Glucose Level 124 mg/dL (70-99) 101 mg/dL (70-99) Calcium Level 8.4 mg/dL (8.5-10.1) 8.5 mg/dL (8.5-10.1) Total Bilirubin 0.4 mg/dL (0.2-1.0) 0.4 mg/dL (0.2-1.0) Aspartate Amino Transf (AST/SGOT) 97 U/L (15-37) 99 U/L (15-37) Alanine Aminotransferase (ALT/SGPT) 78 U/L (16-63) 84 U/L (16-63) Alkaline Phosphatase 47 U/L (46-116) 47 U/L (46-116) Total Protein 6.4 g/dL (6.4-8.2) 6.7 g/dL (6.4-8.2) Albumin 2.1 g/dL (3.4-5.0) 2.2 g/dL (3.4-5.0) Albumin/Globulin Ratio 0.5 (1.0-1.7) 0.5 (1.0-1.7) Thyroid Stimulating Hormone (TSH) 8.145 uIU/mL (0.358-3.74) Medications Current Medications Hydromorphone HCl (Dilaudid) 8 mg PRN Q4HRS PRN PO PAIN; Start 11/07/18 at 18:00; Status Cancel Quetiapine Fumarate (SEROquel) 50 mg QHS PO Last administered on 11/07/18at 20:22; Start 11/07/18 at 21:00 Oxycodone/ Acetaminophen (Percocet 10/325) 1 tab PRN Q4HRS PRN PO severe pain Last administered on 11/08/18 11:22; Start 11/07/18 at 18:15 Atorvastatin Calcium (Lipitor) 40 mg QHS PO ; Start 11/07/18 at 21:00 Cyclobenzaprine HCl (Flexeril) 10 mg BID PO Last administered on 11/08/18 10:02; Start 11/07/18 at 21:00 Divalproex Sodium (Depakote Er) 500 mg BID PO Last administered on 11/08/18 10:03; Start 11/07/18 at 21:00 Docusate Sodium (Colace) 100 mg PRN BID PRN PO CONSTIPATION; Start 11/07/18 at 18:15 Prednisone (Prednisone) 20 mg DAILY PO Last administered on 11/08/18 10:02; Start 11/08/18 at 09:00 Non-Formulary Medication (Fluvoxamine Maleate ) 300 mg DAILY06 PO ; Start 11/08/18 at 06:00; Status UNV Hydromorphone HCl (Dilaudid) 8 mg PRN Q4HRS PRN PO PAIN Last administered on 11/08/18 08:13; Start 11/07/18 at 18:30 Lisinopril (Prinivil) 5 mg DAILY PO Last administered on 11/08/18 10:06; Start 11/08/18 at 09:00 Lorazepam (Ativan) 2 mg HS PO Last administered on 11/07/18 20:22; Start 9 at 21:00 Fish Oil (Fish Oil) 1,000 mg TID PO Last administered on 11/08/18 10:02; Start 11/07/18 at 21:00 Primidone (Mysoline) 250 mg BID PO Last administered on 11/08/18 10:03; Start 11/07/18 at 21:00 Ceftriaxone Sodium (Rocephin) 1 gm Q24H IVP Last administered on 11/07/18 23:30; Start 11/07/18 at 23:00 Doxycycline Hyclate (Vibra-Tab) 100 mg BID PO Last administered on 11/08/18 10:02; Start 11/07/18 at 23:00 Albuterol/ Ipratropium (Duoneb) 3 ml RTQID NEB ; Start 11/08/18 at 08:00 Enoxaparin Sodium (Lovenox Per Pharmacy Prophylaxis Dosing) 1 each PRN DAILY PRN MC SEE COMMENTS; Start 11/07/18 at 22:15 Enoxaparin Sodium (Lovenox 40mg Syringe) 40 mg QHS SQ Last administered on 11/07/18at 23:30; Start 11/07/18 at 23:00 Lactobacillus Rhamnosus (Culturelle) 1 cap BID PO Last administered on 11/08/18at 10:03; Start 11/08/18 at 09:00 Aspirin (Ecotrin) 325 mg DAILYWBKFT PO Last administered on 11/08/18at 11:21; Start 11/08/18 at 11:00 Potassium Chloride (Klor-Con) 20 meq 1X ONCE PO ; Start 11/08/18 at 11:45; Stop 11/08/18 at 11:46; Status DC Active Scripts Active Lisinopril 5 Mg Tablet 5 Mg PO DAILY Atorvastatin Calcium 40 Mg Tablet 40 Mg PO QHS Reported Cyclobenzaprine Hcl 10 Mg Tablet 1 Tab PO BID Dilaudid (Hydromorphone Hcl) 8 Mg Tablet 1 Tab PO Q4-6HRS PRN Ativan (Lorazepam) 2 Mg Tablet 2 Mg PO HS Vitamin E (Vitamin E (Dl,Tocopheryl Acet)) 400 Unit Capsule 400 Unit PO Senna (Sennosides) 8.6 Mg Tablet 8.6 Mg PO PRN Colace (Docusate Sodium) 100 Mg Capsule 1 Cap PO BID PRN Fluvoxamine Maleate 100 Mg Tablet 300 Mg PO DAILY06 Depakote Er (Divalproex Sodium) 500 Mg Tab.er.24h 1 Tab PO BID Prednisone 20 Mg Tablet 20 Mg PO DAILY Percocet 10-325 Mg Tablet (Oxycodone/Acetaminophen) 1 Each Tablet 1 Tab PO Q4HRS Mysoline (Primidone) 250 Mg Tablet 250 Mg PO BID Equinunk 3 1,000 Mg Softgel (Equinunk-3 Fatty Acids/Fish Oil) 1 Each Capsule 1 Each PO TID Vitals/I & O Vital Sign - Last 24 Hours 11/07/18 11/07/18 11/07/18 11/07/18 17:45 18:36 19:30 20:00 Temp 97.4 97.9 97.4 97.9 Pulse 57 56 Resp 18 18 B/P (MAP) 137/79 (98) 167/87 (113) Pulse Ox 95 95 O2 Delivery Nasal Cannula Nasal Cannula Nasal Cannula Nasal Cannula O2 Flow Rate 2.0 2.0 2.0 2.0 11/07/18 11/08/18 11/08/18 11/08/18 23:37 01:25 02:49 05:25 Temp 98.2 98.0 98.2 98.0 Pulse 59 63 Resp 20 18 16 18 B/P (MAP) 105/73 (84) 115/80 (92) Pulse Ox 91 91 92 92 O2 Delivery Nasal Cannula Nasal Cannula Nasal Cannula Nasal Cannula O2 Flow Rate 2.0 2.0 2.0 2.0 11/08/18 11/08/18 11/08/18 11/08/18 06:25 07:23 08:00 10:06 Temp 97.7 97.7 Pulse 78 78 Resp 19 20 B/P (MAP) 163/109 (127) 163/109 Pulse Ox 92 96 O2 Delivery Nasal Cannula Nasal Cannula Nasal Cannula O2 Flow Rate 2.0 2.0 2.0 11/08/18 11/08/18 11:04 11:22 Temp 97.9 97.9 Pulse 70 Resp 20 B/P (MAP) 143/84 (103) Pulse Ox 93 93 O2 Delivery Nasal Cannula Nasal Cannula O2 Flow Rate 2.0 2.0 Intake and Output 11/07/18 11/07/18 11/08/18 15:00 23:00 07:00 Intake Total 120 ml Output Total 600 ml Balance 120 ml -600 ml YOSEF QUINONES MD Nov 08, 2018 13:01
[2018-11-08 13:11] LABS: FREE T4 0.88 ng/dL (0.76-1.46)
[2018-11-08 14:41] VITALS: BP 158/108
--- NOTE | 2018-11-08 14:56 | NUR ---
PT WORKED WITH THERAPY AND SUPINE 143/96 HR 70, STANDING 147/101 HR 91.
[2018-11-08] MEDS: LEVOTHYROXINE 75 MCG TABLET PO SCH (17:50)
[2018-11-08 19:30] VITALS: BP 163/91
[2018-11-08] MEDS: LORazepam 1 MG TABLET PO SCH (21:03)
[2018-11-08] MEDS: ATORVASTATIN CALCIUM 40 MG TABLET. PO SCH (21:04)
[2018-11-08] MEDS: QUEtiapine 25 MG TABLET. PO SCH (21:04)
[2018-11-08] MEDS: ENOXAPARIN 40 MG/0.4 ML SYRINGE. SQ SCH (21:05)
[2018-11-08] MEDS: cefTRIAXone IV Push 1 GM VIAL. IVP SCH (21:06)
[2018-11-08 23:28] VITALS: BP 133/84
[2018-11-09] MEDS: HYDROmorphone 4 MG TABLET PO PRN ×5 (02:34→22:27)
[2018-11-09 03:00] VITALS: BP 145/78
[2018-11-09] MEDS: oxyCODONE/APAP 10/325 1 TAB TABLET PO PRN ×5 (03:09→22:28)
[2018-11-09] MEDS: FLUVOXAMINE MALEATE 300 MG PO SCH (06:00)
[2018-11-09] MEDS: LEVOTHYROXINE 75 MCG TABLET PO SCH (06:03)
--- NOTE | 2018-11-09 06:04 | CONS ---
DATE OF CONSULTATION: 11/08/2018 ATTENDING PHYSICIAN: Kathy Rapp MD REASON FOR CONSULTATION: The patient seen in pulmonary consultation at the request of Dr. Rapp for abnormal CT chest. HISTORY OF PRESENT ILLNESS: The patient is a 68-year-old that fell at home and suffered neck fracture. He was transferred from [facility] because of insurance reason. He had a fall 4 days ago with neck fracture, was admitted to the intensive care unit initially, he has a rigid collar in place. He underwent CT chest, I reviewed, there is basilar atelectasis, there is right clavicular fracture. I was asked to see him in consultation. The patient has never smoked, does not wear oxygen at home. He does not have a cough. Denies any other symptoms. PAST MEDICAL HISTORY: Hypertension, anxiety, bipolar disorder, osteoarthritis. PAST SURGICAL HISTORY: Status post cholecystectomy. FAMILY HISTORY: Coronary artery disease. SOCIAL HISTORY: He has never smoked. REVIEW OF SYSTEMS: As indicated above, otherwise, a 10-point system was reviewed and negative. CURRENT MEDICATIONS: List was reviewed. PHYSICAL EXAMINATION: GENERAL: Morbid obese individual in no respiratory distress. BMI was 37, currently on 2 liters. HEENT: Eyes, the sclerae were nonicteric. NECK: Jugular venous distention could not be assessed secondary to body habitus. CHEST: Full expansion. LUNGS: Adequate airway flow anteriorly. No wheezes. CARDIOVASCULAR: Regular rate and rhythm with S1, S2, no S3. ABDOMEN: Obese. EXTREMITIES: Minimal edema. NEUROLOGIC: The patient was awake, alert, following commands. A detailed neuro exam was not performed. LABORATORY DATA: Reviewed. White count was normal. Hemoglobin and hematocrit were noted. BUN and creatinine were normal. CT chest as indicated above was just noted, was actually obtained a year ago on 01/05/2018. IMPRESSION: 1. Pneumonia, suspect secondary from fall and pulmonary contusion. 2. Recent fall, suffering a neck fracture. 3. [id number] neck pain. 4. Morbid obesity. 5. Autoimmune disease, nonspecified. PLAN: 1. Recommend aggressive pulmonary hygiene. 2. Continue current ceftriaxone. 3. Incentive spirometry. 4. Chest x-ray. I do appreciate the privilege of sharing in the patient's care. CASIMIRO SPENCE MD DR: LILY/sonam JOB#: [id number] / [id number]
[2018-11-09 07:00] VITALS: BP 155/96
[2018-11-09] MEDS: IPRATRPIUM/ALBUTEROL 0.5/2.5MG 3 ML NEBU. NEB SCH ×4 (08:00→20:35)
--- NOTE | 2018-11-09 08:07 | RAD ---
AP chest x-ray COMPARISON: CT chest January 05, 2018. HISTORY: Pulmonary infiltrate. FINDINGS: Patient is rotated to the right. There is slight dextroposition of the heart and mediastinum likely due to patient rotation although there was some mild chronic dextroposition of prior CT imaging. Median sternotomy and coronary bypass. Old anterior right rib deformities again demonstrated. Old left lateral chronic rib deformities again noted. No pneumothorax. No pleural effusions. Indistinct densities at the bilateral lung bases may represent atelectasis or infiltrates. IMPRESSION: Bilateral lower lobe airspace disease. Cardiomegaly and mild dextroposition of the heart and mediastinum stable to prior imaging. Electronically signed by: Siva Shanks MD (11/09/2018 8:05 AM) [facility]
--- NOTE | 2018-11-09 08:11 | PDOC ---
PULMONARY PROGRESS NOTES Subjective has occ cough, has albright, not much sob, not on home 02 Vitals Vital Signs Date Time Temp Pulse Resp B/P (MAP) Pulse Ox O2 Delivery O2 Flow Rate FiO2 11/09/18 08:01 96 Nasal Cannula 2.0 11/09/18 04:09 18 11/09/18 03:00 97.9 60 145/78 (100) 97.9 ROS: No Nausea General: Alert HEENT: Other (perrl nc at) Lungs: Crackles, Other Cardiovascular: S1, S2 Abdomen: Soft, Non-tender Neuro Exam: Alert Extremities: Other (edema) Skin: Warm Labs Laboratory Tests Test 11/07/18 20:30 11/08/18 04:20 White Blood Count 7.8 x10^3/uL (4.0-11.0) 8.5 x10^3/uL (4.0-11.0) Red Blood Count 3.71 x10^6/uL (4.30-5.70) 3.72 x10^6/uL (4.30-5.70) Hemoglobin 11.4 g/dL (13.0-17.5) 11.5 g/dL (13.0-17.5) Hematocrit 34.3 % (39.0-53.0) 34.2 % (39.0-53.0) Mean Corpuscular Volume 92 fL (79-100) 92 fL (79-100) Mean Corpuscular Hemoglobin 31 pg (25-35) 31 pg (25-35) Mean Corpuscular Hemoglobin Concent 33 g/dL (31-37) 34 g/dL (31-37) Red Cell Distribution Width 13.1 % (11.5-14.5) 13.3 % (11.5-14.5) Platelet Count 271 x10^3/uL (140-400) 278 x10^3/uL (140-400) Neutrophils (%) (Auto) 74 % (31-73) 66 % (31-73) Lymphocytes (%) (Auto) 16 % (24-48) 20 % (24-48) Monocytes (%) (Auto) 9 % (0-9) 11 % (0-9) Eosinophils (%) (Auto) 0 % (0-3) 2 % (0-3) Basophils (%) (Auto) 1 % (0-3) 1 % (0-3) Neutrophils # (Auto) 5.8 x10^3uL (1.8-7.7) 5.7 x10^3uL (1.8-7.7) Lymphocytes # (Auto) 1.2 x10^3/uL (1.0-4.8) 1.7 x10^3/uL (1.0-4.8) Monocytes # (Auto) 0.7 x10^3/uL (0.0-1.1) 1.0 x10^3/uL (0.0-1.1) Eosinophils # (Auto) 0.0 x10^3/uL (0.0-0.7) 0.1 x10^3/uL (0.0-0.7) Basophils # (Auto) 0.1 x10^3/uL (0.0-0.2) 0.1 x10^3/uL (0.0-0.2) Sodium Level 137 mmol/L (136-145) 139 mmol/L (136-145) Potassium Level 3.7 mmol/L (3.5-5.1) 3.5 mmol/L (3.5-5.1) Chloride Level 102 mmol/L (98-107) 101 mmol/L (98-107) Carbon Dioxide Level 29 mmol/L (21-32) 30 mmol/L (21-32) Anion Gap 6 (6-14) 8 (6-14) Blood Urea Nitrogen 22 mg/dL (8-26) 18 mg/dL (8-26) Creatinine 0.8 mg/dL (0.7-1.3) 0.8 mg/dL (0.7-1.3) Estimated GFR (Cockcroft-Gault) 96.4 96.4 BUN/Creatinine Ratio 28 (6-20) 23 (6-20) Glucose Level 124 mg/dL (70-99) 101 mg/dL (70-99) Calcium Level 8.4 mg/dL (8.5-10.1) 8.5 mg/dL (8.5-10.1) Total Bilirubin 0.4 mg/dL (0.2-1.0) 0.4 mg/dL (0.2-1.0) Aspartate Amino Transf (AST/SGOT) 97 U/L (15-37) 99 U/L (15-37) Alanine Aminotransferase (ALT/SGPT) 78 U/L (16-63) 84 U/L (16-63) Alkaline Phosphatase 47 U/L (46-116) 47 U/L (46-116) Total Protein 6.4 g/dL (6.4-8.2) 6.7 g/dL (6.4-8.2) Albumin 2.1 g/dL (3.4-5.0) 2.2 g/dL (3.4-5.0) Albumin/Globulin Ratio 0.5 (1.0-1.7) 0.5 (1.0-1.7) Thyroid Stimulating Hormone (TSH) 8.145 uIU/mL (0.358-3.74) Free Thyroxine 0.88 ng/dL (0.76-1.46) Free Triiodothyronine (T3) pg/mL 1.93 pg/mL (2.18-3.98) Medications Active Scripts Medications Dose Route/Sig Max Daily Dose Days Date Category Cyclobenzaprine Hcl 10 Mg Tablet 1 Tab PO BID 11/07/18 Reported Lisinopril 5 Mg Tablet 5 Mg PO DAILY 01/18/17 Rx Atorvastatin Calcium 40 Mg Tablet 40 Mg PO QHS 01/18/17 Rx Dilaudid (Hydromorphone Hcl) 8 Mg Tablet 1 Tab PO Q4-6HRS PRN 01/16/17 Reported Ativan (Lorazepam) 2 Mg Tablet 2 Mg PO HS 01/16/17 Reported Vitamin E (Vitamin E (Dl,Tocopheryl Acet)) 400 Unit Capsule 400 Unit PO 10/04/16 Reported Senna (Sennosides) 8.6 Mg Tablet 8.6 Mg PO PRN 09/16/16 Reported Colace (Docusate Sodium) 100 Mg Capsule 1 Cap PO BID PRN 09/16/16 Reported Fluvoxamine Maleate 100 Mg Tablet 300 Mg PO DAILY06 09/16/16 Reported Depakote Er (Divalproex Sodium) 500 Mg Tab.er.24h 1 Tab PO BID 09/16/16 Reported Prednisone 20 Mg Tablet 20 Mg PO DAILY 09/29/15 Reported Percocet 10-325 Mg Tablet (Oxycodone/Acetaminophen) 1 Each Tablet 1 Tab PO Q4HRS 06/09/15 Reported Mysoline (Primidone) 250 Mg Tablet 250 Mg PO BID 07/22/13 Reported [place] 3 1,000 Mg Softgel ([place]-3 Fatty Acids/Fish Oil) 1 Each Capsule 1 Each PO TID 07/22/13 Reported Comments cxr reviewed Bilateral lower lobe airspace disease. Cardiomegaly and mild dextroposition of the heart and mediastinum stable to prior imaging. Impression . IMPRESSION: 1. Pneumonia, suspect secondary from fall and pulmonary contusion. 2. Recent fall, suffering a neck fracture. 3. [id number] neck pain. 4. Morbid obesity. 5. Autoimmune disease, nonspecified. 6. aflutter, chf Plan . PLAN: 1. Recommend aggressive pulmonary hygiene. 2. Continue current ceftriaxone. 3. Incentive spirometry. 4. Chest x-ray reviewed. 5. 02 titration discussed w pt and rn МАРИЯ MAJANO MD Nov 09, 2018 08:11
[2018-11-09] MEDS: DOXYCYCLINE HYCLATE 100 MG TABLET PO SCH ×2 (08:29→21:17)
[2018-11-09] MEDS: ASPIRIN ENTERIC COATED 325 MG TABLET.DR. PO SCH (08:29)
[2018-11-09] MEDS: predniSONE 20 MG TABLET PO SCH (08:29)
[2018-11-09] MEDS: DIVALPROEX EXTENDED RELEASE 500 MG TAB.ER.24H. PO SCH ×2 (08:29→21:17)
[2018-11-09] MEDS: LACTOBACILLUS RHAMNOSUS GG 1 CAPSULE. PO SCH ×2 (08:29→21:17)
[2018-11-09] MEDS: PRIMIDONE 250 MG TABLET PO SCH ×2 (08:29→21:17)
[2018-11-09] MEDS: OMEGA-3 FATTY ACIDS/FISH OIL 1,000 MG CAPSULE. PO SCH ×3 (08:30→21:00)
[2018-11-09] MEDS: LISINOPRIL 5 MG TABLET. PO SCH (08:30)
[2018-11-09] MEDS: CYCLOBENZAPRINE 10 MG TABLET. PO SCH ×2 (08:30→21:17)
--- NOTE | 2018-11-09 10:12 | PDOC ---
PROGRESS NOTES Chief Complaint Chief Complaint acute on chronic neck pain, s/p fall and new cervical fracture, has had trouble with pain control, pneumonia and recent sepsis, cont abx course, prior pneumonia x2, and chest pain and bronchitis new atrial flutter, rate controlled, new minor diastolic CHF obesity BMI 37 autoimmune disease, NOS, rhematoid, CHF, chronic diastolic History of Present Illness History of Present Illness pain OK, headache and neck pain, his is here today, had discussion about hospice, he would likely qualify for home palliative care at this point. anxiety better, cont current Dr. Mckee and Armida have seen plan is home health, a Vitals Vitals Vital Signs Date Time Temp Pulse Resp B/P (MAP) Pulse Ox O2 Delivery O2 Flow Rate FiO2 11/09/18 08:30 63 155/96 11/09/18 08:01 96 Nasal Cannula 2.0 11/09/18 07:00 97.9 24 97.9 Physical Exam General: Alert, Oriented X3, Cooperative, No acute distress Heart: Regular rate, Other (YON border systolic murmur 08/07) Lungs: Clear, Other Abdomen: Soft, No tenderness Extremities: No cyanosis, No edema Skin: Other (vitiligo, left elbow wound with dressing) Review of Systems Review of Systems no stool 2 days, no event, pain in neck and headache Comment Review of Relevant I have reviewed the following items sujit (where applicable) has been applied. Labs Laboratory Tests Test 11/07/18 20:30 11/08/18 04:20 White Blood Count 7.8 x10^3/uL (4.0-11.0) 8.5 x10^3/uL (4.0-11.0) Red Blood Count 3.71 x10^6/uL (4.30-5.70) 3.72 x10^6/uL (4.30-5.70) Hemoglobin 11.4 g/dL (13.0-17.5) 11.5 g/dL (13.0-17.5) Hematocrit 34.3 % (39.0-53.0) 34.2 % (39.0-53.0) Mean Corpuscular Volume 92 fL (79-100) 92 fL (79-100) Mean Corpuscular Hemoglobin 31 pg (25-35) 31 pg (25-35) Mean Corpuscular Hemoglobin Concent 33 g/dL (31-37) 34 g/dL (31-37) Red Cell Distribution Width 13.1 % (11.5-14.5) 13.3 % (11.5-14.5) Platelet Count 271 x10^3/uL (140-400) 278 x10^3/uL (140-400) Neutrophils (%) (Auto) 74 % (31-73) 66 % (31-73) Lymphocytes (%) (Auto) 16 % (24-48) 20 % (24-48) Monocytes (%) (Auto) 9 % (0-9) 11 % (0-9) Eosinophils (%) (Auto) 0 % (0-3) 2 % (0-3) Basophils (%) (Auto) 1 % (0-3) 1 % (0-3) Neutrophils # (Auto) 5.8 x10^3uL (1.8-7.7) 5.7 x10^3uL (1.8-7.7) Lymphocytes # (Auto) 1.2 x10^3/uL (1.0-4.8) 1.7 x10^3/uL (1.0-4.8) Monocytes # (Auto) 0.7 x10^3/uL (0.0-1.1) 1.0 x10^3/uL (0.0-1.1) Eosinophils # (Auto) 0.0 x10^3/uL (0.0-0.7) 0.1 x10^3/uL (0.0-0.7) Basophils # (Auto) 0.1 x10^3/uL (0.0-0.2) 0.1 x10^3/uL (0.0-0.2) Sodium Level 137 mmol/L (136-145) 139 mmol/L (136-145) Potassium Level 3.7 mmol/L (3.5-5.1) 3.5 mmol/L (3.5-5.1) Chloride Level 102 mmol/L (98-107) 101 mmol/L (98-107) Carbon Dioxide Level 29 mmol/L (21-32) 30 mmol/L (21-32) Anion Gap 6 (6-14) 8 (6-14) Blood Urea Nitrogen 22 mg/dL (8-26) 18 mg/dL (8-26) Creatinine 0.8 mg/dL (0.7-1.3) 0.8 mg/dL (0.7-1.3) Estimated GFR (Cockcroft-Gault) 96.4 96.4 BUN/Creatinine Ratio 28 (6-20) 23 (6-20) Glucose Level 124 mg/dL (70-99) 101 mg/dL (70-99) Calcium Level 8.4 mg/dL (8.5-10.1) 8.5 mg/dL (8.5-10.1) Total Bilirubin 0.4 mg/dL (0.2-1.0) 0.4 mg/dL (0.2-1.0) Aspartate Amino Transf (AST/SGOT) 97 U/L (15-37) 99 U/L (15-37) Alanine Aminotransferase (ALT/SGPT) 78 U/L (16-63) 84 U/L (16-63) Alkaline Phosphatase 47 U/L (46-116) 47 U/L (46-116) Total Protein 6.4 g/dL (6.4-8.2) 6.7 g/dL (6.4-8.2) Albumin 2.1 g/dL (3.4-5.0) 2.2 g/dL (3.4-5.0) Albumin/Globulin Ratio 0.5 (1.0-1.7) 0.5 (1.0-1.7) Thyroid Stimulating Hormone (TSH) 8.145 uIU/mL (0.358-3.74) Free Thyroxine 0.88 ng/dL (0.76-1.46) Free Triiodothyronine (T3) pg/mL 1.93 pg/mL (2.18-3.98) Medications Current Medications Hydromorphone HCl (Dilaudid) 8 mg PRN Q4HRS PRN PO PAIN; Start 11/07/18 at 18:00; Status Cancel Quetiapine Fumarate (SEROquel) 50 mg QHS PO Last administered on 11/08/18at 21:04; Start 11/07/18 at 21:00 Oxycodone/ Acetaminophen (Percocet 10/325) 1 tab PRN Q4HRS PRN PO severe pain Last administered on 11/09/18 07:47; Start 11/07/18 at 18:15 Atorvastatin Calcium (Lipitor) 40 mg QHS PO Last administered on 11/08/18 21:04; Start 11/07/18 at 21:00 Cyclobenzaprine HCl (Flexeril) 10 mg BID PO Last administered on 11/09/18 08:30; Start 11/07/18 at 21:00 Divalproex Sodium (Depakote Er) 500 mg BID PO Last administered on 11/09/18 08:29; Start 11/07/18 at 21:00 Docusate Sodium (Colace) 100 mg PRN BID PRN PO CONSTIPATION; Start 11/07/18 at 18:15 Prednisone (Prednisone) 20 mg DAILY PO Last administered on 11/09/18 08:29; Start 11/08/18 at 09:00 Non-Formulary Medication (Fluvoxamine Maleate ) 300 mg DAILY06 PO ; Start 11/08/18 at 06:00; Stop 11/09/18 at 08:34; Status DC Hydromorphone HCl (Dilaudid) 8 mg PRN Q4HRS PRN PO PAIN Last administered on 11/09/18 06:03; Start 11/07/18 at 18:30 Lisinopril (Prinivil) 5 mg DAILY PO Last administered on 11/09/18 08:30; Start 11/08/18 at 09:00 Lorazepam (Ativan) 2 mg HS PO Last administered on 11/08/18 21:03; Start 11/07/18 at 21:00 Fish Oil (Fish Oil) 1,000 mg TID PO Last administered on 11/09/18 08:30; Start 11/07/18 at 21:00 Primidone (Mysoline) 250 mg BID PO Last administered on 11/09/18 08:29; Start 11/07/18 at 21:00 Ceftriaxone Sodium (Rocephin) 1 gm Q24H IVP Last administered on 11/08/18 21:06; Start 11/07/18 at 23:00 Doxycycline Hyclate (Vibra-Tab) 100 mg BID PO Last administered on 11/09/18 08:29; Start 11/07/18 at 23:00 Albuterol/ Ipratropium (Duoneb) 3 ml RTQID NEB Last administered on 11/09/18at 08:00; Start 11/08/18 at 08:00 Enoxaparin Sodium (Lovenox Per Pharmacy Prophylaxis Dosing) 1 each PRN DAILY PRN [facility] SEE COMMENTS; Start 11/07/18 at 22:15 Enoxaparin Sodium (Lovenox 40mg Syringe) 40 mg QHS SQ Last administered on 11/08/18at 21:05; Start 11/07/18 at 23:00 Lactobacillus Rhamnosus (Culturelle) 1 cap BID PO Last administered on 11/09/18at 08:29; Start 11/08/18 at 09:00 Aspirin (Ecotrin) 325 mg DAILYWBKFT PO Last administered on 11/09/18at 08:29; Start 11/08/18 at 11:00 Potassium Chloride (Klor-Con) 20 meq 1X ONCE PO Last administered on 11/08/18at 15:48; Start 11/08/18 at 11:45; Stop 11/08/18 at 11:46; Status DC Levothyroxine Sodium (Synthroid) 75 mcg DAILY06 PO Last administered on 11/09/18at 06:03; Start 11/08/18 at 16:00 Non-Formulary Medication (Fluvoxamine Maleate ) 100 mg TID PO ; Start 11/09/18 at 09:00 Active Scripts Active Lisinopril 5 Mg Tablet 5 Mg PO DAILY Atorvastatin Calcium 40 Mg Tablet 40 Mg PO QHS Reported Cyclobenzaprine Hcl 10 Mg Tablet 1 Tab PO BID Dilaudid (Hydromorphone Hcl) 8 Mg Tablet 1 Tab PO Q4-6HRS PRN Ativan (Lorazepam) 2 Mg Tablet 2 Mg PO HS Vitamin E (Vitamin E (Dl,Tocopheryl Acet)) 400 Unit Capsule 400 Unit PO Senna (Sennosides) 8.6 Mg Tablet 8.6 Mg PO PRN Colace (Docusate Sodium) 100 Mg Capsule 1 Cap PO BID PRN Fluvoxamine Maleate 100 Mg Tablet 300 Mg PO DAILY06 Depakote Er (Divalproex Sodium) 500 Mg Tab.er.24h 1 Tab PO BID Prednisone 20 Mg Tablet 20 Mg PO DAILY Percocet 10-325 Mg Tablet (Oxycodone/Acetaminophen) 1 Each Tablet 1 Tab PO Q4HRS Mysoline (Primidone) 250 Mg Tablet 250 Mg PO BID [place] 3 1,000 Mg Softgel ([place]-3 Fatty Acids/Fish Oil) 1 Each Capsule 1 Each PO TID Vitals/I & O Vital Sign - Last 24 Hours 11/08/18 11/08/18 11/08/18 11/08/18 11:04 11:22 13:03 14:41 Temp 97.9 98.1 97.9 98.1 Pulse 70 74 Resp 20 16 B/P (MAP) 143/84 (103) 158/108 (125) Pulse Ox 93 93 94 92 O2 Delivery Nasal Cannula Nasal Cannula Nasal Cannula Nasal Cannula O2 Flow Rate 2.0 2.0 2.0 2.0 11/08/18 11/08/18 11/08/18 11/08/18 15:47 16:17 19:30 20:00 Temp 97.7 97.7 Pulse 72 Resp 20 B/P (MAP) 163/91 (115) Pulse Ox 92 95 O2 Delivery Nasal Cannula Nasal Cannula Nasal Cannula Nasal Cannula O2 Flow Rate 2.0 2.0 2.0 2.0 11/08/18 11/08/18 11/08/18 11/09/18 20:18 21:05 23:28 03:00 Temp 97.7 97.9 97.7 97.9 Pulse 78 60 Resp 18 16 16 B/P (MAP) 133/84 (100) 145/78 (100) Pulse Ox 95 94 95 O2 Delivery Nasal Cannula Nasal Cannula Nasal Cannula Nasal Cannula O2 Flow Rate 2.0 2.0 2.0 2.0 11/09/18 11/09/18 11/09/18 11/09/18 03:09 04:09 07:00 07:47 Temp 97.9 97.9 Pulse 63 Resp 18 18 24 B/P (MAP) 155/96 (115) Pulse Ox 94 95 O2 Delivery Nasal Cannula Nasal Cannula Nasal Cannula Nasal Cannula O2 Flow Rate 2.0 2.0 2.0 2.0 11/09/18 11/09/18 08:01 08:30 Pulse 63 B/P (MAP) 155/96 Pulse Ox 96 O2 Delivery Nasal Cannula O2 Flow Rate 2.0 Intake and Output 11/08/18 11/08/18 11/09/18 15:00 23:00 07:00 Intake Total 360 ml 60 ml Output Total 325 ml 175 ml 150 ml Balance -325 ml 185 ml -90 ml YOSEF QUINONES MD Nov 09, 2018 10:12
[2018-11-09] MEDS ORDERED: DOCUSATE SODIUM 100 MG CAPSULE. PO PRN (10:15)
--- NOTE | 2018-11-09 10:25 | PDOC ---
PROGRESS NOTES Subjective Subjective He c/o headaches. Objective Objective Vital Signs Date Time Temp Pulse Resp B/P (MAP) Pulse Ox O2 Delivery O2 Flow Rate FiO2 11/09/18 08:30 63 155/96 11/09/18 08:01 96 Nasal Cannula 2.0 11/09/18 07:00 97.9 24 97.9 Intake and Output 11/09/18 07:00 Intake Total 420 ml Output Total 650 ml Balance -230 ml Intake Oral 420 ml Output Urine Total 650 ml Stool Total 0 ml # Voids 1 Physical Exam Physical Exam He is awake,supine in bed and not wearing cervical collar. He apparently having small amount of urine output at a time without any dysuria. Plan Plan of Care To try fioricet for headache and to get him up as tolerated with cervical collar and lumbar corset,he had at home. Comment Review of Relevant I have reviewed the following items sujit (where applicable) has been applied. Labs Laboratory Tests Test 11/07/18 20:30 11/08/18 04:20 White Blood Count 7.8 x10^3/uL (4.0-11.0) 8.5 x10^3/uL (4.0-11.0) Red Blood Count 3.71 x10^6/uL (4.30-5.70) 3.72 x10^6/uL (4.30-5.70) Hemoglobin 11.4 g/dL (13.0-17.5) 11.5 g/dL (13.0-17.5) Hematocrit 34.3 % (39.0-53.0) 34.2 % (39.0-53.0) Mean Corpuscular Volume 92 fL (79-100) 92 fL (79-100) Mean Corpuscular Hemoglobin 31 pg (25-35) 31 pg (25-35) Mean Corpuscular Hemoglobin Concent 33 g/dL (31-37) 34 g/dL (31-37) Red Cell Distribution Width 13.1 % (11.5-14.5) 13.3 % (11.5-14.5) Platelet Count 271 x10^3/uL (140-400) 278 x10^3/uL (140-400) Neutrophils (%) (Auto) 74 % (31-73) 66 % (31-73) Lymphocytes (%) (Auto) 16 % (24-48) 20 % (24-48) Monocytes (%) (Auto) 9 % (0-9) 11 % (0-9) Eosinophils (%) (Auto) 0 % (0-3) 2 % (0-3) Basophils (%) (Auto) 1 % (0-3) 1 % (0-3) Neutrophils # (Auto) 5.8 x10^3uL (1.8-7.7) 5.7 x10^3uL (1.8-7.7) Lymphocytes # (Auto) 1.2 x10^3/uL (1.0-4.8) 1.7 x10^3/uL (1.0-4.8) Monocytes # (Auto) 0.7 x10^3/uL (0.0-1.1) 1.0 x10^3/uL (0.0-1.1) Eosinophils # (Auto) 0.0 x10^3/uL (0.0-0.7) 0.1 x10^3/uL (0.0-0.7) Basophils # (Auto) 0.1 x10^3/uL (0.0-0.2) 0.1 x10^3/uL (0.0-0.2) Sodium Level 137 mmol/L (136-145) 139 mmol/L (136-145) Potassium Level 3.7 mmol/L (3.5-5.1) 3.5 mmol/L (3.5-5.1) Chloride Level 102 mmol/L (98-107) 101 mmol/L (98-107) Carbon Dioxide Level 29 mmol/L (21-32) 30 mmol/L (21-32) Anion Gap 6 (6-14) 8 (6-14) Blood Urea Nitrogen 22 mg/dL (8-26) 18 mg/dL (8-26) Creatinine 0.8 mg/dL (0.7-1.3) 0.8 mg/dL (0.7-1.3) Estimated GFR (Cockcroft-Gault) 96.4 96.4 BUN/Creatinine Ratio 28 (6-20) 23 (6-20) Glucose Level 124 mg/dL (70-99) 101 mg/dL (70-99) Calcium Level 8.4 mg/dL (8.5-10.1) 8.5 mg/dL (8.5-10.1) Total Bilirubin 0.4 mg/dL (0.2-1.0) 0.4 mg/dL (0.2-1.0) Aspartate Amino Transf (AST/SGOT) 97 U/L (15-37) 99 U/L (15-37) Alanine Aminotransferase (ALT/SGPT) 78 U/L (16-63) 84 U/L (16-63) Alkaline Phosphatase 47 U/L (46-116) 47 U/L (46-116) Total Protein 6.4 g/dL (6.4-8.2) 6.7 g/dL (6.4-8.2) Albumin 2.1 g/dL (3.4-5.0) 2.2 g/dL (3.4-5.0) Albumin/Globulin Ratio 0.5 (1.0-1.7) 0.5 (1.0-1.7) Thyroid Stimulating Hormone (TSH) 8.145 uIU/mL (0.358-3.74) Free Thyroxine 0.88 ng/dL (0.76-1.46) Free Triiodothyronine (T3) pg/mL 1.93 pg/mL (2.18-3.98) Medications Current Medications Hydromorphone HCl (Dilaudid) 8 mg PRN Q4HRS PRN PO PAIN; Start 11/07/18 at 18:00; Status Cancel Quetiapine Fumarate (SEROquel) 50 mg QHS PO Last administered on 11/08/18 21:04; Start 11/07/18 at 21:00 Oxycodone/ Acetaminophen (Percocet 10/325) 1 tab PRN Q4HRS PRN PO severe pain Last administered on 11/09/18 07:47; Start 11/07/18 at 18:15 Atorvastatin Calcium (Lipitor) 40 mg QHS PO Last administered on 11/08/18 21:04; Start 11/07/18 at 21:00 Cyclobenzaprine HCl (Flexeril) 10 mg BID PO Last administered on 11/09/18 08:30; Start 11/07/18 at 21:00 Divalproex Sodium (Depakote Er) 500 mg BID PO Last administered on 11/09/18 08:29; Start 11/07/18 at 21:00 Docusate Sodium (Colace) 100 mg PRN BID PRN PO CONSTIPATION; Start 11/07/18 at 18:15 Prednisone (Prednisone) 20 mg DAILY PO Last administered on 11/09/18 08:29; Start 11/08/18 at 09:00 Non-Formulary Medication (Fluvoxamine Maleate ) 300 mg DAILY06 PO ; Start 11/08/18 at 06:00; Stop 11/09/18 at 08:34; Status DC Hydromorphone HCl (Dilaudid) 8 mg PRN Q4HRS PRN PO PAIN Last administered on 11/09/18 06:03; Start 11/07/18 at 18:30 Lisinopril (Prinivil) 5 mg DAILY PO Last administered on 11/09/18 08:30; Start 11/08/18 at 09:00; Stop 11/09/18 at 10:01; Status DC Lorazepam (Ativan) 2 mg HS PO Last administered on 11/08/18 21:03; Start 11/07/18 at 21:00 Fish Oil (Fish Oil) 1,000 mg TID PO Last administered on 11/09/18 08:30; Start 11/07/18 at 21:00 Primidone (Mysoline) 250 mg BID PO Last administered on 11/09/18 08:29; Start 11/07/18 at 21:00 Ceftriaxone Sodium (Rocephin) 1 gm Q24H IVP Last administered on 11/08/18 21:06; Start 11/07/18 at 23:00 Doxycycline Hyclate (Vibra-Tab) 100 mg BID PO Last administered on 11/09/18 08:29; Start 11/07/18 at 23:00 Albuterol/ Ipratropium (Duoneb) 3 ml RTQID NEB Last administered on 11/09/18 08:00; Start 11/08/18 at 08:00 Enoxaparin Sodium (Lovenox Per Pharmacy Prophylaxis Dosing) 1 each PRN DAILY PRN [facility] SEE COMMENTS; Start 11/07/18 at 22:15 Enoxaparin Sodium (Lovenox 40mg Syringe) 40 mg QHS SQ Last administered on 6/7/19at 21:05; Start 11/07/18 at 23:00 Lactobacillus Rhamnosus (Culturelle) 1 cap BID PO Last administered on 11/09/18at 08:29; Start 11/08/18 at 09:00 Aspirin (Ecotrin) 325 mg DAILYWBKFT PO Last administered on 11/09/18at 08:29; Start 11/08/18 at 11:00 Potassium Chloride (Klor-Con) 20 meq 1X ONCE PO Last administered on 11/08/18at 15:48; Start 11/08/18 at 11:45; Stop 11/08/18 at 11:46; Status DC Levothyroxine Sodium (Synthroid) 75 mcg DAILY06 PO Last administered on 11/09/18at 06:03; Start 11/08/18 at 16:00; Stop 11/09/18 at 10:00; Status DC Non-Formulary Medication (Fluvoxamine Maleate ) 100 mg TID PO ; Start 11/09/18 at 09:00 Levothyroxine Sodium (Synthroid) 75 mcg DAILY06 PO ; Start 11/10/18 at 06:00 Lisinopril (Prinivil) 10 mg DAILY PO ; Start 11/10/18 at 09:00 Lisinopril (Prinivil) 5 mg 1X ONCE PO ; Start 11/09/18 at 11:00; Stop 11/09/18 at 11:01 Polyethylene Glycol (miraLAX PACKET) 17 gm DAILY PO ; Start 11/09/18 at 10:00 Docusate Sodium (Colace) 100 mg PRN DAILY PRN PO CONSTIPATION; Start 11/09/18 at 10:15 Docusate Sodium (Colace) 100 mg DAILY PO ; Start 11/09/18 at 11:00 Active Scripts Active Lisinopril 5 Mg Tablet 5 Mg PO DAILY Atorvastatin Calcium 40 Mg Tablet 40 Mg PO QHS Reported Cyclobenzaprine Hcl 10 Mg Tablet 1 Tab PO BID Dilaudid (Hydromorphone Hcl) 8 Mg Tablet 1 Tab PO Q4-6HRS PRN Ativan (Lorazepam) 2 Mg Tablet 2 Mg PO HS Vitamin E (Vitamin E (Dl,Tocopheryl Acet)) 400 Unit Capsule 400 Unit PO Senna (Sennosides) 8.6 Mg Tablet 8.6 Mg PO PRN Colace (Docusate Sodium) 100 Mg Capsule 1 Cap PO BID PRN Fluvoxamine Maleate 100 Mg Tablet 300 Mg PO DAILY06 Depakote Er (Divalproex Sodium) 500 Mg Tab.er.24h 1 Tab PO BID Prednisone 20 Mg Tablet 20 Mg PO DAILY Percocet 10-325 Mg Tablet (Oxycodone/Acetaminophen) 1 Each Tablet 1 Tab PO Q4HRS Mysoline (Primidone) 250 Mg Tablet 250 Mg PO BID Wiggins 3 1,000 Mg Softgel (Wiggins-3 Fatty Acids/Fish Oil) 1 Each Capsule 1 Each PO TID Vitals/I & O Vital Sign - Last 24 Hours 11/08/18 11/08/18 11/08/18 11/08/18 11:04 11:22 13:03 14:41 Temp 97.9 98.1 97.9 98.1 Pulse 70 74 Resp 20 16 B/P (MAP) 143/84 (103) 158/108 (125) Pulse Ox 93 93 94 92 O2 Delivery Nasal Cannula Nasal Cannula Nasal Cannula Nasal Cannula O2 Flow Rate 2.0 2.0 2.0 2.0 11/08/18 11/08/18 11/08/18 11/08/18 15:47 16:17 19:30 20:00 Temp 97.7 97.7 Pulse 72 Resp 20 B/P (MAP) 163/91 (115) Pulse Ox 92 95 O2 Delivery Nasal Cannula Nasal Cannula Nasal Cannula Nasal Cannula O2 Flow Rate 2.0 2.0 2.0 2.0 11/08/18 11/08/18 11/08/18 11/09/18 20:18 21:05 23:28 03:00 Temp 97.7 97.9 97.7 97.9 Pulse 78 60 Resp 18 16 16 B/P (MAP) 133/84 (100) 145/78 (100) Pulse Ox 95 94 95 O2 Delivery Nasal Cannula Nasal Cannula Nasal Cannula Nasal Cannula O2 Flow Rate 2.0 2.0 2.0 2.0 11/09/18 11/09/18 11/09/18 11/09/18 03:09 04:09 07:00 07:47 Temp 97.9 97.9 Pulse 63 Resp 18 18 24 B/P (MAP) 155/96 (115) Pulse Ox 94 95 O2 Delivery Nasal Cannula Nasal Cannula Nasal Cannula Nasal Cannula O2 Flow Rate 2.0 2.0 2.0 2.0 11/09/18 11/09/18 08:01 08:30 Pulse 63 B/P (MAP) 155/96 Pulse Ox 96 O2 Delivery Nasal Cannula O2 Flow Rate 2.0 Intake and Output 11/08/18 11/08/18 11/09/18 15:00 23:00 07:00 Intake Total 360 ml 60 ml Output Total 325 ml 175 ml 150 ml Balance -325 ml 185 ml -90 ml JUSTIN BIRD MD Nov 09, 2018 10:25
[2018-11-09] MEDS: DOCUSATE SODIUM 100 MG CAPSULE. PO SCH (10:28)
[2018-11-09] MEDS: BUTALB/APAP/CAFEIN 50/325/40MG TABLET. PO PRN ×2 (10:29→21:17)
[2018-11-09] MEDS: POLYETHYLENE GLYCOL 3350 17 GM PACKET. PO SCH (10:32)
[2018-11-09 11:00] VITALS: BP 152/90
[2018-11-09] MEDS ORDERED: LISINOPRIL 5 MG TABLET. PO ONE (11:00)
--- NOTE | 2018-11-09 11:23 | CONS ---
DATE OF CONSULTATION: 11/08/2018 ATTENDING PHYSICIAN: Kathy Rapp M.D. The patient was seen at the request of Dr. Rapp for rehab evaluation. HISTORY OF PRESENT ILLNESS: This is a 68-year-old male admitted on 11/07/2018 as per transfer from [facility] where he was admitted about 4 days ago with fall and neck pain. The patient was found with C2 fracture and no displacement and also being treated for pneumonia and agitation and confusion. The patient was transferred here secondary to his health insurance reasons as his is an employee of this [facility]. He apparently had chronic neck and lower back pain, being followed by Dr. Maynor Mckee in the pain clinic. He admits to headaches. The patient is also with known hypertension, anxiety, bipolar disorder, depression, and osteoarthritis. He lives with his , had stairs for him to manage. The patient is status post cholecystectomy. Family history of coronary artery disease. He is not known allergic to any medication. The patient admits more discomfort using cervical collar, which is a soft one right now. PHYSICAL EXAMINATION: Today revealed a middle-aged male. He is alert, oriented to time, place, person and circumstance and follows commands appropriately. I have examined him when he is supine in bed with soft cervical collar. No significant tenderness to palpation over cervical paraspinal muscles or posterior shoulder girdle muscles. He has some tenderness to palpation over sacroiliac joint area and lumbar paraspinal muscles. Straight leg raising test is negative bilaterally. He had 5/5 grade muscle strength in his extremities. Deep tendon reflexes are decreased overall with absent ankle jerks. He had equal perception of touch and pinprick sensation bilaterally. He had some stiffness of both hips. I have not tested his transfers or ambulation skills at this time, but he apparently got up this afternoon. No significant cervical paraspinal muscle spasm was noted at this time. He had multiple skin bruises. ASSESSMENT: A middle-aged male with chronic neck and lower back pain with recent fall and C2 fracture without any displacement. No clinical evidence of ongoing cervical or lumbar radiculopathy, clinical evidence of peripheral neuropathy. The patient is also with known hypertension, anxiety, bipolar disorder, depression. RECOMMENDATIONS: I agree with the plan for physical therapy and occupational therapy to get him up as tolerated. He needs to use a cervical collar for sure when he is moving his neck. It can be taken off when he is supine in bed for comfort briefly. Dr. Rapp, I appreciate asking me to participate in the care of this interesting patient. I will be glad to follow him with you as needed by the rehabilitation. JUSTIN BIRD MD DR: JENIFFER/sonam JOB#: [id number] / [id number]
[2018-11-09 15:00] VITALS: BP 138/97
[2018-11-09 19:44] VITALS: BP 142/84
--- NOTE | 2018-11-09 19:47 | NUR ---
bladder scanned patient for Dr. Huffman at 1045 and post void residule was 6 ml/ Addendum: 11/09/18 at 1949 by EMMANUEL VILLEGAS RN that is 67 ml.
[2018-11-09] MEDS: ATORVASTATIN CALCIUM 40 MG TABLET. PO SCH (21:17)
[2018-11-09] MEDS: LORazepam 1 MG TABLET PO SCH (21:17)
[2018-11-09] MEDS: QUEtiapine 25 MG TABLET. PO SCH (21:17)
[2018-11-09] MEDS: ENOXAPARIN 40 MG/0.4 ML SYRINGE. SQ SCH (21:18)
[2018-11-09] MEDS: cefTRIAXone IV Push 1 GM VIAL. IVP SCH (21:18)
[2018-11-09 22:32] VITALS: BP 169/91
[2018-11-10 03:22] VITALS: BP 129/90
[2018-11-10] MEDS: HYDROmorphone 4 MG TABLET PO PRN ×5 (03:38→20:50)
[2018-11-10] MEDS: oxyCODONE/APAP 10/325 1 TAB TABLET PO PRN ×5 (05:01→23:57)
[2018-11-10] MEDS: LEVOTHYROXINE 75 MCG TABLET PO SCH (05:01)
[2018-11-10 05:37] LABS: BASO # 0.1 x10^3/uL (0.0-0.2); BASO % 1 % (0-3); EOS # 0.3 x10^3/uL (0.0-0.7); EOS % 3 % (0-3); HEMATOCRIT 35.9 % (39.0-53.0); LYMPH # 1.7 x10^3/uL (1.0-4.8); LYMPH % 21 % (24-48); MEAN CORPUSCULAR HEMOGLOBIN 31 pg (25-35); MEAN CORPUSCULAR HGB CONC 34 g/dL (31-37); MEAN CORPUSCULAR VOLUME 93 fL (79-100); MONO # 0.6 x10^3/uL (0.0-1.1); MONO % 8 % (0-9); NEUT # 5.5 x10^3uL (1.8-7.7); NEUT % 67 % (31-73); PLATELET COUNT 317 x10^3/uL (140-400); RED BLOOD COUNT 3.87 x10^6/uL (4.30-5.70); RED CELL DISTRIBUTION WIDTH 13.4 % (11.5-14.5); WHITE BLOOD COUNT 8.1 x10^3/uL (4.0-11.0)
[2018-11-10 05:49] LABS: CALCIUM 8.5 mg/dL (8.5-10.1); CREATININE 0.7 mg/dL (0.7-1.3); GFR 112.5; POTASSIUM 3.9 mmol/L (3.5-5.1)
[2018-11-10] MEDS: BUTALB/APAP/CAFEIN 50/325/40MG TABLET. PO PRN ×2 (06:01→19:22)
[2018-11-10 07:00] VITALS: BP 155/89
[2018-11-10] MEDS: IPRATRPIUM/ALBUTEROL 0.5/2.5MG 3 ML NEBU. NEB SCH ×4 (07:45→19:55)
--- NOTE | 2018-11-10 07:52 | PDOC ---
PULMONARY PROGRESS NOTES Subjective no sob, has occ cough, no albright, not on home 02, able to walk Vitals Vital Signs Date Time Temp Pulse Resp B/P (MAP) Pulse Ox O2 Delivery O2 Flow Rate FiO2 11/10/18 07:46 94 Room Air 11/10/18 06:01 18 11/10/18 03:22 97.5 69 129/90 (103) 97.5 11/09/18 20:18 2.0 ROS: No Nausea General: Alert HEENT: Other (perrl nc at) Lungs: Crackles, Other Cardiovascular: S1, S2 Abdomen: Soft, Non-tender Neuro Exam: Alert Extremities: Other (edema) Skin: Warm Labs Laboratory Tests Test 11/10/18 04:30 White Blood Count 8.1 x10^3/uL (4.0-11.0) Red Blood Count 3.87 x10^6/uL (4.30-5.70) Hemoglobin 12.0 g/dL (13.0-17.5) Hematocrit 35.9 % (39.0-53.0) Mean Corpuscular Volume 93 fL (79-100) Mean Corpuscular Hemoglobin 31 pg (25-35) Mean Corpuscular Hemoglobin Concent 34 g/dL (31-37) Red Cell Distribution Width 13.4 % (11.5-14.5) Platelet Count 317 x10^3/uL (140-400) Neutrophils (%) (Auto) 67 % (31-73) Lymphocytes (%) (Auto) 21 % (24-48) Monocytes (%) (Auto) 8 % (0-9) Eosinophils (%) (Auto) 3 % (0-3) Basophils (%) (Auto) 1 % (0-3) Neutrophils # (Auto) 5.5 x10^3uL (1.8-7.7) Lymphocytes # (Auto) 1.7 x10^3/uL (1.0-4.8) Monocytes # (Auto) 0.6 x10^3/uL (0.0-1.1) Eosinophils # (Auto) 0.3 x10^3/uL (0.0-0.7) Basophils # (Auto) 0.1 x10^3/uL (0.0-0.2) Sodium Level 139 mmol/L (136-145) Potassium Level 3.9 mmol/L (3.5-5.1) Chloride Level 102 mmol/L (98-107) Carbon Dioxide Level 32 mmol/L (21-32) Anion Gap 5 (6-14) Blood Urea Nitrogen 10 mg/dL (8-26) Creatinine 0.7 mg/dL (0.7-1.3) Estimated GFR (Cockcroft-Gault) 112.5 Glucose Level 91 mg/dL (70-99) Calcium Level 8.5 mg/dL (8.5-10.1) Laboratory Tests Test 11/10/18 04:30 White Blood Count 8.1 x10^3/uL (4.0-11.0) Red Blood Count 3.87 x10^6/uL (4.30-5.70) Hemoglobin 12.0 g/dL (13.0-17.5) Hematocrit 35.9 % (39.0-53.0) Mean Corpuscular Volume 93 fL (79-100) Mean Corpuscular Hemoglobin 31 pg (25-35) Mean Corpuscular Hemoglobin Concent 34 g/dL (31-37) Red Cell Distribution Width 13.4 % (11.5-14.5) Platelet Count 317 x10^3/uL (140-400) Neutrophils (%) (Auto) 67 % (31-73) Lymphocytes (%) (Auto) 21 % (24-48) Monocytes (%) (Auto) 8 % (0-9) Eosinophils (%) (Auto) 3 % (0-3) Basophils (%) (Auto) 1 % (0-3) Neutrophils # (Auto) 5.5 x10^3uL (1.8-7.7) Lymphocytes # (Auto) 1.7 x10^3/uL (1.0-4.8) Monocytes # (Auto) 0.6 x10^3/uL (0.0-1.1) Eosinophils # (Auto) 0.3 x10^3/uL (0.0-0.7) Basophils # (Auto) 0.1 x10^3/uL (0.0-0.2) Sodium Level 139 mmol/L (136-145) Potassium Level 3.9 mmol/L (3.5-5.1) Chloride Level 102 mmol/L (98-107) Carbon Dioxide Level 32 mmol/L (21-32) Anion Gap 5 (6-14) Blood Urea Nitrogen 10 mg/dL (8-26) Creatinine 0.7 mg/dL (0.7-1.3) Estimated GFR (Cockcroft-Gault) 112.5 Glucose Level 91 mg/dL (70-99) Calcium Level 8.5 mg/dL (8.5-10.1) Medications Active Scripts Medications Dose Route/Sig Max Daily Dose Days Date Category Cyclobenzaprine Hcl 10 Mg Tablet 1 Tab PO BID 11/07/18 Reported Lisinopril 5 Mg Tablet 5 Mg PO DAILY 01/18/17 Rx Atorvastatin Calcium 40 Mg Tablet 40 Mg PO QHS 01/18/17 Rx Dilaudid (Hydromorphone Hcl) 8 Mg Tablet 1 Tab PO Q4-6HRS PRN 01/16/17 Reported Ativan (Lorazepam) 2 Mg Tablet 2 Mg PO HS 01/16/17 Reported Vitamin E (Vitamin E (Dl,Tocopheryl Acet)) 400 Unit Capsule 400 Unit PO 10/04/16 Reported Senna (Sennosides) 8.6 Mg Tablet 8.6 Mg PO PRN 09/16/16 Reported Colace (Docusate Sodium) 100 Mg Capsule 1 Cap PO BID PRN 09/16/16 Reported Fluvoxamine Maleate 100 Mg Tablet 300 Mg PO DAILY06 09/16/16 Reported Depakote Er (Divalproex Sodium) 500 Mg Tab.er.24h 1 Tab PO BID 09/16/16 Reported Prednisone 20 Mg Tablet 20 Mg PO DAILY 09/29/15 Reported Percocet 10-325 Mg Tablet (Oxycodone/Acetaminophen) 1 Each Tablet 1 Tab PO Q4HRS 06/09/15 Reported Mysoline (Primidone) 250 Mg Tablet 250 Mg PO BID 07/22/13 Reported [place] 3 1,000 Mg Softgel ([place]-3 Fatty Acids/Fish Oil) 1 Each Capsule 1 Each PO TID 07/22/13 Reported Comments cxr reviewed Bilateral lower lobe airspace disease. Cardiomegaly and mild dextroposition of the heart and mediastinum stable to prior imaging. Impression . IMPRESSION: 1. Pneumonia, suspect secondary from fall and pulmonary contusion. 2. Recent fall, suffering a neck fracture. 3. Zfydn-ae-smardxb neck pain. 4. Morbid obesity. 5. Autoimmune disease, nonspecified. 6. aflutter, chf Plan . PLAN: 1. Recommend aggressive pulmonary hygiene. 2. ceftriaxone, may change to augmentin for 5 days. 3. Incentive spirometry. 4. Chest x-ray reviewed. 5. 02 titration 6. lovenox for dvt prophylaxis discussed w pt and rn МАРИЯ MAJANO MD Nov 10, 2018 07:52
[2018-11-10] MEDS: DOXYCYCLINE HYCLATE 100 MG TABLET PO SCH ×2 (08:28→20:35)
[2018-11-10] MEDS: POLYETHYLENE GLYCOL 3350 17 GM PACKET. PO SCH (08:28)
[2018-11-10] MEDS: ASPIRIN ENTERIC COATED 325 MG TABLET.DR. PO SCH (08:28)
[2018-11-10] MEDS: DOCUSATE SODIUM 100 MG CAPSULE. PO SCH (08:29)
[2018-11-10] MEDS: LACTOBACILLUS RHAMNOSUS GG 1 CAPSULE. PO SCH ×2 (08:29→20:35)
[2018-11-10] MEDS: PRIMIDONE 250 MG TABLET PO SCH ×2 (08:29→20:35)
[2018-11-10] MEDS: predniSONE 20 MG TABLET PO SCH (08:29)
[2018-11-10] MEDS: DIVALPROEX EXTENDED RELEASE 500 MG TAB.ER.24H. PO SCH ×2 (08:29→20:35)
[2018-11-10] MEDS: CYCLOBENZAPRINE 10 MG TABLET. PO SCH ×2 (08:30→20:35)
[2018-11-10] MEDS: OMEGA-3 FATTY ACIDS/FISH OIL 1,000 MG CAPSULE. PO SCH ×3 (08:32→20:35)
[2018-11-10] MEDS: LISINOPRIL 10 MG TABLET PO SCH (08:43)
[2018-11-10 11:00] VITALS: BP 143/89
[2018-11-10 15:00] VITALS: BP 135/101
--- NOTE | 2018-11-10 18:59 | PDOC ---
PROGRESS NOTES Chief Complaint Chief Complaint acute on chronic neck pain, s/p fall and new cervical fracture, has had trouble with pain control, pneumonia and recent sepsis, cont abx course, prior pneumonia x2, and chest pain and bronchitis new atrial flutter, rate controlled, new minor diastolic CHF obesity BMI 37 autoimmune disease, NOS, rhematoid, CHF, chronic diastolic History of Present Illness History of Present Illness pain better, , now more headache than neck pain, may be able to DC soon, would benefit from hospital bed at the house, may need a palliative care referral for home, anxiety better, cont current Dr. Mckee and Armida have seen plan is home health, a Vitals Vitals Vital Signs Date Time Temp Pulse Resp B/P (MAP) Pulse Ox O2 Delivery O2 Flow Rate FiO2 11/10/18 17:47 Room Air 11/10/18 16:10 95 11/10/18 15:00 97.5 79 16 135/101 (112) 97.5 11/09/18 20:18 2.0 Physical Exam General: Alert, Oriented X3, Cooperative, No acute distress Heart: Regular rate, Other (YON border systolic murmur 08/07) Lungs: Other (better, rales, ) Abdomen: Soft, No tenderness Extremities: No cyanosis, No edema Skin: Other (vitiligo, left elbow wound with dressing) Labs LABS Laboratory Tests Test 11/10/18 04:30 White Blood Count 8.1 x10^3/uL (4.0-11.0) Red Blood Count 3.87 x10^6/uL (4.30-5.70) Hemoglobin 12.0 g/dL (13.0-17.5) Hematocrit 35.9 % (39.0-53.0) Mean Corpuscular Volume 93 fL (79-100) Mean Corpuscular Hemoglobin 31 pg (25-35) Mean Corpuscular Hemoglobin Concent 34 g/dL (31-37) Red Cell Distribution Width 13.4 % (11.5-14.5) Platelet Count 317 x10^3/uL (140-400) Neutrophils (%) (Auto) 67 % (31-73) Lymphocytes (%) (Auto) 21 % (24-48) Monocytes (%) (Auto) 8 % (0-9) Eosinophils (%) (Auto) 3 % (0-3) Basophils (%) (Auto) 1 % (0-3) Neutrophils # (Auto) 5.5 x10^3uL (1.8-7.7) Lymphocytes # (Auto) 1.7 x10^3/uL (1.0-4.8) Monocytes # (Auto) 0.6 x10^3/uL (0.0-1.1) Eosinophils # (Auto) 0.3 x10^3/uL (0.0-0.7) Basophils # (Auto) 0.1 x10^3/uL (0.0-0.2) Sodium Level 139 mmol/L (136-145) Potassium Level 3.9 mmol/L (3.5-5.1) Chloride Level 102 mmol/L (98-107) Carbon Dioxide Level 32 mmol/L (21-32) Anion Gap 5 (6-14) Blood Urea Nitrogen 10 mg/dL (8-26) Creatinine 0.7 mg/dL (0.7-1.3) Estimated GFR (Cockcroft-Gault) 112.5 Glucose Level 91 mg/dL (70-99) Calcium Level 8.5 mg/dL (8.5-10.1) Comment Review of Relevant I have reviewed the following items sujit (where applicable) has been applied. Labs Laboratory Tests Test 11/10/18 04:30 White Blood Count 8.1 x10^3/uL (4.0-11.0) Red Blood Count 3.87 x10^6/uL (4.30-5.70) Hemoglobin 12.0 g/dL (13.0-17.5) Hematocrit 35.9 % (39.0-53.0) Mean Corpuscular Volume 93 fL (79-100) Mean Corpuscular Hemoglobin 31 pg (25-35) Mean Corpuscular Hemoglobin Concent 34 g/dL (31-37) Red Cell Distribution Width 13.4 % (11.5-14.5) Platelet Count 317 x10^3/uL (140-400) Neutrophils (%) (Auto) 67 % (31-73) Lymphocytes (%) (Auto) 21 % (24-48) Monocytes (%) (Auto) 8 % (0-9) Eosinophils (%) (Auto) 3 % (0-3) Basophils (%) (Auto) 1 % (0-3) Neutrophils # (Auto) 5.5 x10^3uL (1.8-7.7) Lymphocytes # (Auto) 1.7 x10^3/uL (1.0-4.8) Monocytes # (Auto) 0.6 x10^3/uL (0.0-1.1) Eosinophils # (Auto) 0.3 x10^3/uL (0.0-0.7) Basophils # (Auto) 0.1 x10^3/uL (0.0-0.2) Sodium Level 139 mmol/L (136-145) Potassium Level 3.9 mmol/L (3.5-5.1) Chloride Level 102 mmol/L (98-107) Carbon Dioxide Level 32 mmol/L (21-32) Anion Gap 5 (6-14) Blood Urea Nitrogen 10 mg/dL (8-26) Creatinine 0.7 mg/dL (0.7-1.3) Estimated GFR (Cockcroft-Gault) 112.5 Glucose Level 91 mg/dL (70-99) Calcium Level 8.5 mg/dL (8.5-10.1) Laboratory Tests Test 11/10/18 04:30 White Blood Count 8.1 x10^3/uL (4.0-11.0) Red Blood Count 3.87 x10^6/uL (4.30-5.70) Hemoglobin 12.0 g/dL (13.0-17.5) Hematocrit 35.9 % (39.0-53.0) Mean Corpuscular Volume 93 fL (79-100) Mean Corpuscular Hemoglobin 31 pg (25-35) Mean Corpuscular Hemoglobin Concent 34 g/dL (31-37) Red Cell Distribution Width 13.4 % (11.5-14.5) Platelet Count 317 x10^3/uL (140-400) Neutrophils (%) (Auto) 67 % (31-73) Lymphocytes (%) (Auto) 21 % (24-48) Monocytes (%) (Auto) 8 % (0-9) Eosinophils (%) (Auto) 3 % (0-3) Basophils (%) (Auto) 1 % (0-3) Neutrophils # (Auto) 5.5 x10^3uL (1.8-7.7) Lymphocytes # (Auto) 1.7 x10^3/uL (1.0-4.8) Monocytes # (Auto) 0.6 x10^3/uL (0.0-1.1) Eosinophils # (Auto) 0.3 x10^3/uL (0.0-0.7) Basophils # (Auto) 0.1 x10^3/uL (0.0-0.2) Sodium Level 139 mmol/L (136-145) Potassium Level 3.9 mmol/L (3.5-5.1) Chloride Level 102 mmol/L (98-107) Carbon Dioxide Level 32 mmol/L (21-32) Anion Gap 5 (6-14) Blood Urea Nitrogen 10 mg/dL (8-26) Creatinine 0.7 mg/dL (0.7-1.3) Estimated GFR (Cockcroft-Gault) 112.5 Glucose Level 91 mg/dL (70-99) Calcium Level 8.5 mg/dL (8.5-10.1) Medications Current Medications Hydromorphone HCl (Dilaudid) 8 mg PRN Q4HRS PRN PO PAIN; Start 11/07/18 at 18:0 0; Status Cancel Quetiapine Fumarate (SEROquel) 50 mg QHS PO Last administered on 11/09/18at 21:17; Start 11/07/18 at 21:00 Oxycodone/ Acetaminophen (Percocet 10/325) 1 tab PRN Q4HRS PRN PO moderate pain Last administered on 11/10/18at 17:47; Start 11/07/18 at 18:15 Atorvastatin Calcium (Lipitor) 40 mg QHS PO Last administered on 11/09/18at 21:17; Start 11/07/18 at 21:00 Cyclobenzaprine HCl (Flexeril) 10 mg BID PO Last administered on 11/10/18at 08:30; Start 11/07/18 at 21:00 Divalproex Sodium (Depakote Er) 500 mg BID PO Last administered on 11/10/18at 08:29; Start 11/07/18 at 21:00 Docusate Sodium (Colace) 100 mg PRN BID PRN PO CONSTIPATION; Start 11/07/18 at 18:15; Stop 11/10/18 at 07:35; Status DC Prednisone (Prednisone) 20 mg DAILY PO Last administered on 11/10/18 08:29; Start 11/08/18 at 09:00 Non-Formulary Medication (Fluvoxamine Maleate ) 300 mg DAILY06 PO ; Start 11/08/18 at 06:00; Stop 11/09/18 at 08:34; Status DC Hydromorphone HCl (Dilaudid) 8 mg PRN Q4HRS PRN PO SEVERE PAIN Last administered on 11/10/18 15:55; Start 11/07/18 at 18:30 Lisinopril (Prinivil) 5 mg DAILY PO Last administered on 11/09/18 08:30; Start 11/08/18 at 09:00; Stop 11/09/18 at 10:01; Status DC Lorazepam (Ativan) 2 mg HS PO Last administered on 11/09/18 21:17; Start 11/07/18 at 21:00 Fish Oil (Fish Oil) 1,000 mg TID PO Last administered on 11/10/18 08:32; Start 11/07/18 at 21:00 Primidone (Mysoline) 250 mg BID PO Last administered on 11/10/18 08:29; Start 11/07/18 at 21:00 Ceftriaxone Sodium (Rocephin) 1 gm Q24H IVP Last administered on 11/09/18 21:18; Start 11/07/18 at 23:00 Doxycycline Hyclate (Vibra-Tab) 100 mg BID PO Last administered on 11/10/18 08:28; Start 11/07/18 at 23:00 Albuterol/ Ipratropium (Duoneb) 3 ml RTQID NEB Last administered on 11/10/18 16:10; Start 11/08/18 at 08:00 Enoxaparin Sodium (Lovenox Per Pharmacy Prophylaxis Dosing) 1 each PRN DAILY PRN MC SEE COMMENTS; Start 11/07/18 at 22:15 Enoxaparin Sodium (Lovenox 40mg Syringe) 40 mg QHS SQ Last administered on 11/09/18 21:18; Start 11/07/18 at 23:00 Lactobacillus Rhamnosus (Culturelle) 1 cap BID PO Last administered on 11/10/18 08:29; Start 11/08/18 at 09:00 Aspirin (Ecotrin) 325 mg DAILYWBKFT PO Last administered on 11/10/18 08:28; Start 11/08/18 at 11:00 Potassium Chloride (Klor-Con) 20 meq 1X ONCE PO Last administered on 11/08/18 15:48; Start 11/08/18 at 11:45; Stop 11/08/18 at 11:46; Status DC Levothyroxine Sodium (Synthroid) 75 mcg DAILY06 PO Last administered on 11/09/18 06:03; Start 11/08/18 at 16:00; Stop 11/09/18 at 10:00; Status DC Non-Formulary Medication (Fluvoxamine Maleate ) 100 mg TID PO Last administered on 11/10/18 13:43; Start 11/09/18 at 09:00 Levothyroxine Sodium (Synthroid) 75 mcg DAILY06 PO Last administered on 11/10/18 05:01; Start 11/10/18 at 06:00 Lisinopril (Prinivil) 10 mg DAILY PO Last administered on 11/10/18 08:43; Start 11/10/18 at 09:00 Lisinopril (Prinivil) 5 mg 1X ONCE PO Last administered on 11/09/18 13:26; Start 11/09/18 at 11:00; Stop 11/09/18 at 11:01; Status DC Polyethylene Glycol (miraLAX PACKET) 17 gm DAILY PO Last administered on 11/10 08:28; Start 11/09/18 at 10:00 Docusate Sodium (Colace) 100 mg PRN DAILY PRN PO CONSTIPATION; Start 11/09/18 at 10:15 Docusate Sodium (Colace) 100 mg DAILY PO Last administered on 11/10/18 08:29; Start 11/09/18 at 11:00 Acetaminophen/ Butalbital/ Caffeine (Fioricet) 2 tab PRN Q6HRS PRN PO MIGRAINE HEADACHE Last administered on 11/10/18 06:01; Start 11/09/18 at 10:30 Active Scripts Active Lisinopril 5 Mg Tablet 5 Mg PO DAILY Atorvastatin Calcium 40 Mg Tablet 40 Mg PO QHS Reported Cyclobenzaprine Hcl 10 Mg Tablet 1 Tab PO BID Dilaudid (Hydromorphone Hcl) 8 Mg Tablet 1 Tab PO Q4-6HRS PRN Ativan (Lorazepam) 2 Mg Tablet 2 Mg PO HS Vitamin E (Vitamin E (Dl,Tocopheryl Acet)) 400 Unit Capsule 400 Unit PO Senna (Sennosides) 8.6 Mg Tablet 8.6 Mg PO PRN Colace (Docusate Sodium) 100 Mg Capsule 1 Cap PO BID PRN Fluvoxamine Maleate 100 Mg Tablet 300 Mg PO DAILY06 Depakote Er (Divalproex Sodium) 500 Mg Tab.er.24h 1 Tab PO BID Prednisone 20 Mg Tablet 20 Mg PO DAILY Percocet 10-325 Mg Tablet (Oxycodone/Acetaminophen) 1 Each Tablet 1 Tab PO Q4HRS Mysoline (Primidone) 250 Mg Tablet 250 Mg PO BID [place] 3 1,000 Mg Softgel ([place]-3 Fatty Acids/Fish Oil) 1 Each Capsule 1 Each PO TID Vitals/I & O Vital Sign - Last 24 Hours 11/09/18 11/09/18 11/09/18 11/09/18 19:44 20:18 20:35 22:28 Temp 96.5 96.5 Pulse 68 Resp 16 18 B/P (MAP) 142/84 (103) Pulse Ox 91 94 O2 Delivery Nasal Cannula Nasal Cannula Room Air Room Air O2 Flow Rate 2.0 2.0 11/09/18 11/10/18 11/10/18 11/10/18 22:32 03:22 05:01 06:01 Temp 97.7 97.5 97.7 97.5 Pulse 70 69 Resp 18 20 18 18 B/P (MAP) 169/91 (117) 129/90 (103) Pulse Ox 93 92 92 O2 Delivery Room Air Room Air Room Air 11/10/18 11/10/18 11/10/18 11/10/18 07:00 07:40 07:46 08:43 Temp 97.3 97.3 Pulse 59 59 Resp 12 B/P (MAP) 155/89 (111) 155/89 Pulse Ox 92 94 O2 Delivery Room Air Room Air Room Air 11/10/18 11/10/18 11/10/18 11/10/18 09:29 11:00 12:11 13:43 Temp 97.5 97.5 Pulse 71 Resp 12 B/P (MAP) 143/89 (107) Pulse Ox 91 95 O2 Delivery Room Air Room Air Room Air Room Air 11/10/18 11/10/18 11/10/18 11/10/18 15:00 15:00 16:10 17:47 Temp 97.5 97.5 Pulse 79 Resp 16 B/P (MAP) 135/101 (112) Pulse Ox 94 95 O2 Delivery Room Air Room Air Room Air Room Air Intake and Output 11/09/18 11/09/18 11/10/18 15:00 23:00 07:00 Intake Total 3680 ml 360 ml 60 ml Output Total 750 ml 900 ml 150 ml Balance 2930 ml -540 ml -90 ml YOSEF QUINONES MD Nov 10, 2018 18:59
[2018-11-10 19:25] VITALS: BP 131/98
[2018-11-10] MEDS: QUEtiapine 25 MG TABLET. PO SCH (20:35)
[2018-11-10] MEDS: ATORVASTATIN CALCIUM 40 MG TABLET. PO SCH (20:35)
[2018-11-10] MEDS: LORazepam 1 MG TABLET PO SCH (20:35)
[2018-11-10] MEDS: cefTRIAXone IV Push 1 GM VIAL. IVP SCH (20:36)
[2018-11-10] MEDS: ENOXAPARIN 40 MG/0.4 ML SYRINGE. SQ SCH (20:36)
[2018-11-10 22:45] VITALS: BP 137/89
[2018-11-11] MEDS: HYDROmorphone 4 MG TABLET PO PRN ×3 (02:40→15:23)
[2018-11-11 03:15] VITALS: BP 138/91
[2018-11-11] MEDS: oxyCODONE/APAP 10/325 1 TAB TABLET PO PRN ×4 (04:37→18:03)
[2018-11-11] MEDS: LEVOTHYROXINE 75 MCG TABLET PO SCH (06:42)
[2018-11-11 07:20] VITALS: BP 160/93
[2018-11-11] MEDS: OMEGA-3 FATTY ACIDS/FISH OIL 1,000 MG CAPSULE. PO SCH ×3 (08:14→21:35)
[2018-11-11] MEDS: CYCLOBENZAPRINE 10 MG TABLET. PO SCH ×2 (08:14→21:35)
[2018-11-11] MEDS: DOXYCYCLINE HYCLATE 100 MG TABLET PO SCH ×2 (08:14→21:38)
[2018-11-11] MEDS: PRIMIDONE 250 MG TABLET PO SCH ×2 (08:15→21:35)
[2018-11-11] MEDS: DOCUSATE SODIUM 100 MG CAPSULE. PO SCH (08:15)
[2018-11-11] MEDS: LISINOPRIL 10 MG TABLET PO SCH (08:15)
[2018-11-11] MEDS: DIVALPROEX EXTENDED RELEASE 500 MG TAB.ER.24H. PO SCH ×2 (08:15→21:38)
[2018-11-11] MEDS: ASPIRIN ENTERIC COATED 325 MG TABLET.DR. PO SCH (08:15)
[2018-11-11] MEDS: LACTOBACILLUS RHAMNOSUS GG 1 CAPSULE. PO SCH ×2 (08:16→21:36)
[2018-11-11] MEDS: predniSONE 20 MG TABLET PO SCH (08:16)
[2018-11-11] MEDS: POLYETHYLENE GLYCOL 3350 17 GM PACKET. PO SCH (08:16)
--- NOTE | 2018-11-11 08:18 | PDOC ---
PROGRESS NOTES Chief Complaint Chief Complaint acute on chronic neck pain, s/p fall and new cervical fracture, has had trouble with pain control, pneumonia and recent sepsis, cont abx course, prior pneumonia x2, and chest pain and bronchitis new atrial flutter, rate controlled, new minor diastolic CHF obesity BMI 37 autoimmune disease, NOS, rheumatoid, CHF, chronic diastolic History of Present Illness History of Present Illness pain better, now more headache than neck pain, may be able to DC soon, would benefit from hospital bed at the house, may need a palliative care referral for home as well. anxiety better today Videoswallow evaluation today Dr. Mckee and Armdia have seen plan is home health, will d/w SW Vitals Vitals Vital Signs Date Time Temp Pulse Resp B/P (MAP) Pulse Ox O2 Delivery O2 Flow Rate FiO2 11/11/18 07:20 98.0 63 18 160/93 (115) 93 Room Air 98.0 Physical Exam General: Alert, Oriented X3, Cooperative, No acute distress Heart: Regular rate, Other (YON border systolic murmur 3/6) Lungs: Other (better, rales, ) Abdomen: Soft, No tenderness Extremities: No cyanosis, No edema Skin: Other (vitiligo, left elbow wound with dressing) Comment Review of Relevant I have reviewed the following items sujit (where applicable) has been applied. Labs Laboratory Tests Test 11/10/18 04:30 White Blood Count 8.1 x10^3/uL (4.0-11.0) Red Blood Count 3.87 x10^6/uL (4.30-5.70) Hemoglobin 12.0 g/dL (13.0-17.5) Hematocrit 35.9 % (39.0-53.0) Mean Corpuscular Volume 93 fL (79-100) Mean Corpuscular Hemoglobin 31 pg (25-35) Mean Corpuscular Hemoglobin Concent 34 g/dL (31-37) Red Cell Distribution Width 13.4 % (11.5-14.5) Platelet Count 317 x10^3/uL (140-400) Neutrophils (%) (Auto) 67 % (31-73) Lymphocytes (%) (Auto) 21 % (24-48) Monocytes (%) (Auto) 8 % (0-9) Eosinophils (%) (Auto) 3 % (0-3) Basophils (%) (Auto) 1 % (0-3) Neutrophils # (Auto) 5.5 x10^3uL (1.8-7.7) Lymphocytes # (Auto) 1.7 x10^3/uL (1.0-4.8) Monocytes # (Auto) 0.6 x10^3/uL (0.0-1.1) Eosinophils # (Auto) 0.3 x10^3/uL (0.0-0.7) Basophils # (Auto) 0.1 x10^3/uL (0.0-0.2) Sodium Level 139 mmol/L (136-145) Potassium Level 3.9 mmol/L (3.5-5.1) Chloride Level 102 mmol/L (98-107) Carbon Dioxide Level 32 mmol/L (21-32) Anion Gap 5 (6-14) Blood Urea Nitrogen 10 mg/dL (8-26) Creatinine 0.7 mg/dL (0.7-1.3) Estimated GFR (Cockcroft-Gault) 112.5 Glucose Level 91 mg/dL (70-99) Calcium Level 8.5 mg/dL (8.5-10.1) Medications Current Medications Hydromorphone HCl (Dilaudid) 8 mg PRN Q4HRS PRN PO PAIN; Start 11/07/18 at 18:00; Status Cancel Quetiapine Fumarate (SEROquel) 50 mg QHS PO Last administered on 11/10/18at 20:35; Start 11/07/18 at 21:00 Oxycodone/ Acetaminophen (Percocet 10/325) 1 tab PRN Q4HRS PRN PO moderate pain Last administered on 11/11/18at 04:37; Start 11/07/18 at 18:15 Atorvastatin Calcium (Lipitor) 40 mg QHS PO Last administered on 11/10/18at 20:35; Start 11/07/18 at 21:00 Cyclobenzaprine HCl (Flexeril) 10 mg BID PO Last administered on 11/10/18at 20:35; Start 11/07/18 at 21:00 Divalproex Sodium (Depakote Er) 500 mg BID PO Last administered on 11/10/18at 20:35; Start 11/07/18 at 21:00 Docusate Sodium (Colace) 100 mg PRN BID PRN PO CONSTIPATION; Start 11/07/18 at 18:15; Stop 11/10/18 at 07:35; Status DC Prednisone (Prednisone) 20 mg DAILY PO Last administered on 11/10/18 08:29; Start 11/08/18 at 09:00 Non-Formulary Medication (Fluvoxamine Maleate ) 300 mg DAILY06 PO ; Start 11/08/18 at 06:00; Stop 11/09/18 at 08:34; Status DC Hydromorphone HCl (Dilaudid) 8 mg PRN Q4HRS PRN PO SEVERE PAIN Last administered on 11/11/18 02:40; Start 11/07/18 at 18:30 Lisinopril (Prinivil) 5 mg DAILY PO Last administered on 11/09/18 08:30; Start 11/08/18 at 09:00; Stop 11/09/18 at 10:01; Status DC Lorazepam (Ativan) 2 mg HS PO Last administered on 11/10/18 20:35; Start 11/07/18 at 21:00 Fish Oil (Fish Oil) 1,000 mg TID PO Last administered on 11/10/18 20:35; Start 11/07/18 at 21:00 Primidone (Mysoline) 250 mg BID PO Last administered on 11/10/18 20:35; Start 11/07/18 at 21:00 Ceftriaxone Sodium (Rocephin) 1 gm Q24H IVP Last administered on 11/10/18 20:36; Start 11/07/18 at 23:00 Doxycycline Hyclate (Vibra-Tab) 100 mg BID PO Last administered on 11/10/18 20:35; Start 11/07/18 at 23:00 Albuterol/ Ipratropium (Duoneb) 3 ml RTQID NEB Last administered on 11/10/18 19:55; Start 11/08/18 at 08:00 Enoxaparin Sodium (Lovenox Per Pharmacy Prophylaxis Dosing) 1 each PRN DAILY PRN MC SEE COMMENTS; Start 11/07/18 at 22:15 Enoxaparin Sodium (Lovenox 40mg Syringe) 40 mg QHS SQ Last administered on 20:36; Start 11/07/18 at 23:00 Lactobacillus Rhamnosus (Culturelle) 1 cap BID PO Last administered on 11/10/18 20:35; Start 11/08/18 at 09:00 Aspirin (Ecotrin) 325 mg DAILYWBKFT PO Last administered on 11/10/18 08:28; Start 11/08/18 at 11:00 Potassium Chloride (Klor-Con) 20 meq 1X ONCE PO Last administered on 11/08/18 15:48; Start 11/08/18 at 11:45; Stop 11/08/18 at 11:46; Status DC Levothyroxine Sodium (Synthroid) 75 mcg DAILY06 PO Last administered on 11/09/18 06:03; Start 11/08/18 at 16:00; Stop 11/09/18 at 10:00; Status DC Non-Formulary Medication (Fluvoxamine Maleate ) 100 mg TID PO Last administered on 11/10/18 20:34; Start 11/09/18 at 09:00 Levothyroxine Sodium (Synthroid) 75 mcg DAILY06 PO Last administered on 11/11/18 06:42; Start 11/10/18 at 06:00 Lisinopril (Prinivil) 10 mg DAILY PO Last administered on 11/10/18 08:43; Start 11/10/18 at 09:00 Lisinopril (Prinivil) 5 mg 1X ONCE PO Last administered on 11/09/18 13:26; Start 11/09/18 at 11:00; Stop 11/09/18 at 11:01; Status DC Polyethylene Glycol (miraLAX PACKET) 17 gm DAILY PO Last administered on 11/10/18 08:28; Start 11/09/18 at 10:00 Docusate Sodium (Colace) 100 mg PRN DAILY PRN PO CONSTIPATION; Start 11/09/18 at 10:15 Docusate Sodium (Colace) 100 mg DAILY PO Last administered on 11/10/18 08:29; Start 11/09/18 at 11:00 Acetaminophen/ Butalbital/ Caffeine (Fioricet) 2 tab PRN Q6HRS PRN PO MIGRAINE HEADACHE Last administered on 11/10/18 19:22; Start 11/09/18 at 10:30 Active Scripts Active Lisinopril 5 Mg Tablet 5 Mg PO DAILY Atorvastatin Calcium 40 Mg Tablet 40 Mg PO QHS Reported Cyclobenzaprine Hcl 10 Mg Tablet 1 Tab PO BID Dilaudid (Hydromorphone Hcl) 8 Mg Tablet 1 Tab PO Q4-6HRS PRN Ativan (Lorazepam) 2 Mg Tablet 2 Mg PO HS Vitamin E (Vitamin E (Dl,Tocopheryl Acet)) 400 Unit Capsule 400 Unit PO Senna (Sennosides) 8.6 Mg Tablet 8.6 Mg PO PRN Colace (Docusate Sodium) 100 Mg Capsule 1 Cap PO BID PRN Fluvoxamine Maleate 100 Mg Tablet 300 Mg PO DAILY06 Depakote Er (Divalproex Sodium) 500 Mg Tab.er.24h 1 Tab PO BID Prednisone 20 Mg Tablet 20 Mg PO DAILY Percocet 10-325 Mg Tablet (Oxycodone/Acetaminophen) 1 Each Tablet 1 Tab PO Q4HRS Mysoline (Primidone) 250 Mg Tablet 250 Mg PO BID [place] 3 1,000 Mg Softgel ([place]-3 Fatty Acids/Fish Oil) 1 Each Capsule 1 Each PO TID Vitals/I & O Vital Sign - Last 24 Hours 11/10/18 11/10/18 11/10/18 11/10/18 08:43 09:29 11:00 12:11 Temp 97.5 97.5 Pulse 59 71 Resp 12 B/P (MAP) 155/89 143/89 (107) Pulse Ox 91 95 O2 Delivery Room Air Room Air Room Air 11/10/18 11/10/18 11/10/18 11/10/18 13:43 15:00 16:10 17:47 Temp 97.5 97.5 Pulse 79 Resp 16 B/P (MAP) 135/101 (112) Pulse Ox 94 95 O2 Delivery Room Air Room Air Room Air Room Air 11/10/18 11/10/18 11/10/18 11/10/18 19:25 19:55 20:00 22:45 Temp 97.8 98.2 97.8 98.2 Pulse 66 72 Resp 20 22 B/P (MAP) 131/98 (109) 137/89 (105) Pulse Ox 94 94 92 O2 Delivery Room Air Room Air Room Air Room Air 11/10/18 11/11/18 11/11/18 11/11/18 23:57 03:15 04:37 05:37 Temp 98.2 98.2 Pulse 57 Resp 17 22 17 17 B/P (MAP) 138/91 (107) Pulse Ox 93 O2 Delivery Room Air Room Air Room Air Room Air 11/11/18 07:20 Temp 98.0 98.0 Pulse 63 Resp 18 B/P (MAP) 160/93 (115) Pulse Ox 93 O2 Delivery Room Air Intake and Output 11/10/18 11/10/18 11/11/18 15:00 23:00 07:00 Intake Total 520 ml 100 ml Output Total 350 ml 925 ml 200 ml Balance 170 ml -925 ml -100 ml MARISA BASS MD Nov 11, 2018 08:18
[2018-11-11] MEDS ORDERED: BARIUM SULFATE 40% (APPLE) 148 GM PWD. PO ONE (09:00)
--- NOTE | 2018-11-11 09:12 | PDOC ---
PROGRESS NOTES Subjective Subjective He admits some neck pain with nursing helping him with movement this AM. Objective Objective Vital Signs Date Time Temp Pulse Resp B/P (MAP) Pulse Ox O2 Delivery O2 Flow Rate FiO2 11/11/18 08:16 93 Room Air 2.0 11/11/18 08:15 63 160/93 11/11/18 07:20 98.0 18 98.0 Intake and Output 11/11/18 06:59 Intake Total 620 ml Output Total 1475 ml Balance -855 ml Intake Oral 620 ml Output Urine Total 1475 ml Physical Exam Physical Exam He is supine in bed and comfortable without cervical collar and minimal tenderness to palpation over cervical paraspinal muscles without any muscle spasm. He did walk for 25' with roller walker with physical therapy. Plan Plan of Care To continue present rehab efforts as tolerated and home with home health follow up when medically stable. Comment Review of Relevant I have reviewed the following items sujit (where applicable) has been applied. Labs Laboratory Tests Test 11/10/18 04:30 White Blood Count 8.1 x10^3/uL (4.0-11.0) Red Blood Count 3.87 x10^6/uL (4.30-5.70) Hemoglobin 12.0 g/dL (13.0-17.5) Hematocrit 35.9 % (39.0-53.0) Mean Corpuscular Volume 93 fL (79-100) Mean Corpuscular Hemoglobin 31 pg (25-35) Mean Corpuscular Hemoglobin Concent 34 g/dL (31-37) Red Cell Distribution Width 13.4 % (11.5-14.5) Platelet Count 317 x10^3/uL (140-400) Neutrophils (%) (Auto) 67 % (31-73) Lymphocytes (%) (Auto) 21 % (24-48) Monocytes (%) (Auto) 8 % (0-9) Eosinophils (%) (Auto) 3 % (0-3) Basophils (%) (Auto) 1 % (0-3) Neutrophils # (Auto) 5.5 x10^3uL (1.8-7.7) Lymphocytes # (Auto) 1.7 x10^3/uL (1.0-4.8) Monocytes # (Auto) 0.6 x10^3/uL (0.0-1.1) Eosinophils # (Auto) 0.3 x10^3/uL (0.0-0.7) Basophils # (Auto) 0.1 x10^3/uL (0.0-0.2) Sodium Level 139 mmol/L (136-145) Potassium Level 3.9 mmol/L (3.5-5.1) Chloride Level 102 mmol/L (98-107) Carbon Dioxide Level 32 mmol/L (21-32) Anion Gap 5 (6-14) Blood Urea Nitrogen 10 mg/dL (8-26) Creatinine 0.7 mg/dL (0.7-1.3) Estimated GFR (Cockcroft-Gault) 112.5 Glucose Level 91 mg/dL (70-99) Calcium Level 8.5 mg/dL (8.5-10.1) Medications Current Medications Hydromorphone HCl (Dilaudid) 8 mg PRN Q4HRS PRN PO PAIN; Start 11/07/18 at 18:00; Status Cancel Quetiapine Fumarate (SEROquel) 50 mg QHS PO Last administered on 11/10/18at 20:35; Start 11/07/18 at 21:00 Oxycodone/ Acetaminophen (Percocet 10/325) 1 tab PRN Q4HRS PRN PO moderate pain Last administered on 11/11/18 08:16; Start 11/07/18 at 18:15 Atorvastatin Calcium (Lipitor) 40 mg QHS PO Last administered on 11/10/18at 20:35; Start 11/07/18 at 21:00 Cyclobenzaprine HCl (Flexeril) 10 mg BID PO Last administered on 11/11/18 08:14; Start 11/07/18 at 21:00 Divalproex Sodium (Depakote Er) 500 mg BID PO Last administered on 11/11/18 08:15; Start 11/07/18 at 21:00 Docusate Sodium (Colace) 100 mg PRN BID PRN PO CONSTIPATION; Start 11/07/18 at 18:15; Stop 11/10/18 at 07:35; Status DC Prednisone (Prednisone) 20 mg DAILY PO Last administered on 11/11/18at 08:16; Start 11/08/18 at 09:00 Non-Formulary Medication (Fluvoxamine Maleate ) 300 mg DAILY06 PO ; Start 11/08/18 at 06:00; Stop 11/09/18 at 08:34; Status DC Hydromorphone HCl (Dilaudid) 8 mg PRN Q4HRS PRN PO SEVERE PAIN Last a dministered on 11/11/18 02:40; Start 11/07/18 at 18:30 Lisinopril (Prinivil) 5 mg DAILY PO Last administered on 11/09/18 08:30; Start 11/08/18 at 09:00; Stop 11/09/18 at 10:01; Status DC Lorazepam (Ativan) 2 mg HS PO Last administered on 11/10/18 20:35; Start 11/07/18 at 21:00 Fish Oil (Fish Oil) 1,000 mg TID PO Last administered on 11/11/18 08:14; Start 11/07/18 at 21:00 Primidone (Mysoline) 250 mg BID PO Last administered on 11/11/18 08:15; Start 11/07/18 at 21:00 Ceftriaxone Sodium (Rocephin) 1 gm Q24H IVP Last administered on 11/10/18 20:36; Start 11/07/18 at 23:00 Doxycycline Hyclate (Vibra-Tab) 100 mg BID PO Last administered on 11/11/18 08:14; Start 11/07/18 at 23:00 Albuterol/ Ipratropium (Duoneb) 3 ml RTQID NEB Last administered on 11/10/18 19:55; Start 11/08/18 at 08:00 Enoxaparin Sodium (Lovenox Per Pharmacy Prophylaxis Dosing) 1 each PRN DAILY PRN MC SEE COMMENTS; Start 11/07/18 at 22:15 Enoxaparin Sodium (Lovenox 40mg Syringe) 40 mg QHS SQ Last administered on 11/10/18 20:36; Start 11/07/18 at 23:00 Lactobacillus Rhamnosus (Culturelle) 1 cap BID PO Last administered on 11/11/18 08:16; Start 11/08/18 at 09:00 Aspirin (Ecotrin) 325 mg DAILYWBKFT PO Last administered on 11/11/18 08:15; Start 11/08/18 at 11:00 Potassium Chloride (Klor-Con) 20 meq 1X ONCE PO Last administered on 11/08/18 15:48; Start 11/08/18 at 11:45; Stop 11/08/18 at 11:46; Status DC Levothyroxine Sodium (Synthroid) 75 mcg DAILY06 PO Last administered on 11/09/18 06:03; Start 11/08/18 at 16:00; Stop 11/09/18 at 10:00; Status DC Non-Formulary Medication (Fluvoxamine Maleate ) 100 mg TID PO Last administered on 11/11/18 08:16; Start 11/09/18 at 09:00 Levothyroxine Sodium (Synthroid) 75 mcg DAILY06 PO Last administered on 11/11/18 06:42; Start 11/10/18 at 06:00 Lisinopril (Prinivil) 10 mg DAILY PO Last administered on 11/11/18 08:15; Start 11/10/18 at 09:00 Lisinopril (Prinivil) 5 mg 1X ONCE PO Last administered on 11/09/18 13:26; Start 11/09/18 at 11:00; Stop 11/09/18 at 11:01; Status DC Polyethylene Glycol (miraLAX PACKET) 17 gm DAILY PO Last administered on 11/11/18 08:16; Start 11/09/18 at 10:00 Docusate Sodium (Colace) 100 mg PRN DAILY PRN PO CONSTIPATION; Start 11/09/18 at 10:15 Docusate Sodium (Colace) 100 mg DAILY PO Last administered on 11/11/18at 08:15; Start 11/09/18 at 11:00 Acetaminophen/ Butalbital/ Caffeine (Fioricet) 2 tab PRN Q6HRS PRN PO MIGRAINE HEADACHE Last administered on 11/10/18 19:22; Start 11/09/18 at 10:30 Barium Sulfate ([place] Thin Liquid Apple) 148 gm 1X ONCE PO ; Start 11/11/18 at 09:00; Stop 11/11/18 at 09:01; Status DC Active Scripts Active Lisinopril 5 Mg Tablet 5 Mg PO DAILY Atorvastatin Calcium 40 Mg Tablet 40 Mg PO QHS Reported Cyclobenzaprine Hcl 10 Mg Tablet 1 Tab PO BID Dilaudid (Hydromorphone Hcl) 8 Mg Tablet 1 Tab PO Q4-6HRS PRN Ativan (Lorazepam) 2 Mg Tablet 2 Mg PO HS Vitamin E (Vitamin E (Dl,Tocopheryl Acet)) 400 Unit Capsule 400 Unit PO Senna (Sennosides) 8.6 Mg Tablet 8.6 Mg PO PRN Colace (Docusate Sodium) 100 Mg Capsule 1 Cap PO BID PRN Fluvoxamine Maleate 100 Mg Tablet 300 Mg PO DAILY06 Depakote Er (Divalproex Sodium) 500 Mg Tab.er.24h 1 Tab PO BID Prednisone 20 Mg Tablet 20 Mg PO DAILY Percocet 10-325 Mg Tablet (Oxycodone/Acetaminophen) 1 Each Tablet 1 Tab PO Q4HRS Mysoline (Primidone) 250 Mg Tablet 250 Mg PO BID [place] 3 1,000 Mg Softgel ([place]-3 Fatty Acids/Fish Oil) 1 Each Capsule 1 Each PO TID Vitals/I & O Vital Sign - Last 24 Hours 11/10/18 11/10/18 11/10/18 11/10/18 09:29 11:00 12:11 13:43 Temp 97.5 97.5 Pulse 71 Resp 12 B/P (MAP) 143/89 (107) Pulse Ox 91 95 O2 Delivery Room Air Room Air Room Air Room Air 11/10/18 11/10/18 11/10/18 11/10/18 15:00 16:10 17:47 19:25 Temp 97.5 97.8 97.5 97.8 Pulse 79 66 Resp 16 20 B/P (MAP) 135/101 (112) 131/98 (109) Pulse Ox 94 95 94 O2 Delivery Room Air Room Air Room Air Room Air 11/10/18 11/10/18 11/10/18 11/10/18 19:55 20:00 22:45 23:57 Temp 98.2 98.2 Pulse 72 Resp 22 17 B/P (MAP) 137/89 (105) Pulse Ox 94 92 O2 Delivery Room Air Room Air Room Air Room Air 11/11/18 11/11/18 11/11/18 11/11/18 03:15 04:37 05:37 07:20 Temp 98.2 98.0 98.2 98.0 Pulse 57 63 Resp 22 17 17 18 B/P (MAP) 138/91 (107) 160/93 (115) Pulse Ox 93 93 O2 Delivery Room Air Room Air Room Air Room Air 11/11/18 11/11/18 08:15 08:16 Pulse 63 B/P (MAP) 160/93 Pulse Ox 93 O2 Delivery Room Air O2 Flow Rate 2.0 Intake and Output 11/10/18 11/10/18 11/11/18 14:59 22:59 06:59 Intake Total 520 ml 100 ml Output Total 350 ml 925 ml 200 ml Balance 170 ml -925 ml -100 ml JUTSIN BIRD MD Nov 11, 2018 09:12
[2018-11-11] MEDS: IPRATRPIUM/ALBUTEROL 0.5/2.5MG 3 ML NEBU. NEB SCH ×4 (09:19→19:55)
--- NOTE | 2018-11-11 09:32 | PDOC ---
PULMONARY PROGRESS NOTES Subjective PT NOT MORE SOA NO CHEST PAIN Vitals Vital Signs Date Time Temp Pulse Resp B/P (MAP) Pulse Ox O2 Delivery O2 Flow Rate FiO2 11/11/18 09:21 94 Room Air 11/11/18 08:16 2.0 11/11/18 08:15 63 160/93 11/11/18 07:20 98.0 18 98.0 ROS: No Nausea, No Chest Pain, No Abdominal Pain, No Increase Cough General: Alert Lungs: Clear Cardiovascular: S1, S2 Abdomen: Soft, Non-tender Neuro Exam: Alert Extremities: Other (edema) Skin: Warm Labs Laboratory Tests Test 11/10/18 04:30 White Blood Count 8.1 x10^3/uL (4.0-11.0) Red Blood Count 3.87 x10^6/uL (4.30-5.70) Hemoglobin 12.0 g/dL (13.0-17.5) Hematocrit 35.9 % (39.0-53.0) Mean Corpuscular Volume 93 fL (79-100) Mean Corpuscular Hemoglobin 31 pg (25-35) Mean Corpuscular Hemoglobin Concent 34 g/dL (31-37) Red Cell Distribution Width 13.4 % (11.5-14.5) Platelet Count 317 x10^3/uL (140-400) Neutrophils (%) (Auto) 67 % (31-73) Lymphocytes (%) (Auto) 21 % (24-48) Monocytes (%) (Auto) 8 % (0-9) Eosinophils (%) (Auto) 3 % (0-3) Basophils (%) (Auto) 1 % (0-3) Neutrophils # (Auto) 5.5 x10^3uL (1.8-7.7) Lymphocytes # (Auto) 1.7 x10^3/uL (1.0-4.8) Monocytes # (Auto) 0.6 x10^3/uL (0.0-1.1) Eosinophils # (Auto) 0.3 x10^3/uL (0.0-0.7) Basophils # (Auto) 0.1 x10^3/uL (0.0-0.2) Sodium Level 139 mmol/L (136-145) Potassium Level 3.9 mmol/L (3.5-5.1) Chloride Level 102 mmol/L (98-107) Carbon Dioxide Level 32 mmol/L (21-32) Anion Gap 5 (6-14) Blood Urea Nitrogen 10 mg/dL (8-26) Creatinine 0.7 mg/dL (0.7-1.3) Estimated GFR (Cockcroft-Gault) 112.5 Glucose Level 91 mg/dL (70-99) Calcium Level 8.5 mg/dL (8.5-10.1) Medications Active Scripts Medications Dose Route/Sig Max Daily Dose Days Date Category Cyclobenzaprine Hcl 10 Mg Tablet 1 Tab PO BID 11/07/18 Reported Lisinopril 5 Mg Tablet 5 Mg PO DAILY 01/18/17 Rx Atorvastatin Calcium 40 Mg Tablet 40 Mg PO QHS 01/18/17 Rx Dilaudid (Hydromorphone Hcl) 8 Mg Tablet 1 Tab PO Q4-6HRS PRN 01/16/17 Reported Ativan (Lorazepam) 2 Mg Tablet 2 Mg PO HS 01/16/17 Reported Vitamin E (Vitamin E (Dl,Tocopheryl Acet)) 400 Unit Capsule 400 Unit PO 10/04/16 Reported Senna (Sennosides) 8.6 Mg Tablet 8.6 Mg PO PRN 09/16/16 Reported Colace (Docusate Sodium) 100 Mg Capsule 1 Cap PO BID PRN 09/16/16 Reported Fluvoxamine Maleate 100 Mg Tablet 300 Mg PO DAILY06 09/16/16 Reported Depakote Er (Divalproex Sodium) 500 Mg Tab.er.24h 1 Tab PO BID 09/16/16 Reported Prednisone 20 Mg Tablet 20 Mg PO DAILY 09/29/15 Reported Percocet 10-325 Mg Tablet (Oxycodone/Acetaminophen) 1 Each Tablet 1 Tab PO Q4HRS 06/09/15 Reported Mysoline (Primidone) 250 Mg Tablet 250 Mg PO BID 07/22/13 Reported [place] 3 1,000 Mg Softgel ([place]-3 Fatty Acids/Fish Oil) 1 Each Capsule 1 Each PO TID 07/22/13 Reported Comments cxr reviewed Bilateral lower lobe airspace disease. Cardiomegaly and mild dextroposition of the heart and mediastinum stable to prior imaging. Impression . IMPRESSION: 1. Pneumonia, suspect secondary from fall and pulmonary contusion. 2. Recent fall, suffering a neck fracture. 3. [id number] neck pain. 4. Morbid obesity. 5. Autoimmune disease, nonspecified. 6. aflutter, chf Plan . CONTINUE THE SAME OK TO D/C OR TRANSFER HOME ON AUGMENTIN CASIMIRO SPENCE MD Nov 11, 2018 09:32
--- NOTE | 2018-11-11 10:39 | RAD ---
Video dysphasia study, 11/11/2018: History: Dysphasia with aspiration, cervical fracture The swallowing mechanism was examined fluoroscopically in the lateral projection while the patient ingested a variety of liquids mixed with barium. 1.5 minutes of fluoroscopy time was utilized. One video fluoroscopic loop was recorded by a member of the speech Department. When ingesting the honey thickened material and the nectar consistency material there was minimal transient laryngeal penetration without aspiration. The majority of the barium bolus passed normally through the cervical esophagus. When ingesting the thin liquids there was mild laryngeal penetration. Minimal material coating the posterior aspect of the epiglottis eventually trickled down to the level of the vocal cords. No ruslan aspiration into the trachea occurred during exam. IMPRESSION: Mild laryngeal penetration of the thin liquid as described above.
[2018-11-11 10:45] VITALS: BP 133/92
--- NOTE | 2018-11-11 10:47 | PDOC ---
JAYY THOMAS APRN 11/11/18 1047: CARDIO Progress Notes Date and Time Date of Service 11/11/18 Time of Evaluation 1040 Subjective Subjective: Other (neck pain) Vitals Vitals Vital Signs Date Time Temp Pulse Resp B/P (MAP) Pulse Ox O2 Delivery O2 Flow Rate FiO2 11/11/18 09:21 94 Room Air 11/11/18 08:16 2.0 11/11/18 08:15 63 160/93 11/11/18 07:20 98.0 18 98.0 Weight Weight [ ] Input and Output Intake and Output Intake and Output 11/11/18 07:00 Intake Total 620 ml Output Total 1475 ml Balance -855 ml Intake Oral 620 ml Output Urine Total 1475 ml Physical Exam HEENT: Other (c-collar in place ) Chest: Symmetric LUNGS: Other (dimiished bases) Heart: S1S2, no gallops, murmurs (3/6 systolic murmur ), other (a-flutter) Abdomen: Soft N/T Extremities: No Edema Neurology: alert, oriented, follow commands Assessment Assessment 1. Traumatic fall with C2 fracture; has had multiple fall in recent past. 2. PAtrial flutter; new finding. Presently atrial flutter with rate near 65 3. Known hx of bradycardia and mobitz type 1 4. PNA, recent sepsis; ongoing antibiotic therapy 5. Hypertension; controlled 6. Hyperlipidemia; statin Recommendations No AV sana blocking agents with bradycardia Outpatient event monitor rule out contributing arrhythmias ASA for stroke prevention. Poor candidate for OAC given frequent falls Awaiting echo report from [facility]- to re-fax request today. Supportive care CHAU PALMER MD 11/11/18 2133: CARDIO Progress Notes Plan Plan Pt. seen and examined. Agree with above JEWEL WAXER note Spoke to patient and . Plan for outpt event monitor. Consider [facility] referral for watchman in the future. JAYY THOMAS APRN Nov 11, 2018 10:47 CHAU PALMER MD Nov 11, 2018 21:33
--- NOTE | 2018-11-11 11:15 | NUR ---
Videoswallow evaluation: Pt demonstrated mild premature spillage and delay in swallow initiation resulting in inconsistent transient penetration of thick and thin liquids that was inconsistently ejected during the swallow. Cough and clear strategy was effective in clearing penetrated material consistently. Pt demonstrated ability to effectively utilize strategy and present, stating understanding and verbalizes she will cue and reinforce use of strategy. Swallow appears improved from [facility] video last week where pt observed silently aspirating thin liquids. Recommendations: Dyspahgia I diet, thin liquids via straw. Swallow strategies including sitting upright 90*, single and double straw drinks w/ throat clear after drinking. Pt will require cues for throat clear initially. d/w RN, pt and pt's
--- NOTE | 2018-11-11 14:36 | NUR ---
SS following up with discharge planning. PT/OT evaluated and recommended acute rehabilitation. SS met with pt and spoke with pt's spouse via phone to discuss discharge planning and acute rehabilitation. Pt and spouse declined inpatient rehabilitation and requested to return to home with [facility], ;fax [phone]. SS will await discharge orders for home healthcare and will proceed accordingly. Pt's RN notified.
[2018-11-11 15:00] VITALS: BP 132/78
[2018-11-11] MEDS: BUTALB/APAP/CAFEIN 50/325/40MG TABLET. PO PRN (18:03)
[2018-11-11 19:25] VITALS: BP 144/89
[2018-11-11] MEDS: QUEtiapine 25 MG TABLET. PO SCH (21:25)
[2018-11-11] MEDS: ENOXAPARIN 40 MG/0.4 ML SYRINGE. SQ SCH (21:28)
[2018-11-11] MEDS: ATORVASTATIN CALCIUM 40 MG TABLET. PO SCH (21:35)
[2018-11-11] MEDS: LORazepam 1 MG TABLET PO SCH (21:36)
[2018-11-11 22:50] VITALS: BP 111/76
[2018-11-12] MEDS: cefTRIAXone IV Push 1 GM VIAL. IVP SCH (00:18)
[2018-11-12] MEDS: HYDROmorphone 4 MG TABLET PO PRN ×3 (00:29→13:02)
[2018-11-12] MEDS ORDERED: ACETAMINOPHEN 325 MG TABLET. PO PRN (00:45)
[2018-11-12 03:10] VITALS: BP 111/81
[2018-11-12] MEDS: LEVOTHYROXINE 75 MCG TABLET PO SCH (04:35)
[2018-11-12] MEDS: oxyCODONE/APAP 10/325 1 TAB TABLET PO PRN ×2 (04:35→11:04)
[2018-11-12 07:00] VITALS: BP 135/85
[2018-11-12] MEDS: BUTALB/APAP/CAFEIN 50/325/40MG TABLET. PO PRN (07:21)
[2018-11-12] MEDS: IPRATRPIUM/ALBUTEROL 0.5/2.5MG 3 ML NEBU. NEB SCH ×2 (07:41→12:14)
--- NOTE | 2018-11-12 07:55 | PDOC ---
PROGRESS NOTES Chief Complaint Chief Complaint acute on chronic neck pain, s/p fall and new cervical fracture, has had trouble with pain control, pneumonia and recent sepsis, cont abx course - augmentin prior pneumonia x2, and chest pain and bronchitis new atrial flutter, rate controlled, new minor diastolic CHF obesity BMI 37 autoimmune disease, NOS, rheumatoid, CHF, chronic diastolic History of Present Illness History of Present Illness 68 yo male w/ PMHx HTN, HLD, Pulm HTN, mobitz type 1, anxiety, bipolar depression, RA who was admitted for post fall and neck fracture and noted new atrial flutter. He was transferred to [facility] from [facility] due to insurance coverage. He fell in the bathroom, lost his balance but no lost of consciousness. At [facility] he was also treated for pneumonia, had abnormal CT scan, was continued on rocephin and doxycycline here. Prior to this trauma, he reports no hx of arrhythmias, CAD, CVA or VTE. No frequent falls. He does have chronic back pain and RA. He was rate controlled with periods of bradycardia with atrial flutter and converted to SR prior to being seen by cardiology here. He was seen in 2017 and outpt event monitor was performed and no significant arrhythmias was noted. Seen by pulmonology for his pneumonia and Pain management as well as PMR physicians for rehab for his non-operative C2 fracture. Seen for dysphagia by [employer] - Videoswallow evaluation showed mild laryngeal penetration of the thin liquid on 11/11/18 Would benefit from hospital bed at the house, may need a palliative care referral for home as well. Anxiety better today. He did walk for 25' with roller walker with physical therapy. Dr. Mckee and Armida have seen plan is home health, will d/w Vitals Vitals Vital Signs Date Time Temp Pulse Resp B/P (MAP) Pulse Ox O2 Delivery O2 Flow Rate FiO2 11/12/18 07:41 95 Room Air 11/12/18 05:44 16 11/12/18 03:10 97.5 62 111/81 (91) 97.5 11/11/18 19:03 2.0 Physical Exam General: Alert, Oriented X3, Cooperative, No acute distress Heart: Regular rate, Other (YON border systolic murmur 3/6) Lungs: Clear Abdomen: Soft, No tenderness Extremities: No cyanosis, No edema Skin: Other (vitiligo, left elbow wound with dressing) Comment Review of Relevant I have reviewed the following items sujit (where applicable) has been applied. Labs Microbiology 11/09/18 Urine Culture - Final, Complete 11/09/18 Urine Culture Result 1 (LAINEY) - Final, Complete Medications Current Medications Hydromorphone HCl (Dilaudid) 8 mg PRN Q4HRS PRN PO PAIN; Start 11/07/18 at 18:00; Status Cancel Quetiapine Fumarate (SEROquel) 50 mg QHS PO Last administered on 11/11/18at 21:25; Start 11/07/18 at 21:00 Oxycodone/ Acetaminophen (Percocet 10/325) 1 tab PRN Q4HRS PRN PO moderate pain Last administered on 11/12/18at 04:35; Start 11/07/18 at 18:15 Atorvastatin Calcium (Lipitor) 40 mg QHS PO Last administered on 11/11/18at 21:35; Start 11/07/18 at 21:00 Cyclobenzaprine HCl (Flexeril) 10 mg BID PO Last administered on 11/11/18at 21:35; Start 11/07/18 at 21:00 Divalproex Sodium (Depakote Er) 500 mg BID PO Last administered on 11/11/18 21:38; Start 11/07/18 at 21:00 Docusate Sodium (Colace) 100 mg PRN BID PRN PO CONSTIPATION; Start 11/07/18 at 18:15; Stop 11/10/18 at 07:35; Status DC Prednisone (Prednisone) 20 mg DAILY PO Last administered on 11/11/18at 08:16; Start 11/08/18 at 09:00 Non-Formulary Medication (Fluvoxamine Maleate ) 300 mg DAILY06 PO ; Start 11/08/18 at 06:00; Stop 11/09/18 at 08:34; Status DC Hydromorphone HCl (Dilaudid) 8 mg PRN Q4HRS PRN PO SEVERE PAIN Last adminis tered on 11/12/18at 00:29; Start 11/07/18 at 18:30 Lisinopril (Prinivil) 5 mg DAILY PO Last administered on 11/09/18at 08:30; Start 11/08/18 at 09:00; Stop 11/09/18 at 10:01; Status DC Lorazepam (Ativan) 2 mg HS PO Last administered on 11/11/18 21:36; Start 11/07/18 at 21:00 Fish Oil (Fish Oil) 1,000 mg TID PO Last administered on 11/11/18 21:35; Start 11/07/18 at 21:00 Primidone (Mysoline) 250 mg BID PO Last administered on 11/11/18 21:35; Start 11/07/18 at 21:00 Ceftriaxone Sodium (Rocephin) 1 gm Q24H IVP Last administered on 11/12/18 00:18; Start 11/07/18 at 23:00 Doxycycline Hyclate (Vibra-Tab) 100 mg BID PO Last administered on 11/11/18 21:38; Start 11/07/18 at 23:00 Albuterol/ Ipratropium (Duoneb) 3 ml RTQID NEB Last administered on 11/12/18 07:41; Start 11/08/18 at 08:00 Enoxaparin Sodium (Lovenox Per Pharmacy Prophylaxis Dosing) 1 each PRN DAILY PRN MC SEE COMMENTS; Start 11/07/18 at 22:15 Enoxaparin Sodium (Lovenox 40mg Syringe) 40 mg QHS SQ Last administered on 11/11/18 21:28; Start 11/07/18 at 23:00 Lactobacillus Rhamnosus (Culturelle) 1 cap BID PO Last administered on 11/11/18 21:36; Start 11/08/18 at 09:00 Aspirin (Ecotrin) 325 mg DAILYWBKFT PO Last administered on 11/11/18 08:15; Start 11/08/18 at 11:00 Potassium Chloride (Klor-Con) 20 meq 1X ONCE PO Last administered on 11/08/18 15:48; Start 11/08/18 at 11:45; Stop 11/08/18 at 11:46; Status DC Levothyroxine Sodium (Synthroid) 75 mcg DAILY06 PO Last administered on 11/09/18 06:03; Start 11/08/18 at 16:00; Stop 11/09/18 at 10:00; Status DC Non-Formulary Medication (Fluvoxamine Maleate ) 100 mg TID PO Last administered on 11/11/18 21:28; Start 11/09/18 at 09:00 Levothyroxine Sodium (Synthroid) 75 mcg DAILY06 PO Last administered on 11/12/18 04:35; Start 11/10/18 at 06:00 Lisinopril (Prinivil) 10 mg DAILY PO Last administered on 11/11/18 08:15; Start 11/10/18 at 09:00 Lisinopril (Prinivil) 5 mg 1X ONCE PO Last administered on 11/09/18 13:26; Start 11/09/18 at 11:00; Stop 11/09/18 at 11:01; Status DC Polyethylene Glycol (miraLAX PACKET) 17 gm DAILY PO Last administered on 11/11/18 08:16; Start 11/09/18 at 10:00 Docusate Sodium (Colace) 100 mg PRN DAILY PRN PO CONSTIPATION; Start 11/09/18 at 10:15 Docusate Sodium (Colace) 100 mg DAILY PO Last administered on 11/11/18 08:15; Start 11/09/18 at 11:00 Acetaminophen/ Butalbital/ Caffeine (Fioricet) 2 tab PRN Q6HRS PRN PO MIGRAINE HEADACHE Last administered on 11/12/18 07:21; Start 11/09/18 at 10:30 Barium Sulfate (Varibar Thin Liquid Apple) 148 gm 1X ONCE PO Last administered on 11/11/18 10:15; Start 11/11/18 at 09:00; Stop 11/11/18 at 09:01; Status DC Acetaminophen (Tylenol) 650 mg PRN Q6HRS PRN PO HEADACHE Last administered on 11/12/18 00:39; Start 11/12/18 at 00:45 Active Scripts Active Lisinopril 5 Mg Tablet 5 Mg PO DAILY Atorvastatin Calcium 40 Mg Tablet 40 Mg PO QHS Reported Cyclobenzaprine Hcl 10 Mg Tablet 1 Tab PO BID Dilaudid (Hydromorphone Hcl) 8 Mg Tablet 1 Tab PO Q4-6HRS PRN Ativan (Lorazepam) 2 Mg Tablet 2 Mg PO HS Vitamin E (Vitamin E (Dl,Tocopheryl Acet)) 400 Unit Capsule 400 Unit PO Senna (Sennosides) 8.6 Mg Tablet 8.6 Mg PO PRN Colace (Docusate Sodium) 100 Mg Capsule 1 Cap PO BID PRN Fluvoxamine Maleate 100 Mg Tablet 300 Mg PO DAILY06 Depakote Er (Divalproex Sodium) 500 Mg Tab.er.24h 1 Tab PO BID Prednisone 20 Mg Tablet 20 Mg PO DAILY Percocet 10-325 Mg Tablet (Oxycodone/Acetaminophen) 1 Each Tablet 1 Tab PO Q4HRS Mysoline (Primidone) 250 Mg Tablet 250 Mg PO BID [place] 3 1,000 Mg Softgel ([place]-3 Fatty Acids/Fish Oil) 1 Each Capsule 1 Each PO TID Vitals/I & O Vital Sign - Last 24 Hours 11/11/18 11/11/18 11/11/18 11/11/18 08:00 08:15 08:16 09:21 Pulse 63 B/P (MAP) 160/93 Pulse Ox 93 94 O2 Delivery Room Air Room Air Room Air O2 Flow Rate 2.0 11/11/18 11/11/18 11/11/18 11/11/18 10:45 12:29 13:07 15:00 Temp 98.3 98.3 Pulse 71 Resp 18 B/P (MAP) 133/92 (106) Pulse Ox 93 93 O2 Delivery Room Air Room Air Room Air Room Air O2 Flow Rate 2.0 11/11/18 11/11/18 11/11/18 11/11/18 15:00 16:20 18:03 19:03 Temp 97.7 97.7 Pulse 58 Resp 18 B/P (MAP) 132/78 (96) Pulse Ox 93 93 O2 Delivery Room Air Room Air Room Air O2 Flow Rate 2.0 2.0 11/11/18 11/11/18 11/11/18 11/11/18 19:25 20:00 21:19 22:50 Temp 98.1 97.1 98.1 97.1 Pulse 67 60 Resp 20 20 B/P (MAP) 144/89 (107) 111/76 (88) Pulse Ox 93 94 O2 Delivery Room Air Room Air Room Air Room Air 11/12/18 11/12/18 11/12/18 11/12/18 03:10 04:35 05:44 07:27 Temp 97.5 97.5 Pulse 62 Resp 20 20 16 B/P (MAP) 111/81 (91) Pulse Ox 94 94 94 O2 Delivery Room Air Room Air Room Air Room Air 11/12/18 07:41 Pulse Ox 95 O2 Delivery Room Air Intake and Output 11/11/18 11/11/18 11/12/18 14:59 22:59 06:59 Intake Total 480 ml 100 ml Output Total 225 ml 580 ml 405 ml Balance 255 ml -580 ml -305 ml MARISA BASS MD Nov 12, 2018 07:55
[2018-11-12] MEDS: DOXYCYCLINE HYCLATE 100 MG TABLET PO SCH (08:53)
[2018-11-12] MEDS: CYCLOBENZAPRINE 10 MG TABLET. PO SCH (08:53)
[2018-11-12] MEDS: ASPIRIN ENTERIC COATED 325 MG TABLET.DR. PO SCH (08:53)
[2018-11-12] MEDS: DOCUSATE SODIUM 100 MG CAPSULE. PO SCH (08:54)
[2018-11-12] MEDS: OMEGA-3 FATTY ACIDS/FISH OIL 1,000 MG CAPSULE. PO SCH ×2 (08:54→13:02)
[2018-11-12] MEDS: POLYETHYLENE GLYCOL 3350 17 GM PACKET. PO SCH (08:54)
[2018-11-12] MEDS: LISINOPRIL 10 MG TABLET PO SCH (08:54)
[2018-11-12] MEDS: predniSONE 20 MG TABLET PO SCH (08:54)
[2018-11-12] MEDS: LACTOBACILLUS RHAMNOSUS GG 1 CAPSULE. PO SCH (08:54)
[2018-11-12] MEDS: DIVALPROEX EXTENDED RELEASE 500 MG TAB.ER.24H. PO SCH (08:54)
[2018-11-12] MEDS: PRIMIDONE 250 MG TABLET PO SCH (08:54)
[2018-11-12] MEDS ORDERED: AMOXICILLIN/K CLAV 875/125MG TABLET. PO SCH (09:00)
--- NOTE | 2018-11-12 09:05 | PDOC ---
PULMONARY PROGRESS NOTES Subjective PT NOT MORE SOA NO CHEST PAIN Vitals Vital Signs Date Time Temp Pulse Resp B/P (MAP) Pulse Ox O2 Delivery O2 Flow Rate FiO2 11/12/18 08:54 64 135/85 11/12/18 07:41 95 Room Air 11/12/18 07:00 97.3 18 97.3 11/11/18 19:03 2.0 ROS: No Nausea, No Chest Pain, No Abdominal Pain, No Increase Cough General: Alert Lungs: Clear Cardiovascular: S1, S2 Abdomen: Soft, Non-tender Neuro Exam: Alert Extremities: Other (edema) Skin: Warm Medications Active Scripts Medications Dose Route/Sig Max Daily Dose Days Date Category Cyclobenzaprine Hcl 10 Mg Tablet 1 Tab PO BID 11/07/18 Reported Lisinopril 5 Mg Tablet 5 Mg PO DAILY 01/18/17 Rx Atorvastatin Calcium 40 Mg Tablet 40 Mg PO QHS 01/18/17 Rx Dilaudid (Hydromorphone Hcl) 8 Mg Tablet 1 Tab PO Q4-6HRS PRN 01/16/17 Reported Ativan (Lorazepam) 2 Mg Tablet 2 Mg PO HS 01/16/17 Reported Vitamin E (Vitamin E (Dl,Tocopheryl Acet)) 400 Unit Capsule 400 Unit PO 10/04/16 Reported Senna (Sennosides) 8.6 Mg Tablet 8.6 Mg PO PRN 09/16/16 Reported Colace (Docusate Sodium) 100 Mg Capsule 1 Cap PO BID PRN 09/16/16 Reported Fluvoxamine Maleate 100 Mg Tablet 300 Mg PO DAILY06 09/16/16 Reported Depakote Er (Divalproex Sodium) 500 Mg Tab.er.24h 1 Tab PO BID 09/16/16 Reported Prednisone 20 Mg Tablet 20 Mg PO DAILY 09/29/15 Reported Percocet 10-325 Mg Tablet (Oxycodone/Acetaminophen) 1 Each Tablet 1 Tab PO Q4HRS 06/09/15 Reported Mysoline (Primidone) 250 Mg Tablet 250 Mg PO BID 07/22/13 [address] [place] 3 1,000 Mg Softgel ([place]-3 Fatty Acids/Fish Oil) 1 Each Capsule 1 Each PO TID 07/22/13 Reported Comments cxr reviewed Bilateral lower lobe airspace disease. Cardiomegaly and mild dextroposition of the heart and mediastinum stable to prior imaging. Impression . IMPRESSION: 1. Pneumonia, suspect secondary from fall and pulmonary contusion. 2. Recent fall, suffering a neck fracture. 3. Dhgnb-ri-[id number] neck pain. 4. Morbid obesity. 5. Autoimmune disease, nonspecified. 6. aflutter, chf Plan . CONTINUE THE SAME OK TO D/C OR TRANSFER HOME ON AUGMENTIN CASIMIRO SPENCE MD Nov 12, 2018 09:05
--- NOTE | 2018-11-12 10:27 | PDOC3 ---
Discharge Summary Visit Information Date of Admission: Nov 07, 2018 Date of Discharge: Nov 12, 2018 Admitting Diagnosis: C2 fracture, pneumonia Final Diagnosis C2 fracture, aflutter, pneumonia Brief Hospital Course Allergies Allergies Coded Allergies Type Severity Reaction Last Updated Verified No Known Allergies Allergy Unknown 10/27/13 Yes Vital Signs Vital Signs Date Time Temp Pulse Resp B/P (MAP) Pulse Ox O2 Delivery O2 Flow Rate FiO2 11/12/18 08:54 64 135/85 11/12/18 07:41 95 Room Air 11/12/18 07:00 97.3 18 97.3 11/11/18 19:03 2.0 Brief Hospital Course Mr Fatima is a 68 yo male w/ PMHx HTN, HLD, Pulm HTN, mobitz type 1, anxiety, bipolar depression, RA who was admitted for post fall and neck fracture and noted new atrial flutter. He was transferred to [facility] from [facility] due to insurance coverage. He fell in the bathroom, lost his balance but no lost of co nsciousness. At [facility] he was also treated for pneumonia, had abnormal CT scan, was continued on rocephin and doxycycline here. Prior to this trauma, he reports no hx of arrhythmias, CAD, CVA or VTE. No frequent falls. He does have chronic back pain and RA. He was rate controlled with periods of bradycardia with atrial flutter and converted to SR prior to being seen by cardiology here. He was seen in 2017 and outpt event monitor was performed and no significant arrhythmias was noted. Seen by pulmonology for his pneumonia and Pain management as well as PMR physicians for rehab for his non-operative C2 fracture. Seen for dysphagia by [employer] - Videoswallow evaluation showed mild laryngeal penetration of the thin liquid on 11/11/18 - Dyspahgia I diet, thin liquids via straw. Swallow strategies including sitting upright 90*, single and double straw drinks w/ throat clear after drinking. Pt will require cues for throat clear initially. Seen by cardiology - No AV sana blocking agents with bradycardia. Outpatient event monitor rule out contributing arrhythmias ASA for stroke prevention. Poor candidate for OAC given frequent falls Would benefit from hospital bed at the house, in fact his bought a bed for discharge planning, wants home with home health to d/c today. Anxiety better today. He did walk for 25' with roller walker with physical therapy. Dr. Mckee and Armida have seen - will see in f/u as well as Dr. Hunt for rheum f/u. acute on chronic neck pain, s/p fall and new cervical fracture, has had trouble with pain control, pneumonia and recent sepsis, cont abx course, prior pneumonia x2, and chest pain and bronchitis new atrial flutter, rate controlled, new minor diastolic CHF obesity BMI 37 autoimmune disease, NOS, rheumatoid, CHF, chronic diastolic Greater than 30 minutes spent on d/c Discharge Information Condition at Discharge: Improved Follow Up: Weeks (2) Disposition/Orders: D/C to Home w/ HH (Tj) Scheduled Amoxicillin/Potassium Clav (Amox Tr-K Clv 875-125 Mg Tab) 1 Each Tablet, 1 TAB PO BID for Pneumonia for 5 Days, #10 Prescribed by: MARISA BASS MD on 11/12/18 1030 Aspirin (Aspirin Ec) 325 Mg Tablet.dr, 325 MG PO DAILYWBKFT for Aflutter for 30 Days, #30 Ref 11 Prescribed by: MARISA BASS MD on 11/12/18 1033 Atorvastatin Calcium (Atorvastatin Calcium) 40 Mg Tablet, 40 MG PO QHS, #30 Ref 2 Prescribed by: YOSEF QUINONES on 01/18/17 1316 Last Action: Continued on 11/07/181812 by JAYY WHITAKER Cyclobenzaprine Hcl (Cyclobenzaprine Hcl) 10 Mg Tablet, 1 TAB PO BID for muscle spasms, #90 (Reported) Entered as Reported by: JAYY WHITAKER on 11/07/181810 Last Taken: Unknown Dose on Unknown Date & Time Last Action: Continued on 11/07/181812 by JAYY WHITAKER Divalproex Sodium (Depakote Er) 500 Mg Tab.er.24h, 1 TAB PO BID, #60 Ref 2 (Reported) Entered as Reported by: LAWRENCE HILL on 09/16/16 1054 Last Action: Continued on 11/07/181812 by JAYY WHITKAER Fluvoxamine Maleate (Fluvoxamine Maleate) 100 Mg Tablet, 300 MG PO DAILY06, ( Reported) Entered as Reported by: LAWRENCE HILL on 09/16/16 1057 Last Action: Converted on 11/07/181812 by JAYY WHITAKER Lactobacillus Rhamnosus Gg (Culturelle) 1 Each Cap.sprink, 1 CAP PO BID for diarrhea for 7 Days, #14 Prescribed by: MARISA BASS MD on 11/12/18 1030 Levothyroxine Sodium (Synthroid) 75 Mcg Tablet, 75 MCG PO DAILY06 for Hypothyroidism for 30 Days, #30 Ref 2 Prescribed by: MARISA BASS MD on 11/12/18 1030 Lisinopril (Lisinopril) 5 Mg Tablet, 5 MG PO DAILY, #30 Ref 2 Prescribed by: YOSEF QUINONES on 01/18/17 1316 Last Action: Converted on 11/07/181812 by JAYY WHITAKER Lorazepam (Ativan) 2 Mg Tablet, 2 MG PO HS, (Reported) Entered as Reported by: BRI HADDAD on 01/16/17 1834 Last Action: Converted on 11/07/181812 by JAYY WHITAKER [place]-3 Fatty Acids/Fish Oil ([place] 3 1,000 Mg Softgel) 1 Each Capsule, 1 EACH PO TID, (Reported) Entered as Reported by: QASIM THOMPSON on 07/22/13 1111 Last Action: Converted on 11/07/181812 by JAYY WHITAKER Oxycodone/Apap 10-325 (Percocet 10-325 Mg Tablet ) 1 Each Tablet, 1 TAB PO Q4HRS, #40 (Reported) Entered as Reported by: BRI PEREIRA on 06/09/15 1120 Last Action: Reviewed on 11/07/181811 by JAYY WHITAKER Prednisone (Prednisone) 20 Mg Tablet, 20 MG PO DAILY, (Reported) Entered as Reported by: GONZALES TORRES on 09/29/15 1159 Last Action: Continued on 11/07/181812 by JAYY WHITAKER Primidone (Mysoline) 250 Mg Tablet, 250 MG PO BID, (Reported) Entered as Reported by: QASIM THOMPSON on 07/22/13 1125 Last Action: Converted on 11/07/181812 by JAYY WHITAKER Quetiapine Fumarate (Quetiapine Fumarate) 25 Mg Tablet, 50 MG PO QHS for Mood disorder for 30 Days, #60 Ref 2 Prescribed by: MARISA BASS MD on 11/12/18 1030 Scheduled PRN Docusate Sodium (Colace) 100 Mg Capsule, 1 CAP PO BID PRN for CONSTIPATION, #30 (Reported) Entered as Reported by: LAWRENCE HILL on 09/16/161102 Last Action: Continued on 11/07/181812 by JAYY WHITAKER Hydromorphone Hcl (Dilaudid) 8 Mg Tablet, 1 TAB PO Q4-6HRS PRN for PAIN, #180 (Reported) Entered as Reported by: BRI HADDAD on 01/16/171835 Last Action: Converted on 11/07/181812 by JAYY WHITAKER Sennosides (Senna) 8.6 Mg Tablet, 8.6 MG PO for CONSTIPATION, (Reported) Entered as Reported by: LAWRENCE HILL on 09/16/161102 Last Action: Reviewed on 11/07/181811 by JAYY WHITAKER Miscellaneous Medications Vitamin E (Dl,Tocopheryl Acet) (Vitamin E) 400 Unit Capsule, 400 UNIT PO, (Reported) Entered as Reported by: LISA OREILLY on 10/04/16 1212 Last Action: Reviewed on 11/07/181811 by JAYY WHITAKER Discontinued Medications Cyclobenzaprine Hcl (Cyclobenzaprine Hcl) 10 Mg Tablet, 10 MG PO TID PRN for MUSCLE SPASMS, (Reported) Entered as Reported by: BRI PEREIRA on 06/25/14 1419 Last Action: Discontinued on 11/07/181811 by MARISA BRICEÑO MD Nov 12, 2018 10:26
[2018-11-12] MEDS ORDERED: LEVO75TA PO (10:30)
[2018-11-12] MEDS ORDERED: AMOX1TAB11 PO (10:30)
[2018-11-12] MEDS ORDERED: QUET25TA PO (10:30)
[2018-11-12] MEDS ORDERED: LACT1CAP19 PO (10:30)
--- NOTE | 2018-11-12 10:30 | PDOC ---
PROGRESS NOTES Subjective Subjective He still admits headache and neck pain. Objective Objective Vital Signs Date Time Temp Pulse Resp B/P (MAP) Pulse Ox O2 Delivery O2 Flow Rate FiO2 11/12/18 08:54 64 135/85 11/12/18 07:41 95 Room Air 11/12/18 07:00 97.3 18 97.3 11/11/18 19:03 2.0 Intake and Output 11/12/18 06:59 Intake Total 580 ml Output Total 1210 ml Balance -630 ml Intake Oral 580 ml Output Urine Total 1210 ml Physical Exam Physical Exam He is alert,supine in bed and he continues with painfully limited cervical spine ROM and mobility and self care limitations.His at bedside and feels confident aboout helping him at home. Plan Plan of Care Agree with plans for home with home health follow up when medically stable. Comment Review of Relevant I have reviewed the following items sujit (where applicable) has been applied. Labs Microbiology 11/09/18 Urine Culture - Final, Complete 11/09/18 Urine Culture Result 1 (LAINEY) - Final, Complete Medications Current Medications Hydromorphone HCl (Dilaudid) 8 mg PRN Q4HRS PRN PO PAIN; Start 11/07/18 at 18:00; Status Cancel Quetiapine Fumarate (SEROquel) 50 mg QHS PO Last administered on 11/11/18at 21:25; Start 11/07/18 at 21:00 Oxycodone/ Acetaminophen (Percocet 10/325) 1 tab PRN Q4HRS PRN PO moderate pain Last administered on 11/12/18at 04:35; Start 11/07/18 at 18:15 Atorvastatin Calcium (Lipitor) 40 mg QHS PO Last administered on 11/11/18at 21:35; Start 11/07/18 at 21:00 Cyclobenzaprine HCl (Flexeril) 10 mg BID PO Last administered on 11/12/18at 08:53; Start 11/07/18 at 21:00 Divalproex Sodium (Depakote Er) 500 mg BID PO Last administered on 11/12/18at 08:54; Start 11/07/18 at 21:00 Docusate Sodium (Colace) 100 mg PRN BID PRN PO CONSTIPATION; Start 11/07/18 at 18:15; Stop 11/10/18 at 07:35; Status DC Prednisone (Prednisone) 20 mg DAILY PO Last administered on 11/12/18 08:54; Start 11/08/18 at 09:00 Non-Formulary Medication (Fluvoxamine Maleate ) 300 mg DAILY06 PO ; Start 11/08/18 at 06:00; Stop 11/09/18 at 08:34; Status DC Hydromorphone HCl (Dilaudid) 8 mg PRN Q4HRS PRN PO SEVERE PAIN Last admi nistered on 11/12/18 08:54; Start 11/07/18 at 18:30 Lisinopril (Prinivil) 5 mg DAILY PO Last administered on 11/09/18 08:30; Start 11/08/18 at 09:00; Stop 11/09/18 at 10:01; Status DC Lorazepam (Ativan) 2 mg HS PO Last administered on 11/11/18 21:36; Start 11/07/18 at 21:00 Fish Oil (Fish Oil) 1,000 mg TID PO Last administered on 11/12/18 08:54; Start 11/07/18 at 21:00 Primidone (Mysoline) 250 mg BID PO Last administered on 11/12/18 08:54; Start 11/07/18 at 21:00 Ceftriaxone Sodium (Rocephin) 1 gm Q24H IVP Last administered on 11/12/18 00:18; Start 11/07/18 at 23:00; Stop 11/12/18 at 07:56; Status DC Doxycycline Hyclate (Vibra-Tab) 100 mg BID PO Last administered on 11/12/18 08:53; Start 11/07/18 at 23:00 Albuterol/ Ipratropium (Duoneb) 3 ml RTQID NEB Last administered on 11/12/18 07:41; Start 11/08/18 at 08:00 Enoxaparin Sodium (Lovenox Per Pharmacy Prophylaxis Dosing) 1 each PRN DAILY PRN MC SEE COMMENTS; Start 11/07/18 at 22:15 Enoxaparin Sodium (Lovenox 40mg Syringe) 40 mg QHS SQ Last administered on 11/11/18at 21:28; Start 11/07/18 at 23:00 Lactobacillus Rhamnosus (Culturelle) 1 cap BID PO Last administered on 11/12/18 08:54; Start 11/08/18 at 09:00 Aspirin (Ecotrin) 325 mg DAILYWBKFT PO Last administered on 11/12/18 08:53; Start 11/08/18 at 11:00 Potassium Chloride (Klor-Con) 20 meq 1X ONCE PO Last administered on 11/08/18 15:48; Start 11/08/18 at 11:45; Stop 11/08/18 at 11:46; Status DC Levothyroxine Sodium (Synthroid) 75 mcg DAILY06 PO Last administered on 11/09/18 06:03; Start 11/08/18 at 16:00; Stop 11/09/18 at 10:00; Status DC Non-Formulary Medication (Fluvoxamine Maleate ) 100 mg TID PO Last administered on 11/12/18 08:55; Start 11/09/18 at 09:00 Levothyroxine Sodium (Synthroid) 75 mcg DAILY06 PO Last administered on 11/12/18 04:35; Start 11/10/18 at 06:00 Lisinopril (Prinivil) 10 mg DAILY PO Last administered on 11/12/18 08:54; Start 11/10/18 at 09:00 Lisinopril (Prinivil) 5 mg 1X ONCE PO Last administered on 11/09/18 13:26; Start 11/09/18 at 11:00; Stop 11/09/18 at 11:01; Status DC Polyethylene Glycol (miraLAX PACKET) 17 gm DAILY PO Last administered on 11/12/18 08:54; Start 11/09/18 at 10:00 Docusate Sodium (Colace) 100 mg PRN DAILY PRN PO CONSTIPATION; Start 11/09/18 at 10:15 Docusate Sodium (Colace) 100 mg DAILY PO Last administered on 11/12/18 08:54; Start 11/09/18 at 11:00 Acetaminophen/ Butalbital/ Caffeine (Fioricet) 2 tab PRN Q6HRS PRN PO MIGRAINE HEADACHE Last administered on 11/12/18 07:21; Start 11/09/18 at 10:30 Barium Sulfate (Varibar Thin Liquid Apple) 148 gm 1X ONCE PO Last administered on 11/11/18 10:15; Start 11/11/18 at 09:00; Stop 11/11/18 at 09:01; Status DC Acetaminophen (Tylenol) 650 mg PRN Q6HRS PRN PO HEADACHE Last administered on 11/12/18at 00:39; Start 11/12/18 at 00:45 Amoxicillin/ Clavulanate Potassium (Augmentin 875/ 125mg) 1 tab BID PO Last administered on 11/12/18at 08:54; Start 11/12/18 at 09:00 Active Scripts Active Lisinopril 5 Mg Tablet 5 Mg PO DAILY Atorvastatin Calcium 40 Mg Tablet 40 Mg PO QHS Reported Cyclobenzaprine Hcl 10 Mg Tablet 1 Tab PO BID Dilaudid (Hydromorphone Hcl) 8 Mg Tablet 1 Tab PO Q4-6HRS PRN Ativan (Lorazepam) 2 Mg Tablet 2 Mg PO HS Vitamin E (Vitamin E (Dl,Tocopheryl Acet)) 400 Unit Capsule 400 Unit PO Senna (Sennosides) 8.6 Mg Tablet 8.6 Mg PO PRN Colace (Docusate Sodium) 100 Mg Capsule 1 Cap PO BID PRN Fluvoxamine Maleate 100 Mg Tablet 300 Mg PO DAILY06 Depakote Er (Divalproex Sodium) 500 Mg Tab.er.24h 1 Tab PO BID Prednisone 20 Mg Tablet 20 Mg PO DAILY Percocet 10-325 Mg Tablet (Oxycodone/Acetaminophen) 1 Each Tablet 1 Tab PO Q4HRS Mysoline (Primidone) 250 Mg Tablet 250 Mg PO BID [place] 3 1,000 Mg Softgel ([place]-3 Fatty Acids/Fish Oil) 1 Each Capsule 1 Each PO TID Vitals/I & O Vital Sign - Last 24 Hours 11/11/18 11/11/18 11/11/18 11/11/18 10:45 12:29 13:07 15:00 Temp 98.3 98.3 Pulse 71 Resp 18 B/P (MAP) 133/92 (106) Pulse Ox 93 93 O2 Delivery Room Air Room Air Room Air Room Air O2 Flow Rate 2.0 11/11/18 11/11/18 11/11/18 11/11/18 15:00 16:20 18:03 19:03 Temp 97.7 97.7 Pulse 58 Resp 18 B/P (MAP) 132/78 (96) Pulse Ox 93 93 O2 Delivery Room Air Room Air Room Air O2 Flow Rate 2.0 2.0 11/11/18 11/11/18 11/11/18 11/11/18 19:25 20:00 21:19 22:50 Temp 98.1 97.1 98.1 97.1 Pulse 67 60 Resp 20 20 B/P (MAP) 144/89 (107) 111/76 (88) Pulse Ox 93 94 O2 Delivery Room Air Room Air Room Air Room Air 11/12/18 11/12/18 11/12/18 11/12/18 03:10 04:35 05:44 07:00 Temp 97.5 97.3 97.5 97.3 Pulse 62 64 Resp 20 20 16 18 B/P (MAP) 111/81 (91) 135/85 (102) Pulse Ox 94 94 94 95 O2 Delivery Room Air Room Air Room Air Room Air 11/12/18 11/12/18 11/12/18 07:27 07:41 08:54 Pulse 64 B/P (MAP) 135/85 Pulse Ox 95 O2 Delivery Room Air Room Air Intake and Output 11/11/18 11/11/18 11/12/18 14:59 22:59 06:59 Intake Total 480 ml 100 ml Output Total 225 ml 580 ml 405 ml Balance 255 ml -580 ml -305 ml JUSTIN BIRD MD Nov 12, 2018 10:30
--- NOTE | 2018-11-12 10:32 | SNU/HH DC ---
DISCHARGE WITH HOME HEALTH DISCHARGE INFORMATION: Discharge Date: Nov 12, 2018 Final Diagnosis: C2 fracture Condition on Discharge: Stable CODE STATUS: Code Status: Full HOME HEALTH: Face to Face: I certify this patient is under my care and that I, or a nurse practitioner or physician's grants and contracts assistant working with me, had a face to face encounter that meets the physician face to face encounter requirements with this patient on 11/12/2018. Medical Complications: DJD, Falls, FX, Pneumonia Nursing Home For: Assess & Educate Safety, Assess/Skilled Observatio, Pain Management RN For Eval/Treatment: Yes Physical Therapy For: Evalulation/Treatment Occupational Therapy For: Evaluation/Treatment Speech Language Pathology For: Evaluation/Treatment Home Health Aide For: Self-care Pt Meets Homebound Status: Poor coordination w/ amb., Frequent falls w/ injury POST DISCHARGE ORDERS: Activity Instructions for Disc: Activity as tolerated Weight Bearing Status after Di: As tolerated DIET AFTER DISCHARGE: Dyspahgia I diet, thin liquids via straw. Swallow strategies including sitting upright 90*, single and double straw drinks w/ throat clear after drinking. Pt will require cues for throat clear initially. CHECKS AFTER DISCHARGE: Checks after discharge: Check blood press - daily, Check your Temp as needed FOLLOW-UP: Follow up with: Dr. Hunt Follow Up With: Dr. Figueroa - Cardiology TREATMENT/EQUIPMENT ORDERS: Adaptive Equipment Issued: None CERTIFICATION STATEMENT: Certification Statement: Certification Statement: Based on the above finding, I certify that this patient is confined to the home and needs intermittent retirement care, physical therapy and/or speech therapy, or continues to need occupational therapy.~ This patient is under my care, and I have initiated the establishment of the plan of care.~ This patient will be followed by myself or a community physician who will periodically review the plan of care. Home Meds Active Scripts Aspirin (ASPIRIN EC) 325 Mg Tablet., 325 MG PO DAILYWBKFT for Aflutter for 30 Days, #30 TAB.SR 11 Refills Prov:MARISA BASS MD 11/12/18 Lactobacillus Rhamnosus Gg (CULTURELLE) 1 Each Cap.sprink, 1 CAP PO BID for diarrhea for 7 Days, #14 CAP Prov:MARISA BASS MD 11/12/18 Quetiapine Fumarate (QUETIAPINE FUMARATE) 25 Mg Tablet, 50 MG PO QHS for Mood disorder for 30 Days, #60 TAB 2 Refills Prov:MARISA BASS MD 11/12/18 Levothyroxine Sodium (SYNTHROID) 75 Mcg Tablet, 75 MCG PO DAILY06 for Hypothyroidism for 30 Days, #30 TAB 2 Refills Prov:MARISA BASS MD 11/12/18 Amoxicillin/Potassium Clav (AMOX TR-K CLV 875-125 MG TAB) 1 Each Tablet, 1 TAB PO BID for Pneumonia for 5 Days, #10 TAB Prov:MARISA BASS MD 11/12/18 Lisinopril (LISINOPRIL) 5 Mg Tablet, 5 MG PO DAILY, #30 TAB 2 Refills Prov:YOSEF QUINONES MD 01/18/17 Atorvastatin Calcium (ATORVASTATIN CALCIUM) 40 Mg Tablet, 40 MG PO QHS, #30 TAB 2 Refills Prov:YOSEF QUINONES MD 01/18/17 Reported Medications Cyclobenzaprine Hcl (CYCLOBENZAPRINE HCL) 10 Mg Tablet, 1 TAB PO BID for muscle spasms, #90 TAB 11/07/18 Hydromorphone Hcl (DILAUDID) 8 Mg Tablet, 1 TAB PO Q4-6HRS PRN for PAIN, #180 TAB 01/16/17 Lorazepam (ATIVAN) 2 Mg Tablet, 2 MG PO HS, TAB 01/16/17 Vitamin E (Dl,Tocopheryl Acet) (VITAMIN E) 400 Unit Capsule, 400 UNIT PO, CAP 10/04/16 Sennosides (SENNA) 8.6 Mg Tablet, 8.6 MG PO PRN for CONSTIPATION 09/16/16 Docusate Sodium (COLACE) 100 Mg Capsule, 1 CAP PO BID PRN for CONSTIPATION, #30 CAP 09/16/16 Fluvoxamine Maleate (FLUVOXAMINE MALEATE) 100 Mg Tablet, 300 MG PO DAILY06 09/16/16 Divalproex Sodium (DEPAKOTE ER) 500 Mg Tab.er.24h, 1 TAB PO BID, #60 TAB 2 Refills 09/16/16 Prednisone (PREDNISONE) 20 Mg Tablet, 20 MG PO DAILY, TAB 09/29/15 Oxycodone/Apap 10-325 (PERCOCET 10-325 MG TABLET ) 1 Each Tablet, 1 TAB PO Q4HRS, #40 TAB 06/09/15 Primidone (MYSOLINE) 250 Mg Tablet, 250 MG PO BID 07/22/13 [place]-3 Fatty Acids/Fish Oil (OMEGA 3 1,000 MG SOFTGEL) 1 Each Capsule, 1 EACH PO TID 07/22/13 Discontinued Reported Medications Cyclobenzaprine Hcl (CYCLOBENZAPRINE HCL) 10 Mg Tablet, 10 MG PO TID PRN for MUSCLE SPASMS, TAB 06/25/14 MARISA BASS MD Nov 12, 2018 10:32
[2018-11-12] MEDS ORDERED: ASPI325T11 PO (10:33)
--- NOTE | 2018-11-12 10:53 | NUR ---
SS following up with discharge planning. Discharge orders received for home healthcare. SS phoned and faxed discharge orders and referral to [facility], ; fax [phone]. Pt's RN notified.
[2018-11-12 11:00] VITALS: BP 144/83
--- NOTE | 2018-11-12 14:03 | NUR ---
Discharge Note: [facility] Discharge instructions and discharge home medications reviewed with Spouse and a copy given. All questions have been answered and understanding verbalized. The following instructions and handouts were given: Discharge instructions, new prescriptions, education and follow up recommendations. Discontinued lines and drains: Peripheral IV discontinued intact. Patient discharged to Home w/services with Spouse via Wheelchair off unit by [facility]
== END 2018-11-12 14:06 | disposition home health service (06) | DRG 551 ==
LOC: 4 NORTH 17:18 → 2 SOUTH 17:52
PROVIDERS: ADMIT Internal Medicine; ATTEND Internal Medicine
DX: S12.100A Unspecified displaced fracture of second cervical vertebra, initial encounter for closed fracture (principal); J18.9 Pneumonia, unspecified organism; I48.92 Unspecified atrial flutter; F31.30 Bipolar disorder, current episode depressed, mild or moderate severity, unspecified; I50.32 Chronic diastolic (congestive) heart failure; J98.11 Atelectasis; E66.01 Morbid (severe) obesity due to excess calories; E78.5 Hyperlipidemia, unspecified; G89.29 Other chronic pain; I11.0 Hypertensive heart disease with heart failure; M35.9 Systemic involvement of connective tissue, unspecified; F41.9 Anxiety disorder, unspecified; M54.5 Low back pain; I27.20 Pulmonary hypertension, unspecified; I44.0 Atrioventricular block, first degree; M06.9 Rheumatoid arthritis, unspecified; R29.6 Repeated falls; W01.0XXA Fall on same level from slipping, tripping and stumbling without subsequent striking against object, initial encounter; Z79.52 Long term (current) use of systemic steroids; Z79.891 Long term (current) use of opiate analgesic; Z82.49 Family history of ischemic heart disease and other diseases of the circulatory system; Z87.01 Personal history of pneumonia (recurrent); Z68.37 Body mass index [BMI] 37.0-37.9, adult; Z86.711 Personal history of pulmonary embolism; Z90.49 Acquired absence of other specified parts of digestive tract; Z91.81 History of falling; Y93.89 Activity, other specified; Y92.89 Other specified places as the place of occurrence of the external cause; Y99.8 Other external cause status
CPT/HCPCS: 36415; 71045; 74230; 80048; 80053; 84439; 84443; 84481; 85025; 87086; 93005; 94640; 94760; G0238; J0696; J1650; J7512; J7620; 92526; 92610; 92611; 97110; 97116